=== PATIENT | female | born 1960 | race Hispanic/Latino ===

== ENCOUNTER 2023-12-21 11:14 | Emergency (ER) | payer OTHER ==
--- OUTSIDE RECORDS SUMMARY | 2023-12-21 11:17 | XMS REPORT | Continuity of Care Document ---
Author Name Unknown Address [address] [facility] [address] [place] [id number] [facility] Address [address] [facility] [address] [place] [address] Care Team Providers Care Airways Control Specialist Name Role Phone Randy Boyer Primary Care Physician [phone] Randy Boyer Attending Clinician Unavailable Mily Fuentes Attending Clinician Unavailab toan RADIOLOGY Attending Clinician Unavailable Ninoska Chris MD Attending Clinician [phone] NINOSKA CHRIS Attending Clinician Unavailable Doctor Unassigned, [place] Attending Clinician U navailable [email or web address]_S Attending Clinician UnavailFORREST Dowell Attending Clinician Unavailable Forrest Silveira MD Attending Clinician [phone] Radiology Attending Clinician Unavailable NINOSKA CHRIS Admitting Clinician Unavailable GC_[email or web address]_Kadiyala_S Admitting Clinician UnavailSIERRA Guardado Admitting Clinician Unavailable Payers Payer Name Policy Type Policy Number Effective Date Expirati on Date Source [facility] [id number] 2023 00:00:00 [facility] [id number] 2021 00:00:00 Problems Condition Name Condition Details Condition Category Status Onset Date Resolution Date Last Treatment Date Treating Clinician Comments Source Positive colorectal cancer screening using Cologuard test Positive colorectal cancer screening using Cologuard test Disease Active 11-26 00:00: 00 [facility] Colon cancer screening Colon cancer screening Disease Active 11-26 00:00: 00 [facility] Vasomotor symptoms due to menopause Vasomotor symptoms due to menopause Disease Active 01-14 00:00: 00 [facility] [id number] 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 Problem Active [facility] [id number] Nontraumat ic tear of left rotator cuff, unspecifie d tear extent Problem Active [facility] Allergies, Adverse Reactions, Alerts Allergy Name Allergy Type Status Severity Reaction(s) Onset Date Inactive Date Treating Clinician Comments Source Penicill in Propensi ty to adverse reaction s Active Itching 01-14 00:00: 00 [facility] PENICILL IN DRUG INGREDI Active ITCHING 01-14 00:00: 00 [facility] AMOXICIL JONNA DRUG INGREDI Active ITCHING 2014-09 00:00: 00 [facility] CODEINE DRUG INGREDI Active ITCHING 2014-09 00:00: 00 [facility] Amoxicil jonna Amoxicil jonna Active Unknown [facility] Codeine Codeine Active nausea and vomiting [facility] Social History Social Habit Start Date Stop Date Quantity Comments Source Sex Assigned At [facility] History SDOH Alcohol Frequency [facility] History SDOH Alcohol Std Drinks [facility] History SDOH Alcohol Binge [facility] History of tobacco use Passive smoker [facility] intake 2023-12-13 00:00:00 2023-12-13 00:00:00 0 /d [facility] Tobacco use and exposure 2023-12-13 00:00:00 2023-12-13 00:00:00 Former smokeless tobacco user [facility] Tobacco Comment 2023-11-27 00:00:00 2023-11-27 00:00:00 1-2 cigs occasional [facility] History of Social function 2023-11-27 00:00:00 2023-11-27 00:00:00 [facility] Alcohol Comment 2022-01-14 00:00:00 2022-01-14 00:00:00 ocassional [facility] Smoking Status Start Date Stop Date Source Smokes tobacco daily 2023-12-13 00:00:00 [facility] Ex-smoker 2023-11-27 00:00:00 2023[facility]27 [facility] Ordered Medication Name Filled Medication Name Start Date Stop Date Current Medication? Ordering Clinician Indication Dosage Frequency Signature (SIG) Comments Components Source dextroamphe tamine-amph etamine (ADDERALL) 30 mg tablet 12-12 12:17: 31 Yes 30mg Take 1 tablet by mouth in the morning and 1 tablet in the evening. [facility] ALBUTEROL SULFATE (VENTOLIN INHALE) 12-12 12:17: 31 Yes Inhale as needed. [facility] LORazepam (ATIVAN) 1 mg tablet 12-12 12:17: 31 Yes 1mg Take 1 tablet by mouth as needed for Anxiety or Agitation. [facility] ferrous sulfate (IRON ORAL) 12-12 12:17: 31 Yes Take by mouth. [facility] atorvastati n 10 mg tablet 12-12 12:17: 31 Yes 10mg Take 1 tablet by mouth at bedtime. [facility] Kenalog (Triamcinol one) Kenalog (Triamcinol one) 12-03 00:00: 00 No 1mL [facility] BUPivacaine HCl BUPivacaine HCl 12-03 00:00: 00 No 5mL [facility] LORazepam (ATIVAN) 1 mg tablet 11-26 09:30: 37 Yes 1mg Take 1 tablet by mouth as needed for Anxiety or Agitation. [facility] sodium,pota ssium,mag sulfates 17.5-3.13-1 .6 gram 18 00:00: 00 11-27 04:59 :00 No 177mL Take 177 mL by mouth once now for 1 dose. [facility] peg-electro lyte soln (GOLYTELY) 236-22.74-6 .74 -5.86 gram solution 18 00:00: 00 11-27 04:59 :00 No 4000mL Take 4,000 mL by mouth once now for 1 dose. [facility] oxybutynin XL 5 mg 24 hr tablet 11-21 00:00: 00 Yes 5mg Take 1 tablet by mouth every morning. [facility] Kenalog (Triamcinol one) Kenalog (Triamcinol one) - 00:00: 00 No 1mL [facility] BUPivacaine HCl BUPivacaine HCl 11-19 00:00: 00 No 4mL [facility] Kenalog (Triamcinol one) Kenalog (Triamcinol one) 11-19 00:00: 00 No 1mL [facility] BUPivacaine HCl BUPivacaine HCl 11-19 00:00: 00 No 4mL [facility] famotidine 20 mg tablet 2022-09 00:00: 00 Yes 20mg Take 1 tablet by mouth at bedtime. [facility] meloxicam 7.5 mg tablet 2022-09 00:00: 00 Yes 7.5mg Take 1 tablet by mouth at bedtime. [facility] fluticasone propion-maksim meteroL 250-50 mcg/dose inhalation disk 2022-09 00:00: 00 Yes Inhale every 12 (twelve) hours. [facility] omeprazole 40 mg capsule 2022-09 00:00: 00 Yes 40mg Take 1 capsule by mouth at bedtime. [facility] Kenalog (Triamcinol one) Kenalog (Triamcinol one) 9- 00:00: 00 No 40mg [facility] Naropin (Ropivacain e HCl) Naropin (Ropivacain e HCl) 05-12 00:00: 00 No 5mg [facility] Naropin (Ropivacain e HCl) Naropin (Ropivacain e HCl) 9 00:00: 00 No 5mg [facility] Kenalog (Triamcinol one) Kenalog (Triamcinol one) 9- 00:00: 00 No 40mg [facility] Kenalog (Triamcinol one) Kenalog (Triamcinol one) 9 00:00: 00 No 40mg [facility] Naropin (Ropivacain e HCl) Naropin (Ropivacain e HCl) 05-12 00:00: 00 No 5mg [facility] Bupivicaine Cookson Bupivicaine Cookson 8- 00:00: 00 No 2.5mg [facility] Kenalog (Triamcinol one) Kenalog (Triamcinol one) 8- 00:00: 00 No 40mg [facility] Kenalog (Triamcinol one) Kenalog (Triamcinol one) 8- 00:00: 00 No 40mg [facility] Bupivicaine Cookson Bupivicaine Cookson 8- 00:00: 00 No 2.5mg [facility] Kenalog (Triamcinol one) Kenalog (Triamcinol one) 8- 00:00: 00 No 40mg [facility] Bupivicaine Cookson Bupivicaine Cookson 8- 00:00: 00 No 2.5mg [facility] dextroamphe tamine-amph etamine (ADDERALL) 30 mg tablet 5-06 14:14: 16 Yes 30mg Take 30 mg by mouth 2 (two) times daily. [facility] ALBUTEROL SULFATE (VENTOLIN INHALE) 01-14 14:14: 16 Yes Inhale as needed. [facility] LORazepam (ATIVAN) 1 mg tablet 01-14 14:14: 16 Yes 1mg Take 1 mg by mouth as needed for Anxiety or Agitation. [facility] ESTROGENS, CONJUGATED (PREMARIN ORAL) 01-14 14:14: 16 Yes Take by mouth. [facility] atorvastati n 10 mg tablet 01-14 14:14: 16 Yes 10mg Take 10 mg by mouth at bedtime. [facility] conjugated estrogens (PREMARIN) 0.625 mg tablet 01-14 00:00: 00 Yes [id number] .625mg Take 1 tablet by mouth daily. [facility] Bupivicaine Cookson Bupivicaine Cookson 11-24 00:00: 00 No 2.5mg [facility] Kenalog (Triamcinol one) Kenalog (Triamcinol one) 16 00:00: 00 No 40mg [facility] Bupivicaine Cookson Bupivicaine Cookson 16 00:00: 00 No 2.5mg [facility] Kenalog (Triamcinol one) Kenalog (Triamcinol one) -16 00:00: 00 No 40mg [facility] Bupivicaine Cookson Bupivicaine Cookson 16 00:00: 00 No 2.5mg [facility] Kenalog (Triamcinol one) Kenalog (Triamcinol one) -16 00:00: 00 No 40mg [facility] Bupivicaine Cookson Bupivicaine Cookson 1-25 00:00: 00 No 2.5mg [facility] Kenalog (Triamcinol one) Kenalog (Triamcinol one) 1-25 00:00: 00 No 40mg [facility] Kenalog (Triamcinol one) Kenalog (Triamcinol one) 0 - 00:00: 00 No 40mg [facility] Bupivicaine Cookson Bupivicaine Cookson 2020-0 10-05 00:00: 00 No 2.5mg [facility] Kenalog (Triamcinol one) Kenalog (Triamcinol one) 2020-0 - 00:00: 00 No 40mg [facility] Bupivicaine Cookson Bupivicaine Cookson 2020-0 10-05 00:00: 00 No 2.5mg [facility] Bupivicaine Cookson Bupivicaine Cookson 2019-0 9- 00:00: 00 No 5mL [facility] Kenalog (Triamcinol one) Kenalog (Triamcinol one) 2019-0 9- 00:00: 00 No 40mg [facility] Kenalog (Triamcinol one) Kenalog (Triamcinol one) 2019-0 9- 00:00: 00 No 40mg [facility] Bupivicaine Cookson Bupivicaine Cookson 2019-0 9- 00:00: 00 No 5mL [facility] Kenalog (Triamcinol one) Kenalog (Triamcinol one) 2019-0 9- 00:00: 00 No 40mg [facility] Bupivicaine Cookson Bupivicaine Cookson 2019-0 9-29 00:00: 00 No 5mL [facility] Bupivicaine Cookson Bupivicaine Cookson 2019-0 6-09 00:00: 00 No 5mL [facility] Kenalog (Triamcinol one) Kenalog (Triamcinol one) 2019-0 6- 00:00: 00 No 40mg [facility] Bupivicaine Cookson Bupivicaine Cookson 2019-0 6-09 00:00: 00 No 5mL [facility] Kenalog (Triamcinol one) Kenalog (Triamcinol one) 02-17 00:00: 00 No 40mg [facility] Bupivicaine Cookson Bupivicaine Cookson 02-17 00:00: 00 No 5mL [facility] Kenalog (Triamcinol one) Kenalog (Triamcinol one) 02-17 00:00: 00 No 40mg [facility] Albuterol Sulfate HFA Albuterol Sulfate HFA No Albuterol Sulfate HFA Amoxicillin -Pot Clavulanate Amoxicillin -Pot Clavulanate No Amoxicilli n-Pot Clavulanat e LORazepam LORazepam No LORazepam Immunizations Ordered Immunization Name Filled Immunization Name Date Status Comments Source SARS-COV-2 COVID-19 PFIZER VACCINE 2021-05-19 00:00:00 Completed [facility] SARS-COV-2 COVID-19 PFIZER VACCINE 2021-05-19 00:00:00 Completed [facility] SARS-COV-2 COVID-19 PFIZER VACCINE 2021-04-26 00:00:00 Completed [facility] SARS-COV-2 COVID-19 PFIZER VACCINE 2021-04-26 00:00:00 Completed [facility] SARS-COV-2 COVID-19 PFIZER VACCINE Unknown Completed [facility] SARS-COV-2 COVID-19 PFIZER VACCINE Unknown Completed [facility] SARS-COV-2 COVID-19 PFIZER VACCINE Unknown Completed [facility] SARS-COV-2 COVID-19 PFIZER VACCINE Unknown Completed [facility] SARS-COV-2 COVID-19 PFIZER VACCINE Unknown Completed [facility] SARS-COV-2 COVID-19 PFIZER VACCINE Unknown Completed [facility] SARS-COV-2 COVID-19 PFIZER VACCINE Unknown Completed [facility] SARS-COV-2 COVID-19 PFIZER VACCINE Unknown Completed [facility] SARS-COV-2 COVID-19 PFIZER VACCINE Unknown Completed [facility] SARS-COV-2 COVID-19 PFIZER VACCINE Unknown Completed [facility] SARS-COV-2 COVID-19 PFIZER VACCINE Unknown Completed [facility] SARS-COV-2 COVID-19 PFIZER VACCINE Unknown Completed [facility] SARS-COV-2 COVID-19 PFIZER VACCINE Unknown Completed [facility] SARS-COV-2 COVID-19 PFIZER VACCINE Unknown Completed [facility] SARS-COV-2 COVID-19 PFIZER VACCINE Unknown Completed [facility] SARS-COV-2 COVID-19 PFIZER VACCINE Unknown Completed [facility] SARS-COV-2 COVID-19 PFIZER VACCINE Unknown Completed [facility] SARS-COV-2 COVID-19 PFIZER VACCINE Unknown Completed [facility] SARS-COV-2 COVID-19 PFIZER VACCINE Unknown Completed [facility] SARS-COV-2 COVID-19 PFIZER VACCINE Unknown Completed [facility] Vital Signs Vital Name Observation Time Observation Value Comments S ource temperature 2023-12-04 14:30:00 98.0 [degF] Com mon [facility] bmi 2023-12-04 14:30:00 20.52 kg/m2 Comm on [facility] blood pressure systolic 2023-12-04 14:30:00 112 mm[Hg] [facility] blood pressure diastolic 2023-12-04 14:30:00 74 mm[Hg] [facility] height 2023-12-04 14:30:00 62.5 [in_i] Comm on [facility] weight 2023-12-04 14:30:00 114 [lb_av] Comm on [facility] Systolic blood pressure 2023-11-27 14:33:00 137 mm[Hg] [facility] Diastolic blood pressure 2023-11-27 14:33:00 72 mm[Hg] [facility] Heart rate 2023-11-27 14:33:00 53 /min [facility] Body temperature 2023-11-27 14:33:00 36.72 Lotus [facility] Respiratory rate 2023-11-27 14:33:00 12 /min [facility] Body height 2023-11-27 14:33:00 160 cm [facility] Body weight 2023-11-27 14:33:00 53.706 kg [facility] BMI 2023-11-27 14:33:00 20.97 kg/m2 [facility] Oxygen saturation in Arterial blood by Pulse oximetry 2023-11-27 14:33:00 96 /min [facility] height 2023-11-20 15:00:00 62.5 [in_i] Comm on [facility] weight 2023-11-20 15:00:00 114 [lb_av] Comm on [facility] temperature 2023-11-20 15:00:00 98.4 [degF] Com [facility] bmi 2023-11-20 15:00:00 20.52 kg/m2 Comm on [facility] blood pressure systolic 2023-11-20 15:00:00 118 mm[Hg] Common [facility] blood pressure diastolic 2023-11-20 15:00:00 72 mm[Hg] [facility] height 2022-05-12 14:00:00 62.5 [in_i] Comm on [facility] weight 2022-05-12 14:00:00 114 [lb_av] Comm on [facility] temperature 2022-05-12 14:00:00 97.2 [degF] Com [facility] bmi 2022-05-12 14:00:00 20.52 kg/m2 Comm on [facility] blood pressure systolic 2022-05-12 14:00:00 126 mm[Hg] Common [facility] blood pressure diastolic 2022-05-12 14:00:00 84 mm[Hg] Common [facility] height 2022-04-19 15:30:00 62.5 [in_i] Comm on [facility] weight 2022-04-19 15:30:00 114 [lb_av] Comm on [facility] temperature 2022-04-19 15:30:00 98.0 [degF] Com [facility] bmi 2022-04-19 15:30:00 20.52 kg/m2 Comm on [facility] blood pressure systolic 2022-04-19 15:30:00 114 mm[Hg] [facility] blood pressure diastolic 2022-04-19 15:30:00 72 mm[Hg] Common [facility] t [facility] Systolic blood pressure 2022-01-14 19:11:00 150 mm[Hg] [facility] Diastolic blood pressure 2022-01-14 19:11:00 86 mm[Hg] [facility] Heart rate 2022-01-14 19:11:00 86 /min [facility] Body temperature 2022-01-14 19:11:00 36.72 Lotus [facility] Body height 2022-01-14 19:11:00 160 cm [facility] Body weight 2022-01-14 19:11:00 50.077 kg [facility] BMI 2022-01-14 19:11:00 19.56 kg/m2 [facility] Procedures Procedure Date / Time Performed Performing Clinicia n Source CONSENT/REFUSAL FOR DIAGNOSIS AND TREATMENT 2023-11-27 14:20:16 Doctor Unassigned, [place] [facility] REFERRAL- REQUEST/RESPONSE 2023-10-23 06:01:00 Doctor Unassigned, [place] [facility] Encounters Start Date/Time End Date/Time Encounter Type Admission Type Attending [facility] Facility Care Department Encounter ID Source 2022-04-19 15:30[facility]01 [id number] 2021-10-06 12:46:36 [facility] [id number] [facility] 2021-10-06 12:31:48 [facility] [id number] [facility] 2021-10-06 12:22:24 [facility] [id number] [facility] 2021-10-06 11:48:33 Outpatient Randy BoyerLC STLMLC [id number] [facility] 2023-12-22 00:00:00 2023-12-22 00:00:00 Outpatient R RADIOLOGY [facility] DEVIN [id number] [facility] 2023-12-21 00:00:00 2023-12-21 00:00:00 Telephone Ninoska Chris [facility] 1..840.114 350.1.13.10 4.2.7.2.686 [id number] [facility] 2023-12-04 00:00:00 2023-12-04 00:00:00 OFFICE VISIT ESTAB PT LEVEL 4 [facility] [id number] [facility] 2023-11-27 10:00:00 2023-11-27 11:10:09 Outpatient R NINOSKA CHRIS [facility] [id number] [facility] 2023-11-27 10:00:00 2023-11-27 11:10:09 Office Visit Ninoska Chris [facility] 1..840.114 350.1.13.10 4.2.7.2.686 [id number] [facility] 2023-11-27 00:00:00 2023-11-27 00:00:00 Orders Only Doctor Unassigned, [place] [facility] 1..840.114 350.1.13.10 4.2.7.2.686 [id number] [facility] 2023-11-27 00:00:00 2023-11-27 00:00:00 Telephone Ninoska Chris [facility] [id number] 350.1.13.10 4.2.7.2.686 [id number] [facility] 2023-11-20 00:00:00 2023-11-20 00:00:00 OFFICE VISIT ESTAB PT LEVEL 4 [facility] [id number] [facility] 2023-10-24 00:00:00 2023-10-24 00:00:00 Outpatient GC_GCBZW_Ka diyala_S PRIV PRIV [id number] [facility] 2023-10-23 00:00:00 2023-10-23 00:00:00 Orders Only Doctor Unassigned, [place] [facility] 1.840.114 350.1.13.10 4.2.7.2.686 [id number] [facility] 2023-07-11 00:00:00 2023-07-11 00:00:00 Outpatient GC_GCBZW_Ka diyala_S PRIV PRIV [id number] [facility] 2023-07-10 00:00:00 2023-07-10 00:00:00 Outpatient GC_GCBZW_Ka diyala_S PRIV PRIV [id number] [facility] 2022-07-22 13:00:00 2022-07-22 13:00:00 Outpatient R FORREST SILVEIRA [facility] [id number] [facility] 2022-05-12 00:00:00 2022-05-12 00:00:00 OFFICE VISIT ESTAB PT LEVEL 4 [facility] [id number] [facility] 2022-04-19 00:00:00 2022-04-19 00:00:00 OFFICE VISIT ESTAB PT LEVEL 4 [facility] [id number] [facility] 2022-01-17 00:00:00 2022-01-17 00:00:00 [facility] [id number] 2022-01-14 14:00:00 2022-01-14 14:35:16 Office Visit Forrest Silveira [facility] 1.840.114 350.1.13.10 4.2.7.2.686 [id number] [facility] 2022-01-14 14:00:00 2022-01-14 14:35:16 Outpatient FORREST SETH [facility] [id number] [facility] 2022-01-14 14:00:00 2022-01-14 14:00:00 Outpatient FORREST SETH [facility] [id number] [facility] 2022-01-14 00:00:00 2022-01-14 00:00:00 Orders Only Doctor Unassigned, [place] [facility] [id number] 350.1.13.10 4.2.7.2.686 [id number] [facility] 2021-12-23 00:00:00 2021-12-23 00:00:00 Orders Only Doctor Unassigned, [place] [facility] 1.2.840.114 350.1.13.10 4.2.7.2.686 [id number] [facility] 2021-04-14 00:00:00 2021-04-14 00:00:00 Outpatient [facility] [id number] [facility] 2020-11-24 00:00:00 2020-11-24 00:00:00 Outpatient [facility] [id number] [facility] 2020-10-05 00:00:00 2020-10-05 00:00:00 Outpatient [facility] [id number] [facility] 2020-09-17 13:51:29 2020-09-17 23:59:00 Hospital Encounter Radiology [facility] 1.2.840.114 350.1.13.10 4.2.7.2.686 [id number] [facility] 2020-09-17 13:51:29 2020-09-17 23:59:00 Outpatient R RADIOLOGY [facility] [id number] [facility] 2020-09-17 00:00:00 2020-09-17 00:00:00 [facility] [id number] [facility] 2020-09-14 00:00:00 2020-09-14 00:00:00 Outpatient [facility] [id number] [facility] 2020-09-02 00:00:00 2020-09-02 00:00:00 [facility] [id number] [facility] 2020-08-27 00:00:00 2020-08-27 00:00:00 [facility] [id number] [facility] 2020-08-04 00:00:00 2020-08-04 00:00:00 [facility] [id number] [facility] 2020-06-09 00:00:00 2020-06-09 00:00:00 [facility] [id number] [facility] Notes Date/Time Note Provider Source 2023-12-21 09:33:28 [id number]/ [id number]:33:28 Images from the original note were not included.Patient calling with questions about bowel prep. Reviewed instructions with patient and sent via [employer]. Patient denies any other questions at this time.Bowel Prep instructions:You must have a responsible adult bring you, stay and drive you home the day of the procedure. You will NOT be allowed to travel home alone or in a Taxi, Bus or Uber.You will need to buy:GoLytely - Prescription will be sent to your pharmacyDulcolax 5mg tablets (You will need 4)-Can be purchased over the counterMedications:You may need to change your medication routine if you take medications such as fish oil, diabetes medication, anti-inflammatory medications, or blood thinners. You may take Tylenol.If you take any of the following blood thinners you need to inform your provider and may require clearance from your cranberry grower or PCP: Plavix, Coumadin, Effient, Eliquis, Xarelto, Brilinta or PradaxaOne week before the exam: Do not take Iron supplements. Do not eat nuts, corn or popcorn.The day before the exam: TBDNO SOLID FOOD, MILK OR CREAM PRODUCTSDrink only clear liquids all day (breakfast, lunch, and dinner).Clear liquids include chicken/beef broth, jello, pulp-less fruit Juice, black coffee (no creamer), tea, soft drinks, kiko amina, Gatorade, PowerAde, and popsicles. * NOTHING RED OR PURPLE*At Noon: take two (2) Dulcolax tabletsAt Noon: start drinking GoLytely. You may mix with Jones, Crystal Light, or any other flavoring (as long as it is not red, blue or purple)Drink an 8-oz glass of GoLytely every 10 to 15 minutes until the bottle is half empty (2 L)At 8:00 PM: take two (2) Dulcolax tabletsContinue to drink clear liquids until midnight, then nothing to eat/drink after midnight except for medicationsDay of exam: TBDAt 4:00 AM: Drink one 8-oz glass of GoLytely every 10 to 15 minutes until the second half of the bottle is empty (2 L)Do not eat or drink anything the rest of the morning (if you are scheduled later afternoon you can remain on clear liquids until 2 hours prior to arrival time for procedure). You may take your medications with a small sip of water.NO CHEWING GUM OR HARD CANDY 72972-2Ubtwusroj encounter RiypSS4849-50-27A61:34:24Telepho ne encounter NoteTXT1.2.840.481882.1.13.104.2 .7.2.909563|[id number] kelsy for patient keao76701-4BvvqQAEJLBHPBAXPjmptz mercy C-CDA narrative [id number] A Hall RNUTMBUTMB - [address] CqdpBroxphmpaWccgrxmmtDYPM534103 6163RGAXKVTTCEXGXKMFFIRNNL9800-6 09:34:241.2.840.968171.1.72 .3.15|1.2.840.328137.1.13.104.2. 7.2.727879_[id number] Leslie Aguero RN [facility] 2023-11-30 13:40:09 scd9IQN350QNgnnRcgdF ieeATFWxhqDO KXZNxgceQs32VMUxiefYm6EFGFZcX3KU 1686-37-08F71:40:09 Spoke with patient, states she will be picking up golytley from the pharmacy today. 18630-7Dqsznzyde encounter ApdkOU6328-84-64Z47:41:01Telepho ne encounter NoteTXT1.2.840.485216.1.13.104.2 .7.2.285132|[id number] e for patient kldz92066-1UwbxAKIVVOALZYQLaldpl mercy C-CDA narrative [id number] A Hall RN[address] IszeVegjcqgciAmunymnxwFSOL577712 1740DCDQMGCWRXCOKEUZVNIHUF0035-8 3:41:011.2.840.505660.1.72 .3.15|1.2.840.870729.1.13.104.2. 7.2.727879_[id number] Leslie Aguero RN [facility] 2023-11-27 12:16:10 aqXfsnNlLPTq0YRUgReI 9V4Njo4VJ/Xz CnBSuogJAF4TlzUwueAxnpLI9Z6Eo2Z0 7867-93-65U81:16:10 Pt states she went to pharmacy to pick up driver golytley and pharmacy is trying to give her suprep. Pt is wanting order changed, please assist. 59593-6Xrfyltial encounter AlkaUV1756-75-64O26:17:06Telepho ne encounter NoteTXT1.2.840.669518.1.13.104.2 .7.2.489392|[id number] e for patient mcnh87145-0EtavMCCBAVTERYAHuivkt mercy C-CDA narrative [id number] E [address]TXTX[address] 7606PLPAAMBSAORQGNTCHDGOJV1274-0 2:17:061.2.840.189679.1.72 .3.15|1.2.840.470016.1.13.104.2. 7.2.727879_[id number] Mariam Napier [facility] 2023-11-27 10:00:00 39LyKy1DD2Evo3CnlNb5 QpTk9FsAA1zA xbfhLUwlsFQo09/mKwhAabkFFJXjlpAw 3575-84-99S89:00:00Addended by: GRETCHEN TIM LVN on: 11/27/2023 10:51 AMModules accepted: Orders [id number] YucwpgmwSH2360-71-61E68:51:48Add endum DocumentTXT1.2.840.708347.1.13.1 04.2.7.2.190594|[id number] lable for patient ncuh16882-0YporGNWWGCQUYZXDmmpzd mercy C-CDA narrative [id number] [facility] [address]TXTX[address] 7273RUJRPNYLXMPGKVVCWUDSXI4731-0 0:51:481.2.840.252775.1.72 .3.15|1.2.840.523201.1.13.104.2. 7.2.727879_[id number] Gretchen Tim LVN [facility] 2023-11-27 10:00:00 l6ZGrM1oAsdP5N2qRjLZ VyVZ63RILJIc O6G007jVyc/DOevWvVQsu8754cW4DP/i 8116-92-07S02:00:00Addended by: GRETCHEN TIM LVN on: 11/27/2023 11:38 AMModules accepted: Orders [id number] ZejcnavpUC1583-41-72O12:38:47Add endum DocumentTXT1.2.840.447715.1.13.1 04.2.7.2.101811|[id number] lab for patient yjhh90703-0PkeoQFVXYKUJYBPLnxojd mercy C-CDA narrative textUT[address] FlpbEoywpunbeSmlyontkcUMPH352598 2961NXIUSELJMWVUOSWQEKJVQL6248-2 :38:471.2.840.832267.1.72 .3.15|1.2.840.003863.1.13.104.2. 7.2.727879_[id number] [facility]"
[2023-12-21] MEDS ORDERED: ONDANSETRON 4 MG/2 ML VIAL ONE (11:31)
[2023-12-21] MEDS ORDERED: MORPHINE 4 MG/ML SYR ONE (11:31)
[2023-12-21 11:37] LABS: Absolute Basophils 0.1 K/uL (0-0.5); Absolute Lymphocytes (CBC) 3.1 K/uL (0.7-4.9); Absolute Monocytes 0.9 K/uL (0.1-1.3); Absolute Neutrophil 11.1 K/uL (1.8-8.0); Basophils % 0.6 % (0-1.3); Eosinophils % 0.1 % (0-4.4); Hematocrit 40.7 % (36.0-45.0); Hemoglobin 13.1 g/dL (12.0-15.0); Lymphocytes % 20.3 % (15.3-44.8); MCH 30.7 pg (27.0-35.0); MCHC 32.1 g/dL (32.0-36.0); MCV 95.5 fL (80-100); MPV 6.9 fL (7.6-11.3); Monocytes % 6.1 % (3.3-12.3); Neutrophils % 72.9 % (41.7-73.7); Nucleated Red Blood Cells % 0.1 % (0-0); Platelets 491 thou/uL (152-406); RBC Red Blood Cell Count 4.26 M/uL (3.86-4.86); Red Cell Distribution Width 15.3 % (12.1-15.2)
[2023-12-21 11:59] LABS: Albumin 3.9 g/dL (3.4-5.0); Albumin/Globulin Ratio 1.1 (1.1-1.8); Anion Gap 10.6 mEq/L (5.0-15.0); Bilirubin Direct 0.1 mg/dL (0-0.2); Bilirubin Indirect, Calculated 0.3 mg/dL (0.2-0.8); Bilirubin Total 0.4 mg/dL (0.2-1.0); Globulin 3.6 g/dL (2.3-3.5); Potassium 3.6 mEq/L (3.5-5.1); Protein, Total 7.5 g/dL (6.4-8.2); Troponin High Sensitivity 5.4 pg/mL (<58.9)
--- NOTE | 2023-12-21 12:16 | RAD REPORT ---
EXAM DESCRIPTION: RAD - Chest Single View - 12/21/2023 12:08 pm CLINICAL HISTORY: HTN COMPARISON: Chest Pa And Lat (2 Views) dated 12/23/2022 FINDINGS: Lines: None. Lungs: No evidence of edema or pneumonia. Pleural: No significant pleural effusions or pneumothorax. Cardiac: The heart size is within normal limits. Mediastinum: Within normal limits. Bones: No acute fractures. Other: None IMPRESSION: No acute cardiopulmonary disease.
--- NOTE | 2023-12-21 12:27 | RAD REPORT ---
EXAM DESCRIPTION: CT - Head Brain Wo Cont - 12/21/2023 12:20 pm CLINICAL HISTORY: sudden onset headache COMPARISON: Head angio dated 12/21/2023 TECHNIQUE: All CT scans are performed using dose optimization technique as appropriate and may inclu de automated exposure control or mA/KV adjustment according to patient size. FINDINGS: No intracranial hemorrhage, hydrocephalus or extra-axial fluid collection.No areas of brai n edema or evidence of midline shift. The paranasal sinuses and mastoids are clear. The calvarium is intact. IMPRESSION: No acute intracranial abnormality.
--- NOTE | 2023-12-21 12:29 | RAD REPORT ---
EXAM DESCRIPTION: CT - Neck Angio - 12/21/2023 12:20 pm CLINICAL HISTORY: headache/neck pain COMPARISON: No comparisons TECHNIQUE: CT angiography of the neck vessels was performed with maximum intensity reformatted image s. CAROTID STENOSIS REFERENCE USING NASCET CRITERIA: Mild - <50% stenosis. Moderate - 50-69% stenosis. Severe - 70-94% stenosis. Near occlusion - 95-99% stenosis. Occluded - 100% stenosis. All CT scans are performed using dose optimization technique as appropriate and may include automated exposure control or mA/KV adjustment according to patient size. FINDINGS: A left aortic arch is identified with normal three vessel configuration of the great vesse ls. No significant flow abnormality is seen of the common carotid bilaterally. No significant stenosis is identified involving the cervical segments of both internal carotid arteri es. Normal flow is seen within both vertebral arteries. Slightly left dominant vertebral artery. Multilevel degenerative changes are present in the spine. IMPRESSION: No significant flow abnormality of the neck vessels is identified.
--- NOTE | 2023-12-21 12:40 | RAD REPORT ---
EXAM DESCRIPTION: CT - Head angio - 12/21/2023 12:20 pm CLINICAL HISTORY: headache, sudden onset COMPARISON: No comparisons TECHNIQUE: CT angiography of the head was performed with maximum intensity reformatted images. 3D ma ximum intensity pixel (MIP) reconstructions were created All CT scans are performed using dose optimization technique as appropriate and may include automated exposure control or mA/KV adjustment according to patient size. FINDINGS: Anterior circulation: 6 mm x 4 mm saccular aneurysm which is bilobed arising from the left carotid terminus at the MCA/SHERMAN bifurcation. No large vessel occlusion. No hemodynamically significant stenosis. No arteriovenous mal formation identified. Posterior circulation: No aneurysm or large vessel occlusion. No hemodynamically significant stenosis. No arteriovenous malf ormation identified. 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 No large vessel occlusion or stenosis.
--- NOTE | 2023-12-21 12:42 | RAD REPORT ---
EXAM DESCRIPTION: CTAbdomen Pelvis W Contrast - 12/21/2023 12:20 pm CLINICAL HISTORY: abd pain, hypertension, sudden onset COMPARISON: Abdomen Pelvis W Contrast dated 12/23/2022; CT ABD PELVIS W CONTRAST dated 04/29/2012; C T ABD PELVIS W CONTRAST dated 04/25/2012 TECHNIQUE: CT of the abdomen and pelvis was performed. All CT scans are performed using dose optimization technique as appropriate and may include automated exposure control or mA/KV adjustment according to patient size. FINDINGS: Lower chest: No acute abnormality. Liver: Too small to characterize low-density liver lesions noted which have benign imaging features. Biliary: No biliary ductal dilatation. Stomach: No significant focal abnormality. Duodenum: No significant focal abnormality. Pancreas: No significant abnormality. Spleen: No significant abnormality. Adrenal: No suspicious lesions. Kidney/ureter: No hydronephrosis. No renal calculi. Retroperitoneum: No retroperitoneal adenopathy. Vascular: No aneurysm. Bowel: No significant focal abnormality. Normal appendix. Peritoneum: No ascites or free air. Small fat containing umbilical hernia. Bladder: Grossly unremarkable. Reproductive: Hysterectomy. Bones: No acute fracture. Moderate disc height loss at L4-5. Other: n/a IMPRESSION: No acute intra-abdominal or pelvic finding.
[2023-12-21] MEDS ORDERED: NA CHLORIDE 0.9% 1,000 ML ONE (13:20)
[2023-12-21] MEDS ORDERED: HYDROMORPHONE HCL 1 MG/ML INJ ONE (13:20)
[2023-12-21 15:14] LABS: CSF Glucose 60 mg/dL (40-70)
[2023-12-21 15:35] LABS: Appearance CLEAR (CLEAR); Body Fluid Source CSF; Body Fluid WBC 1 /mm^3; Color of Supernate Not Xanthochromic (Not Xantho); Color of fluid Colorless (COLORLESS); Tube # #2
[2023-12-21 15:42] LABS: Appearance CLEAR (CLEAR); Body Fluid Source CSF; Body Fluid WBC 0 /mm^3; Color of Supernate Not Xanthochromic (Not Xantho); Color of fluid Colorless (COLORLESS); Fluid Total Volume 11.5 ml; Tube # #4
--- NOTE | 2023-12-21 17:10 | ER ---
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 ll1 GARCIA and R numbness since this started. Coronavirus screen: Client denies travel out of the [place] in the last 14 days. At this time, the client does not indicate any symptoms associated with coronavirus-19. Ebola Screen: Patient denies travel to an Ebola-affected area in the 21 days before illness onset. Initial Sepsis Screen: Does the patient meet any 2 criteria? No. Patient's initial sepsis screen is negative. Does the patient have a suspected source of infection? No. Patient's initial sepsis screen is negative. Risk Assessment: Do you want to hurt yourself or someone else? Patient reports no desire to harm self or others. Onset of symptoms was December 21, 2023. 11:18 Method Of Arrival: Wheelchair ll1 11:18 Acuity: ARIELLA 2 ll1 Triage Assessment: 11:19 General: Appears uncomfortable, ill, Behavior is cooperative, appropriate for age, ll1 drowsy, restless. Pain: Complains of pain in abdomen Pain currently is 9 out of 10 on a pain scale. Quality of pain is described as aching. GI: Reports upper abdominal pain, nausea. Musculoskeletal: Reports numbness in right arm pain in right arm. Historical: - Allergies: 11:19 Codeine; ll1 11:19 Amoxicillin; ll1 - PMHx: 11:19 Diabetes mellitus; ll1 - Immunization history:: Adult Immunizations up to date. - Infectious Disease History:: Denies. - Social history:: Smoking status: Patient denies any tobacco usage or history of. Screenin:37 Abuse screen: Denies threats or abuse. Denies injuries from another. Nutritional iw screening: No deficits noted. Tuberculosis screening: No symptoms or risk factors identified. 13:[address] [facility] ED Fall Risk Assessment (Adult) History of falling in the last 3 months, db including since admission No falls in past 3 months (0 pts) Confusion or Disorientation No (0 pts) Intoxicated or Sedated No (0 pts) Impaired Gait No (0 pts) Mobility Assist Device Used No (0 pt) Altered Elimination No (0 pt) Score/Fall Risk Level 0 - 2 = Low Risk Oriented to surroundings, Maintained a safe environment. Assessment: 11:30 General: Appears uncomfortable, Behavior is anxious, crying. Pain: Complains of pain in iw head, abdomen and right arm Pain currently is 10 out of 10 on a pain scale. Neuro: Level of Consciousness is awake, alert, obeys commands, Oriented to person, place, time, situation, Moves all extremities. Full function. Cardiovascular: Patient's skin is warm and dry. Respiratory: Respiratory effort is even, unlabored, Respiratory pattern is regular, symmetrical, Ventilator assessment:. Derm: Skin is intact, is healthy with good turgor. Musculoskeletal: Range of motion: intact in all extremities. 12:55 GI: Bowel sounds present X 4 quads. Abd is soft. db 13:56 Reassessment: Patient appears in no apparent distress at this time. Patient and/or db family updated on plan of care and expected duration. Pain level reassessed. Patient is alert, oriented x 3, equal unlabored respirations, skin warm/dry/pink. Reassessment: Patient states feeling better. Patient states symptoms have improved. General: Appears in no apparent distress. comfortable, Behavior is calm, cooperative. Pain:. 14:12 Reassessment: DR. FOX AT PATIENT BEDSIDE FOR LP. db 15:32 Reassessment: PATIENT AMBULATORY TO RESTROOM. db 15:33 Reassessment: Patient appears in no apparent distress at this time. Patient and/or db family updated on plan of care and expected duration. Pain level reassessed. Patient is alert, oriented x 3, equal unlabored respirations, skin warm/dry/pink. Pain: Pain currently is 6 out of 10 on a pain scale. 16:40 Reassessment: Patient appears in no apparent distress at this time. Patient and/or db family updated on plan of care and expected duration. Pain level reassessed. Patient is alert, oriented x 3, equal unlabored respirations, skin warm/dry/pink. PATIENT AMBULATORY TO RESTROOM Patient states symptoms have improved. General: Appears in no apparent distress. comfortable, Behavior is calm, cooperative. Vital Signs: 11:18 BP 176 / 117; Pulse 71; Resp 20; Temp 97.1; Pulse Ox 100% ; Pain 9/10; ll1 12:30 BP 139 / 73; Pulse 62; Resp 18; Pulse Ox 98% on R/A; db 13:15 BP 146 / 84; Pulse 60; Resp 18; Pulse Ox 99% on R/A; db 13:30 BP 140 / 83; Pulse 60; Resp 18; Pulse Ox 100% on R/A; db 15:30 BP 150 / 76; Pulse 57; Resp 18; Pulse Ox 98% on R/A; db 16:50 BP 156 / 96; Pulse 64; Resp 18; Pulse Ox 100% on R/A; db 11:18 Pain Scale: Adult ll1 Kervin Coma Score: 16:57 Eye Response: spontaneous(4). Motor Response: obeys commands(6). Verbal Response: rn oriented(5). Total: 15. ED Course: 11:15 Patient arrived in ED. rg4 11:16 Xavier Fox MD is Attending Physician. rn 11:19 Triage completed. ll1 11:19 Arm band placed on. ll1 11:24 Patient placed in an exam room, on a stretcher. iw 11:29 Brooklyn Clark, RN is Primary Nurse. iw 11:30 Initial lab(s) drawn, by me, sent to lab. Inserted saline lock: 22 gauge in left iw antecubital area, using aseptic technique. Blood collected. 11:36 Lights dimmed. iw 12:09 XRAY Chest (1 view) In Process Unspecified. EDMS 12:19 CT Head Brain wo Cont In Process Unspecified. EDMS 12:19 CT Head Angio In Process Unspecified. EDMS 12:[address] In Process Unspecified. EDMS 12:20 CT Abd/Pelvis - IV Contrast Only In Process Unspecified. EDMS 13:50 Consent for a lumbar puncture explained by staff, explained by physician, signed by db patient. 14:30 Assist provider with lumbar puncture: Set up LP tray. Performed by Xavier Fox MD CSF db is clear. Puncture site dressed with band aid, Procedure was successful. Patient tolerated well. 15:32 cold compress to forehead for headache comfort. db 16:30 Patient has correct armband on for positive identification. Placed in gown. Bed in low db position. Call light in reach. Side rails up X 1. Client placed on continuous cardiac and pulse oximetry monitoring. NIBP monitoring applied. front desk monitor on. Pulse ox on. NIBP on. 16:32 ice pack given per pt request. jg11 17:00 Provided Education on: followup. db 17:08 Tremaine Singh MD is Referral Physician. rn 17:15 IV discontinued, intact, bleeding controlled, No redness/swelling at site. db Administered Medications: 11:36 Drug: morphine IVP or IV 4 mg IVP once over 4 mins Route: IVP; Infused Over: 4 mins; iw Site: left antecubital; 17:00 Follow up: Response: No adverse reaction db 11:36 Drug: Ondansetron IVP 4 mg IVP once; over 2 minutes Route: IVP; Site: left antecubital; iw 17:00 Follow up: Response: No adverse reaction db 13:22 Drug: HYDROmorphone IVP 1 mg IVP once Route: IVP; Site: left antecubital; db 17:00 Follow up: Response: No adverse reaction db 13:22 Drug: NS 0.9% IV 1000 ml IV at 1000 ml once Route: IV; Rate: 1000 ml; Site: left db antecubital; 17:00 Follow up: IV Status: Completed infusion; IV Intake: 1000ml db Medication: 16:30 VIS not applicable for this client. db Intake: 17:00 IV: 1000ml; Total: 1000ml. db Outcome: 17:09 Discharge ordered by . rn 17:15 Discharged to home ambulatory, with family, db 17:15 Condition: stable 17:15 Discharge instructions given to patient, Instructed on discharge instructions, follow up and referral plans. Prescriptions given X 1, 17:23 Patient left the ED. nj1 Signatures: Dispatcher [employer] EDBrooklyn Metcalf RN RN iw Xavier Fox MD MD rn Garcia, Rubi rg4 Jaci Villalpando RN RN ll1 Yaneth Barrientos RN RN db Jaco, Norma, RN RN nj1 Terrell Fuentes jg11
--- NOTE | 2023-12-21 17:10 | EDPHYS ---
Physician Documentation [facility] Name: Siria Meyers Age: 63 yrs Sex: Female : 1960 Arrival Date: 12/21/2023 Time: 11:14 Bed 15 Private MD: ED Physician Xavier Fox HPI: 12/20 16:47 This 63 yrs old Female presents to ER via Wheelchair with complaints of rn Abdominal Pain, Headache. 16:47 The patient complains of pain to the top of head and forehead. The patient describes rn the headache as aching, throbbing. Onset: The symptoms/episode began/occurred just prior to arrival. Associated signs and symptoms: Pertinent positives: Abdominal pain, Pertinent negatives: fever, neck stiffness, vision changes, vision loss, vertigo. Severity of symptoms: At its worst the pain was moderate, in the emergency department the pain is unchanged. Historical: - Allergies: 11:19 Codeine; ll1 11:19 Amoxicillin; ll1 - PMHx: 11:19 Diabetes mellitus; ll1 - Immunization history:: Adult Immunizations up to date. - Infectious Disease History:: Denies. - Social history:: Smoking status: Patient denies any tobacco usage or history of. Exam: 16:51 ECG was reviewed by the Attending Physician. rn Vital Signs: 11:18 BP 176 / 117; Pulse 71; Resp 20; Temp 97.1; Pulse Ox 100% ; Pain 9/10; ll1 12:30 BP 139 / 73; Pulse 62; Resp 18; Pulse Ox 98% on R/A; db 13:15 BP 146 / 84; Pulse 60; Resp 18; Pulse Ox 99% on R/A; db 13:30 BP 140 / 83; Pulse 60; Resp 18; Pulse Ox 100% on R/A; db 15:30 BP 150 / 76; Pulse 57; Resp 18; Pulse Ox 98% on R/A; db 16:50 BP 156 / 96; Pulse 64; Resp 18; Pulse Ox 100% on R/A; db 11:18 Pain Scale: Adult ll1 Kervin Coma Score: 16:57 Eye Response: spontaneous(4). Motor Response: obeys commands(6). Verbal Response: rn oriented(5). Total: 15. Procedures: 14:27 Lumbar Puncture: Patient placed in left lateral decubitus position. Prepped with rn Betadine. Draped using sterile technique. Collected 15 ml's of Puncture site dressed with band aid, Patient tolerated well. Opening pressure 36, closing pressure 20, tolerated well. MDM: 11:16 Patient medically screened. rn 16:57 Differential diagnosis: hypertensive headache, intracerebral hemorrhage, subarachnoid rn bleed, subdural hematoma, tension headache, uremia. Data reviewed: vital signs, nurses notes, lab test result(s), radiologic studies, CT scan. 17:03 Counseling: I had a detailed discussion with the patient and/or guardian regarding the rn historical points, exam findings, and any diagnostic results supporting the discharge/admit diagnosis, lab results, radiology results, the need for outpatient follow up, to return to the emergency department if symptoms worsen or persist or if there are any questions or concerns that arise at home. Response to treatment: the patient's symptoms have markedly improved after treatment, and as a result, I will discharge patient. ED course: Patient with elevated intracranial pressure, drain down to closing pressure of 20 with improvement of symptoms. CT angio of head and neck negative for bleeding or obstruction but did show incidental left sided aneurysm. No evidence of rupture. Patient's pain is more on the right side anyway. Likely has been there for some time with uncontrolled hypertension. Will discharge home with neurology and neurosurgery follow-up. Patient is going to watch her blood pressure as she states has not been aware of hypertension. Patient will also follow-up with neurology for increased intracranial pressure. 12/20 11:23 Order name: Basic Metabolic Panel; Complete Time: 12:30 12/20 11:23 Order name: CBC with Diff; Complete Time: 12:30 12/20 11:23 Order name: LFT's; Complete Time: 12:30 rn 12/20 11:23 Order name: NT PRO-BNP; Complete Time: 12:30 12/20 11:23 Order name: Troponin HS; Complete Time: 12:30 rn 12/20 11:23 Order name: Lipase; Complete Time: 12:30 rn 12/20 14:27 Order name: Csf Culture rn 12/20 14:27 Order name: Fluid Cell Count,Body; Complete Time: 15:54 12/20 14:27 Order name: Spinal Fluid Profile; Complete Time: 15:54 12/20 11:23 Order name: CT Head Brain wo Cont; Complete Time: 12:30 rn 12/20 11:23 Order name: CT Head Angio; Complete Time: 12:45 rn 12/20 11:23 Order name: Neck Angio CT; Complete Time: 12:30 rn 12/20 11:23 Order name: CT Abd/Pelvis - IV Contrast Only; Complete Time: 12:45 rn 12/20 11:23 Order name: XRAY Chest (1 view); Complete Time: 12:30 rn 12/20 11:23 Order name: Cardiac monitoring; Complete Time: 12:44 rn 12/20 11:23 Order name: EKG - Nurse/Tech; Complete Time: 12:00 rn 12/20 11:23 Order name: IV Saline Lock; Complete Time: 11:29 rn 12/20 11:23 Order name: Labs collected and sent; Complete Time: 11:29 rn 12/20 11:23 Order name: O2 Per Protocol; Complete Time: 12:44 rn 12/20 11:23 Order name: O2 Sat Monitoring; Complete Time: 12:44 rn 12/20 12:56 Order name: LP Consents; Complete Time: 14:53 rn 12/20 14:27 Order name: LP Setup; Complete Time: 14:53 rn EC:51 Rate is 63 beats/min. Rhythm is regular. QRS [place] is Normal. PA interval is normal. QRS rn interval is normal. QT interval is normal. No Q waves. T waves are Normal. No ST changes noted. Clinical impression: Normal ECG. Interpreted by me. Reviewed by me. Administered Medications: 11:36 Drug: morphine IVP or IV 4 mg IVP once over 4 mins Route: IVP; Infused Over: 4 mins; iw Site: left antecubital; 17:00 Follow up: Response: No adverse reaction db 11:36 Drug: Ondansetron IVP 4 mg IVP once; over 2 minutes Route: IVP; Site: left antecubital; iw 17:00 Follow up: Response: No adverse reaction db 13:22 Drug: HYDROmorphone IVP 1 mg IVP once Route: IVP; Site: left antecubital; db 17:00 Follow up: Response: No adverse reaction db 13:22 Drug: NS 0.9% IV 1000 ml IV at 1000 ml once Route: IV; Rate: 1000 ml; Site: left db antecubital; 17:00 Follow up: IV Status: Completed infusion; IV Intake: 1000ml db Disposition Summary: 12/21/23 17:09 Discharge Ordered Notes: Location: Home rn Problem: new rn Symptoms: have improved rn Condition: Stable rn Diagnosis - Headache rn - Benign intracranial hypertension rn - Cerebral aneurysm, nonruptured rn Followup: rn - With: Tremaine Singh MD - When: As needed - Reason: Recheck today's complaints, Re-evaluation by your physician Discharge Instructions: - Discharge Summary Sheet rn - Cerebral Aneurysm rn - Idiopathic Intracranial Hypertension rn Forms: - Medication Reconciliation Form rn - Thank You Letter rn - Antibiotic broadcast journalist - Prescription Opioid Use rn - Patient Portal Instructions rn - Leadership Thank You Letter rn Prescriptions: - Tramadol 50 mg Oral Tablet - take 1 tablet ORAL route every 8 hours as needed; 12 tablet; Refills: 0, rn Product Selection Permitted Signatures: Dispatcher [employer] Brooklyn Clark RN RN iw Nieto, Roman, MD MD rn Lewis, Lynsay, RN RN ll1 Yaneth Barrientos RN RN db Corrections: (The following items were deleted from the chart) 11:23 11:23 Abdomen Pelvis W Con+CT.RAD.BRZ ordered. EDMS EDMS 11: 11:23 BASIC METABOLIC PANEL+C.LAB.BRZ ordered. EDMS EDMS 11: 11:23 CBC+H.LAB.BRZ ordered. EDMS EDMS 11:23 11:23 HEPATIC FUNCTION+C.LAB.BRZ ordered. EDMS EDMS 11:24 11:23 PROBNP+C.LAB.BRZ ordered. EDMS EDMS 11:24 11:23 Troponin High Sensitivity+C.LAB.BRZ ordered. EDMS EDMS 11:24 11:23 LIPASE+C.LAB.BRZ ordered. EDMS EDMS 11:24 11:24 Chest Single View+RAD.RAD.BRZ ordered. EDMS EDMS
[2023-12-21 19:13] VITALS: BP 150/76; TEMP 97.1; O2SAT 98
--- NOTE | 2023-12-22 13:39 | EKG ---
Test Date: 2023-12-21 Test Time: 11:58:06 Trucker: EUGENIA MEASUREMENT RESULTS: Intervals: Rate: 63 NM: 148 QRSD: 78 QT: 472 QTc: 483 [place]: P: 79 NM: 148 QRS: 59 T: 56 INTERPRETIVE STATEMENTS: Normal sinus rhythm Normal ECG No previous ECG available for comparison Electronically Signed On 12-22-23 13:37:48 CDT by Aaron Faye
== END 2023-12-21 17:23 | disposition home or self-care (01) ==
LOC: ER 11:14
DX: R51.9 Headache, unspecified (principal); G93.2 Benign intracranial hypertension; I67.1 Cerebral aneurysm, nonruptured; E11.9 Type 2 diabetes mellitus without complications; Z88.1 Allergy status to other antibiotic agents; Z88.5 Allergy status to narcotic agent
CPT/HCPCS: 96361; 93005; 87070; 85025; 80048; 36415; 89050 ×2; 84157; 82945; 80076; 84484; 83690; 83880; 70450; 70496; 70498; 74177; 71045; 62270; 96375; 96374; 99285; Q9967; J1170; J2405; J7030

== ENCOUNTER 2024-09-27 06:48 | Emergency (ER) | payer OTHER ==
--- OUTSIDE RECORDS SUMMARY | 2024-09-27 06:54 | XMS REPORT | Continuity of Care Document ---
Author Name Unknown Address [address] [facility] Dariel. [address] [facility] Address [address] [facility]. [address] [place] [address] Care Team Providers Care Steel Tester Name Role Phone RANDY BOYER Primary Care Physician UnavailRIC Olmedo Attending Clinician Unavailab JEWELL Kevin Attending Clinician Unavailable Randy Boyer Attending Clinician Unavailable Mily Fuentes Attending Clinician Unavailab PARADISE Au Attending Clinician Unavailab Montoya Attending Clinician Unavailable PAULO HENDRICKS Attending Clinician Gloria Hendricks MD, Paulo Ortiz Attending Clinician + [phone] Doctor Unassigned, [place] Attending Clinician U ger Schneider MD, Ric Aguirre Attending Clinician [phone] Rob CARVAJAL, Dimitri Attending Clinician [phone] Jesús CARVAJAL, Theo Moon Attending Clinic americo Paradise Shin Attending Clinician Reji, [facility] Attending Clinician Unavailtiffany Rivas RN, Mary Benítez Attending Clinician [phone] DEBO TAYLOR Attending Clinician Unavailable ZIRPOLI, DEBO Attending Clinician Unavailable PAULO ARCOS Attending Clinician Unavailab toan Broussard MD, Amir Attending Clinician [phone] Nik CARVAJAL, Aries Attending Clinician [phone] Bill CARVAJAL, Paulo Attending Clinician [phone] CRISTINA DICK Attending Clinician Unavailable David FILM PAINTER, Cristina Attending Clinician [phone] BHAVESH BOYER Attending Clinician Unavailab toan Peña MD, Micaela Attending Clinician [phone] Twin CARVAJAL, Narayan Attending Clinician [phone] Vu CARVAJAL, Dorina Attending Clinician [phone] Mik CARVAJAL, Gopi Attending Clinician [phone] Shadia CARVAJAL, Jaycob Sheffield Attending Clinician [phone] Franklyn HYMAN, Yajaira R Attending Clinician Unavail able Doctor Unassigned, [place] Attending Clinician U ger Chris MD, Jewell Attending Clinician [phone] Edward Tobias CRNA Attending Clinician [phone] [email or web address] Attending Clinician UnavailFORREST Dowell Attending Clinician Unavailable Prakash CARVAJAL, Forrest Vazquez Attending Clinician [phone] Radiology Attending Clinician Unavailable RIC SCHNEIDER Admitting Clinician Unavailab JEWELL Kevin Admitting Clinician Unavailable PAULO HENDRICKS Admitting Clinician Unayolanda Hendricks MD, Paulo Ortiz Admitting Clinician + [phone] ARIES GRANT Admitting Clinician Unavailable Aries Grant MD Admitting Clinician + [phone] MICAELA PEÑA Admitting Clinician Unavailable Micaela Peña MD Admitting Clinician [phone] [email or web address] Admitting Clinician Unavaila SIERRA Kirkland Admitting Clinician Unavailable Payers Payer Name Policy Type Policy Number Effective Date Expirati on Date Source [facility] [id number] 2023 00:00:00 [facility] [id number] 2019 00:00:00 [facility] [id number] 2021 00:00:00 Problems Condition Name Condition Details Condition Category Status Onset Date Resolution Date Last Treatment Date Treating Clinician Comments Source Pain Pain Disease Active 8-07 00:00: 00 [facility] Unruptured cerebral aneurysm Unruptured cerebral aneurysm Disease Active 7-15 00:00: 00 [facility] Positive colorectal cancer screening using Cologuard test Positive colorectal cancer screening using Cologuard test Disease Active 3-18 00:00: 00 [facility] Colon cancer screening Colon cancer screening Disease Active 3-18 00:00: 00 [facility] Vasomotor symptoms due to menopause Vasomotor symptoms due to menopause Disease Active 01-14 00:00: 00 [facility] [id number] 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 Problem Active [facility] [id number] Nontraumat ic tear of left rotator cuff, unspecifie d tear extent Problem Active [facility] Allergies, Adverse Reactions, Alerts Allergy Name Allergy Type Status Severity Reaction(s) Onset Date Inactive Date Treating Clinician Comments Source Penicill in Propensi ty to adverse reaction s Active Itching 01-14 00:00: 00 [facility] PENICILL IN DRUG INGREDI Active ITCHING 01-14 00:00: 00 [facility] AMOXICIL JONNA DRUG INGREDI Active ITCHING 2014-09 00:00: 00 [facility] CODEINE DRUG INGREDI Active ITCHING 2014-09 00:00: 00 [facility] Amoxicil jonna Amoxicil jonna Active Unknown [facility] Codeine Codeine Active nausea and vomiting [facility] Family History Family Member Diagnosis Comments Start Date Stop Date Sourc e Natural father Unive [facility] Social History Social Habit Start Date Stop Date Quantity Comments Source Sex Assigned At [facility] History SDOH Alcohol Frequency [facility] History SDOH Alcohol Std Drinks [facility] History SDOH Alcohol Binge [facility] History of tobacco use Passive smoker [facility] Sexual orientation [facility] Alcoholic beverage intake 2024-08-28 00:00:00 2024-08-28 00:00:00 0 /d [facility] Tobacco use and exposure 2024-08-28 00:00:00 2024-08-28 00:00:00 Former smokeless tobacco user [facility] Alcohol intake 2023-11-27 00:00:00 2023-11-27 00:00:00 0 /d [facility] Tobacco Comment 2023-11-27 00:00:00 2023-11-27 00:00:00 1-2 cigs occasional [facility] History of Social function 2023-11-27 00:00:00 2023-11-27 00:00:00 [facility] Alcohol Comment 2022-01-14 00:00:00 2022-01-14 00:00:00 ocassional [facility] Smoking Status Start Date Stop Date Source Ex-smoker 2024-08-28 00:00:00 2024-08-28 00:00:[address] [facility] Smokes tobacco daily 2023-12-13 00:00:00 [facility] Medications Ordered Medication Name Filled Medication Name Start Date Stop Date Current Medication? Ordering Clinician Indication Dosage Frequency Signature (SIG) Comments Components Source neomycin-po lymyxin-dex amethasone (MAXITROL) 3.5 mg/g-10,000 unit/g-0.1 % ophthalmic ointment 09-19 16:00: 00 09-19 16:03 :46 No PRN, Starting on Sheri 09/19/24 at 1000, Until Sheri 09/19/24 at 1003, Routine, Intra-op [facility] gentamicin injection 09-19 15:59: 00 09-19 16:03 :46 No PRN, Starting on Sheri 09/19/24 at 0959, Until Sheri 09/19/24 at 1003, PHONG, Intra-op [facility] dexamethaso ne (DECADRON PHOSPHATE) 4 mg/mL injection 09-19 15:59: 00 09-19 16:03 :46 No PRN, Starting on Sheri 09/19/24 at 0959, Until Sheri 09/19/24 at 1003, Routine, Intra-op [facility] chondroitin sulf-sod hyaluronate (DUOVISC VISCO ELASTIC) intraocular injection 09-19 15:45: 00 09-19 16:03 :46 No PRN, Starting on Sheri 09/19/24 at 0945, Until Sheri 09/19/24 at 1003, Routine, Intra-op [facility] tetracaine (PONTOCAINE ) 0.5 % ophthalmic drops 09-19 15:39: 00 09-19 16:03 :46 No PRN, Starting on Sheri 09/19/24 at 0939, Until Sheri 09/19/24 at 1003, Routine, Intra-op [facility] eye block syringe 11 mL 09-19 15:38: 00 09-19 16:03 :46 No PRN, Starting on Sheri 09/19/24 at 0938, Until Sheri 09/19/24 at 1003, Intra-op [facility] EPINEPHrine (PF) 1:1,000 (1 mg/mL) (ADRENALIN (PF)) injection 09-19 15:20: 00 09-19 16:03 :46 No PRN, Starting on Sheri 09/19/24 at 0920, Until Sheri 09/19/24 at 1003, Routine, Intra-op [facility] balanced salt irrig soln comb1 (BSS PLUS) ophthalmic solution 09-19 15:19: 00 09-19 16:03 :46 No PRN, Starting on Sheri 09/19/24 at 0919, Until Sheri 09/19/24 at 1003, Routine, Intra-op [facility] water for irrigation irrigation solution 09-19 15:19: 00 09-19 16:03 :46 No PRN, Starting on Sheri 09/19/24 at 0919, Until Sheri 09/19/24 at 1003, Routine, [facility] cyclopent 1%-tropic 1%-phenyl 2.5%-ketor 0.5% (MYDRIATIC #5) ophthalmic solution syringe 0.5 mL 09-19 14:30: 00 09-19 14:33 :00 No .5mL 0.5 mL, Right Eye, ONCE, 1 dose, On Sheri 09/19/24 at 0830, Routine, DSU Pre-op [facility] ondansetron (ZOFRAN) 4 mg tablet 04-29 00:00: 00 05-30 04:59 :00 No [id number] 4mg Take 1 tablet by mouth every 8 (eight) hours as needed for Nausea and Vomiting (N/V) for up to 30 days. [facility] polyethylen e glycol 3350 (MIRALAX) 17 gram/dose powder 04-29 00:00: 00 05-30 04:59 :00 No [id number] 17g Take 17 g by mouth in the morning for 30 days. [facility] HYDROcodone -acetaminop hen 5-325 mg tablet 04-29 00:00: 00 05-07 04:59 :00 No [id number] 1{tbl} Take 1 tablet by mouth every 6 (six) hours as needed for Pain (scale 1-3) for up to 7 days. Indication s: acute pain [facility] ibuprofen 800 mg tablet 04-19 00:00: 00 Yes [id number] 800mg Take 1 tablet by mouth every 6 (six) hours as needed for Pain (scale 4-6) or Alternate with Clune for pain scale 1-3. [facility] gabapentin 300 mg capsule 04-19 00:00: 00 Yes [id number] 600mg Take 2 capsules by mouth at bedtime. [facility] docusate (COLACE) 100 mg capsule 04-19 00:00: 00 Yes [id number] 100mg Take 1 capsule by mouth in the morning. [facility] bisacodyL (DULCOLAX, BISACODYL,) 10 mg suppository 04-19 00:00: 00 Yes [id number] 10mg Insert 1 Suppositor y into rectum at bedtime as needed for Constipati on. [facility] ciprofloxac in HCl 500 mg tablet 04-19 00:00: 00 Yes [id number] 500mg Take 1 tablet by mouth every 12 (twelve) hours. [facility] magnesium citrate solution 04-19 00:00: 00 04-20 04:59 :00 No [id number] 300mL Take 300 mL by mouth once now for 1 dose. [facility] amLODIPine (NORVASC) tablet 10 mg 04-17 14:00: 00 Yes 10mg 10 mg, Oral, DAILY, First dose on Mon04/17/24 at 0900, Until Discontinu ed, Routine [facility] heparin (porcine) injection 5,000 Units 04-17 13:00: 00 Yes 5000U 5,000 Units, Subcutaneo us, Q12H, First dose on Mon04/17/24 at 0800, Until Discontinu ed, Routine [facility] levETIRAcet am (KEPPRA) tablet 500 mg 04-17 13:00: 00 Yes 500mg 500 mg, Oral, BID, First dose on Mon04/17/24 at 0800, Until Discontinu ed, Routine [facility] midazolam (VERSED) injection 2 mg 04-17 08:45: 00 04-17 08:45 :00 No 2mg 2 mg, IV Push, ONCE, 1 dose, On Mon04/17/24 at 0345, STAT [facility] HYDROcodone -acetaminop hen (NORCO) 10-325 mg tablet 1 tablet 04-17 08:41: 00 04-17 14:49 :00 No 1{tbl} 1 tablet, Oral, ONCE, 1 dose, On Mon04/17/24 at 0345, Routine [facility] diphenhydrA MINE (BENADRYL) tablet 25 mg 04-17 08:32: 38 Yes 25mg 25 mg, Oral, Q4HPRN, Starting on Mon04/17/24 at 0332, Until Discontinu ed, Routine, Itching [facility] morphine (2 mg/mL) injection 2 mg 04-17 08:32: 25 04-18 08:31 :25 No 2mg 2 mg, Slow IV Push, Q4HPRN, Starting on Mon04/17/24 at 0332, Until Sheri 04/18/24 at 033, Routine, Pain (scale 7-10) [facility] ondansetron (ZOFRAN (PF)) injection 4 mg 04-17 08:31: 45 Yes 4mg 4 mg, Slow IV Push, Q6HPRN, Starting on Mon04/17/24 at 330, Until Discontinu ed, Routine, Nausea and Vomiting (N/V) [facility] acetaminoph en (TYLENOL) tablet 650 mg 04-17 08:31: 45 Yes 650mg 650 mg, Oral, Q6HPRN, Starting on Mon04/17/24 at 330, Until Discontinu ed, Routine, Pain (scale 1-3) [facility] HYDROcodone -acetaminop hen (NORCO 5) tablet 1 tablet 04-17 08:31: 45 04-19 08:30 :45 No 1{tbl} 1 tablet, Oral, Q6HPRN, Starting on Mon04/17/24 at 033, Until Mon04/19/24 at 0330, Routine, Pain (scale 4-6) [facility] melatonin (MELATIN) tablet 3 mg 04-17 08:31: 42 Yes 3mg 3 mg, Oral, QHSPRN, Starting on Mon04/17/24 at 033, Until Discontinu ed, Routine, Insomnia [facility] hydralAZINE (APRESOLINE ) injection 10 mg 04-17 08:31: 42 Yes 10mg 10 mg, Slow IV Push, Q4HPRN, Starting on Mon04/17/24 at 033, Until Discontinu ed, Routine, DBP=>100; SBP=>160 [facility] iopamidol (ISOVUE 370-500 mL) injection 70 mL 04-17 08:30: 00 04-17 08:30 :00 No [id number] 70mL 70 mL, Intravenou s, ONCE, 1 dose, On Mon04/17/24 at 0330, Routine [facility] HYDROcodone -acetaminop hen (NORCO) 10-325 mg tablet 1 tablet 04-17 06:37: 00 04-17 06:49 :00 No 1{tbl} 1 tablet, Oral, ONCE, 1 dose, On Mon04/17/24 at 0145, Routine [facility] HYDROcodone -acetaminop hen 5-325 mg tablet 04-17 00:00: 00 04-25 04:59 :00 No [id number] 1{tbl} Take 1 tablet by mouth every 6 (six) hours as needed for Pain (scale 4-6) for up to 7 days. Indication s: acute pain [facility] HYDROcodone -acetaminop hen 5-325 mg tablet 04-05 00:00: 00 04-13 04:59 :00 No [id number] 1{tbl} Take 1 tablet by mouth every 4 (four) hours as needed for Pain (scale 1-3) for up to 7 days. Indication s: acute pain [facility] amLODIPine 5 mg tablet 03-31 00:00: 00 05-01 04:59 :00 No [id number] 5mg Take 1 tablet by mouth in the morning and 1 tablet in the evening. Do all this for 30 days. [facility] levETIRAcet am 500 mg tablet 03-31 00:00: 00 05-01 04:59 :00 No [id number] 500mg Take 1 tablet by mouth in the morning and 1 tablet in the evening. Do all this for 30 days. [facility] oxyCODONE 5 mg immediate release tablet 03-31 00:00: 00 04-08 04:59 :00 No [id number] 5mg Take 1 tablet by mouth every 6 (six) hours as needed for Pain (scale 4-6) for up to 7 days. Indication s: acute pain [facility] dextroamphe tamine-amph etamine (ADDERALL) 10 mg tablet 30 mg 03-30 18:00: 00 Yes 30mg 30 mg, Oral, Q24H ABX, First dose on Mon03/30/24 at 1300, Until Discontinu ed, Routine [facility] dextroamphe tamine-amph etamine (ADDERALL) 10 mg tablet 30 mg 03-30 13:00: 00 Yes 30mg 30 mg, Oral, Q24H ABX, First dose (after last modificati on) on Mon03/30/24 at 0800, Until Discontinu ed, Routine [facility] amLODIPine (NORVASC) tablet 5 mg 03-29 01:00: 00 Yes 5mg 5 mg, Oral, BID, First dose on Mon03/28/24 at 2000, Until Discontinu ed, Routine [facility] hydralAZINE (APRESOLINE ) injection 10 mg 03-28 05:43: 35 Yes 10mg 10 mg, Slow IV Push, Q4HPRN, Starting on Mon03/28/24 at 0043, Until Discontinu ed, STAT, Other, for SBP>160 [facility] levETIRAcet am (KEPPRA) tablet 500 mg 03-28 01:00: 00 Yes 500mg 500 mg, Oral, BID, First dose on Mon03/27/24 at 2000, Until Discontinu ed, Routine [facility] enoxaparin (LOVENOX) injection 40 mg 03-27 14:45: 00 Yes 40mg 40 mg, Subcutaneo us, Q24H, First dose on Mon03/27/24 at 0945, Until Discontinu ed, [facility]ine [facility] potassium chloride in water (KCL) 20 mEq/100 mL RTU IVPB 20 mEq 03-27 14:30: 00 03-27 19:58 :00 No 20meq 20 mEq, IV Piggyback, Q2H ES, 2 doses, First dose on Mon03/27/24 at 0930, Last dose on Mon03/27/24 at 1130, 100 mL [facility] sennosides- docusate sodium (SENOKOT-S) 8.6-50 mg per tablet 1 tablet 03-27 14:00: 00 Yes 1{tbl} 1 tablet, Oral, DAILY, First dose on Mon03/27/24 at 0900, Until Discontinu ed, Routine [facility] magnesium sulfate in water 2 gram/50 mL (4 %) infusion 2 g 03-26 15:00: 00 03-26 15:30 :00 No 2g 2 g, IV Piggyback, Administer over 60 Minutes, ONCE, 1 dose, On Mon03/26/24 at 1000, Routine [facility] oxyBUTYnin chloride (DITROPAN) tablet 5 mg 03-26 14:00: 00 Yes 5mg 5 mg, Oral, QAM, First dose on Mon03/26/24 at 0900, Until Discontinu ed [facility] potassium chloride in water (KCL) 20 mEq/100 mL RTU IVPB 20 mEq 03-26 13:30: 00 03-26 18:45 :00 No 20meq 20 mEq, IV Piggyback, Q2H ES, 2 doses, First dose on Mon03/26/24 at 0830, Last dose on Mon03/26/24 at 1030, 100 mL [facility] NaCl 0.9% (NS) IV infusion 1,000 mL 03-26 13:15: 00 03-27 13:33 :10 No 1000mL at 150 mL/hr, IV Infusion, CONTINUOUS , Starting on Mon03/26/24 at 0815, Until Mon03/27/24 at 0833, Routine [facility] niCARdipine (CARDENE I.V.) 40 mg in NaCL 200 mL (RTU) infusion 03-26 13:05: 02 Yes 2.5mg/h 2.5-15 mg/hr (12.5-75 mL/hr), IV Infusion, TITRATE, sbp<160mmh g, Starting on Mon03/26/24 at 0805, Initiate infusion at 2.5 mg/hr. Titrate by 2.5 mg/hr every 5 minutes to 15 minutes as needed to achieve and maintain goal blood pressure. Maximum dose = 15 mg/hr. If goal not maintained at maximum allowed dose, contact prescriber . [facility] levETIRAcet am (KEPPRA) in NACL (ISO-OS) 500 mg/100 mL RTU 03-26 01:00: 00 03-27 19:49 :04 No 500mg 500 mg, IV Piggyback, BID, First dose on Mon03/25/24 at 2000, Until Discontinu ed, Administer over 15 Minutes, 100 mL [facility] pantoprazol e (PROTONIX) injection 40 mg 03-26 01:00: 00 03-26 14:04 :23 No 40mg 40 mg, Slow IV Push, Q24H, First dose on Mon03/25/24 at 2000, Until Discontinu ed [facility] morpHINE (4 mg/mL) injection 4 mg 03-26 00:11: 11 Yes 4mg 4 mg, Slow IV Push, Q3HPRN, Starting on Mon03/25/24 at 1911, Until Discontinu ed, Routine, Pain (scale 7-10) [facility] acetaminoph en (TYLENOL) tablet 650 mg 03-25 23:00: 00 Yes 650mg 650 mg, Oral, Q6H, First dose on Mon03/25/24 at 1800, Until Discontinu ed, Routine [facility] iopamidol (ISOVUE 300-500 mL) injection 120 mL 03-25 22:15: 00 03-25 22:15 :00 No [id number] 120mL 120 mL, Intravenou s, ONCE, 1 dose, On Mon03/25/24 at 1715, Routine [facility] lidocaine 1% (PF) (XYLOCAINE) injection 03-25 20:53: 00 03-25 20:53 :03 No PRN, Starting on Mon03/25/24 at 1553, Until Mon03/25/24 at 1553, Routine, Intra-op [facility] niCARdipine (CARDENE I.V.) 40 mg in NaCL 200 mL (RTU) infusion 03-25 19:49: 25 03-26 13:05 :55 No 2.5mg/h 2.5-15 mg/hr (12.5-75 mL/hr), IV Infusion, TITRATE, sbp<140mmh g, Starting on Mon03/25/24 at 1449, Initiate infusion at 2.5 mg/hr. Titrate by 2.5 mg/hr every 5 minutes to 15 minutes as needed to achieve and maintain goal blood pressure. Maximum dose = 15 mg/hr. If goal not maintained at maximum allowed dose, contact prescriber . [facility] labetaloL (NORMODYNE) 5 mg/mL injection 10 mg 03-25 18:36: 43 03-26 04:39 :00 No 10mg 10 mg, Slow IV Push, Q15MIN PRN, 3 doses, Starting on Mon03/25/24 at 1336, Until Mon03/25/24 at 2339, Routine, Surgery/Pr ocedure, HR >100, SBP >140 [facility] labetaloL (NORMODYNE) 5 mg/mL injection 10 mg 03-25 18:11: 50 03-25 18:37 :09 No 10mg 10 mg, Slow IV Push, Q15MIN PRN, Starting on Mon03/25/24 at 1311, Until Mon03/25/24 at 1337, Routine, Surgery/Pr ocedure, HR >100, SBP >140 [facility] hydralAZINE (APRESOLINE ) injection 5 mg 03-25 18:11: 28 03-27 05:34 :00 No 5mg 5 mg, Slow IV Push, Q15MIN PRN, 3 doses, Starting on Mon03/25/24 at 1311, Until Mon03/27/24 at 0034, PHONG, DBP=>100; SBP=>160 [facility] FENTanyl PF (SUBLIMAZE (PF)) injection 25 mcg 03-25 18:03: 37 03-25 19:54 :00 No 25ug 25 mcg, Slow IV Push, Q5MIN PRN, 4 doses, Starting on Mon03/25/24 at 1303, Until Mon03/25/24 at 1454, Routine, Pain (scale 4-6), PACU [facility] NaCl 0.9% (NS) IV infusion 1,000 mL 03-25 17:15: 00 03-26 13:04 :38 No 1000mL at 100 mL/hr, IV Infusion, CONTINUOUS , Starting on Mon03/25/24 at 1215, Until Mon03/26/24 at 0804, Routine [facility] polyethylen e glycol 3350 powder 17 g 03-25 17:03: 27 Yes 17g 17 g, Oral, PRN - SEE INSTRUCTIO NS, Starting on Mon03/25/24 at 1203, Until Discontinu ed, Routine, Constipati on [facility] ondansetron (ZOFRAN (PF)) injection 4 mg 03-25 17:03: 27 Yes 4mg 4 mg, Slow IV Push, Q6HPRN, Starting on Mon03/25/24 at 1203, Until Discontinu ed, Routine, Nausea and Vomiting (N/V) [facility] oxyCODONE immediate release tablet 5 mg 03-25 17:03: 27 Yes 5mg 5 mg, Oral, Q4HPRN, Starting on Mon03/25/24 at 1203, Until Discontinu ed, Routine, Pain (scale 4-6), produce service team member approving Restricted medication : SNSNSURG [facility] vancomycin (VANCOCIN) 1 g in sodium chloride 0.9 % irrigation 03-25 16:49: 00 03-25 18:02 :36 No PRN, Starting on Mon03/25/24 at 1149, Until Mon03/25/24 at 1302, 1,000 mL, Intra-op [facility] papaverine injection 03-25 15:17: 00 03-25 18:02 :36 No PRN, Starting on Mon03/25/24 at 1017, Until Mon03/25/24 at 1302, Routine, Intra-op [facility] thrombin topical solution 03-25 14:24: 00 03-25 18:02 :36 No PRN, Starting on Mon03/25/24 at 0924, Until Mon03/25/24 at 1302, Routine, Intra-op [facility] lidocaine-e pinephrine (XYLOCAINE WITH EPINEPHRINE ) 1 %-1:100,000 injection 03-25 12:59: 00 03-25 18:02 :36 No PRN, Starting on Mon03/25/24 at 0759, Until Mon03/25/24 at 1302, Routine, Intra-op [facility] alendronate 70 mg tablet 03-05 00:00: 00 Yes 70mg Take 1 tablet by mouth weekly. Mondays [facility] famotidine 20 mg tablet 02-21 00:00: 00 Yes 20mg Take 1 tablet by mouth in the morning. [facility] meloxicam 7.5 mg tablet 02-21 00:00: 00 Yes 7.5mg Take 1 tablet by mouth every evening. [facility] iopamidol (ISOVUE 300-500 mL) injection 120 mL 01-25 14:30: 00 01-25 13:32 :00 No [id number] 120mL 120 mL, Intravenou s, ONCE, 1 dose, On Mon01/26/24 at 0930, Routine [facility] heparin 1,000 unit/mL injection 01-25 13:04: 00 01-25 13:04 :00 No Slow IV Push, PRN, Starting on Mon01/26/24 at 0804, Until Mon01/26/24 at 0804, Routine, Intra-op [facility] verapamiL (ISOPTIN) injection 01-25 13:04: 00 01-25 13:04 :00 No PRN, Starting on Mon01/26/24 at 0804, Until Mon01/26/24 at 0804, Routine, [facility] nitroglycer in 50 mg in D5W 250 mL infusion RTU 01-25 13:04: 00 01-25 13:04 :00 No CONTINUOUS PRN, Starting on Mon01/26/24 at 0804, Intra-op [facility] lidocaine 1% (PF) (XYLOCAINE) injection 01-25 13:01: 43 01-25 13:01 :43 No PRN, Starting on Mon01/26/24 at 0801, Until Mon01/26/24 at 0801, Routine, Intra-op [facility] FENTanyl PF (SUBLIMAZE (PF)) injection 01-25 13:00: 00 01-25 13:00 :00 No Slow IV Push, PRN, Starting on Mon01/26/24 at 0800, Until Mon01/26/24 at 0800, Routine, Intra-op [facility] ALBUTEROL SULFATE (VENTOLIN INHALE) 01-25 08:35: 05 Yes Inhale as needed. [facility] dextroamphe tamine-amph etamine (ADDERALL) 30 mg tablet 01-25 08:35: 05 Yes 30mg Take 1 tablet by mouth in the morning and 1 tablet in the evening. [facility] LORazepam (ATIVAN) 1 mg tablet 01-25 08:35: 05 Yes 1mg Take 1 tablet by mouth as needed for Anxiety or Agitation. [facility] atorvastati n 10 mg tablet 01-25 08:35: 05 Yes 10mg Take 1 tablet by mouth at bedtime. [facility] ferrous sulfate (IRON ORAL) 01-25 08:35: 05 09-19 00:00 :00 No 50mg Take by mouth. [facility] dextroamphe tamine-amph etamine (ADDERALL) 30 mg tablet -03 12:17: 31 Yes 30mg Take 1 tablet by mouth in the morning and 1 tablet in the evening. [facility] ALBUTEROL SULFATE (VENTOLIN INHALE) 12-12 12:17: 31 Yes Inhale as needed. [facility] LORazepam (ATIVAN) 1 mg tablet 12-12 12:17: 31 Yes 1mg Take 1 tablet by mouth as needed for Anxiety or Agitation. [facility] cholecalcif joya, vitamin D3, (VITAMIN D3 ORAL) 12-12 12:17: 31 Yes 3000ug Take 3,000 mcg by mouth in the morning. [facility] atorvastati n 10 mg tablet 12-12 12:17: 31 Yes 10mg Take 1 tablet by mouth at bedtime. [facility] Kenalog (Triamcinol one) Kenalog (Triamcinol one) 12-03 00:00: 00 No 1mL [facility] BUPivacaine HCl BUPivacaine HCl 12-03 00:00: 00 No 5mL [facility] LORazepam (ATIVAN) 1 mg tablet 11-26 09:30: 37 Yes 1mg Take 1 tablet by mouth as needed for Anxiety or Agitation. [facility] peg-electro lyte soln (GOLYTELY) 236-22.74-6 .74 -5.86 gram solution 11-26 00:00: 00 11-27 04:59 :00 No 4000mL Take 4,000 mL by mouth once now for 1 dose. [facility] sodium,pota ssium,mag sulfates 17.5-3.13-1 .6 gram 11-26 00:00: 00 11-27 04:59 :00 No 177mL Take 177 mL by mouth once now for 1 dose. [facility] oxybutynin XL 5 mg 24 hr tablet 11-21 00:00: 00 Yes 5mg Take 1 tablet by mouth every morning. prn [facility] Kenalog (Triamcinol one) Kenalog (Triamcinol one) 11-19 00:00: 00 No 1mL [facility] BUPivacaine HCl BUPivacaine HCl 2024-0 3-11 00:00: 00 No 4mL [facility] Kenalog (Triamcinol one) Kenalog (Triamcinol one) 3-11 00:00: 00 No 1mL [facility] BUPivacaine HCl BUPivacaine HCl 3-11 00:00: 00 No 4mL [facility] famotidine 20 mg tablet 2022-09 00:00: 00 Yes 20mg Take 1 tablet by mouth at bedtime. [facility] meloxicam 7.5 mg tablet 2022-09 00:00: 00 Yes 7.5mg Take 1 tablet by mouth every evening. [facility] fluticasone propion-maksim meteroL 250-50 mcg/dose inhalation disk 2022-09 00:00: 00 Yes Inhale every 12 (twelve) hours. [facility] omeprazole 40 mg capsule 2022-09 00:00: 00 Yes 40mg Take 1 capsule by mouth in the morning. [facility] Kenalog (Triamcinol one) Kenalog (Triamcinol one) 05-12 00:00: 00 No 40mg [facility] Naropin (Ropivacain e HCl) Naropin (Ropivacain e HCl) 05-12 00:00: 00 No 5mg [facility] Naropin (Ropivacain e HCl) Naropin (Ropivacain e HCl) - 00:00: 00 No 5mg [facility] Kenalog (Triamcinol one) Kenalog (Triamcinol one) 9- 00:00: 00 No 40mg [facility] Kenalog (Triamcinol one) Kenalog (Triamcinol one) - 00:00: 00 No 40mg [facility] Naropin (Ropivacain e HCl) Naropin (Ropivacain e HCl) - 00:00: 00 No 5mg [facility] Bupivicaine Needham Bupivicaine Needham 04-19 00:00: 00 No 2.5mg [facility] Kenalog (Triamcinol one) Kenalog (Triamcinol one) 04-19 00:00: 00 No 40mg [facility] Kenalog (Triamcinol one) Kenalog (Triamcinol one) 04-19 00:00: 00 No 40mg [facility] Bupivicaine [place]ham Bupivicaine [place] 04-19 00:00: 00 No 2.5mg [facility] Kenalog (Triamcinol one) Kenalog (Triamcinol one) 04-19 00:00: 00 No 40mg [facility] Bupivicaine [place] Bupivicaine [place] 04-19 00:00: 00 No 2.5mg [facility] dextroamphe tamine-amph etamine (ADDERALL) 30 mg tablet 01-14 14:14: 16 Yes 30mg Take 1 tablet by mouth in the morning and 1 tablet in the evening. [facility] ALBUTEROL SULFATE (VENTOLIN INHALE) 01-14 14:14: 16 Yes Inhale as needed. [facility] LORazepam (ATIVAN) 1 mg tablet 01-14 14:14: 16 Yes 1mg Take 1 tablet by mouth as needed for Anxiety or Agitation. [facility] ferrous sulfate (IRON ORAL) 01-14 14:14: 16 Yes 50mg Take by mouth. [facility] atorvastati n 10 mg tablet 01-14 14:14: 16 Yes 10mg Take 1 tablet by mouth at bedtime. [facility] conjugated estrogens (PREMARIN) 0.625 mg tablet 01-14 00:00: 00 Yes [id number] .625mg Take 1 tablet by mouth daily. [facility] Bupivicaine [place] Bupivicaine [place] 0 316 00:00: 00 No 2.5mg [facility] Kenalog (Triamcinol one) Kenalog (Triamcinol one) 0 3-16 00:00: 00 No 40mg [facility] Bupivicaine [place]ham Bupivicaine [place] 0 316 00:00: 00 No 2.5mg [facility] Kenalog (Triamcinol one) Kenalog (Triamcinol one) 0 3-16 00:00: 00 No 40mg [facility] Bupivicaine [place] Bupivicaine [place] 0 16 00:00: 00 No 2.5mg [facility] Kenalog (Triamcinol one) Kenalog (Triamcinol one) 0 16 00:00: 00 No 40mg [facility] Bupivicaine [place]ham Bupivicaine [place] 0 - 00:00: 00 No 2.5mg [facility] Kenalog (Triamcinol one) Kenalog (Triamcinol one) 0 - 00:00: 00 No 40mg [facility] Kenalog (Triamcinol one) Kenalog (Triamcinol one) 0 - 00:00: 00 No 40mg [facility] Bupivicaine [place]ham Bupivicaine [place] 0 - 00:00: 00 No 2.5mg [facility] Kenalog (Triamcinol one) Kenalog (Triamcinol one) 0 - 00:00: 00 No 40mg [facility] Bupivicaine [place]ham Bupivicaine [place] 0 10-05 00:00: 00 No 2.5mg [facility] Bupivicaine [place] Bupivicaine [place] 0 9- 00:00: 00 No 5mL [facility] Kenalog (Triamcinol one) Kenalog (Triamcinol one) 2019-0 9- 00:00: 00 No 40mg [facility] Kenalog (Triamcinol one) Kenalog (Triamcinol one) 2019-0 9- 00:00: 00 No 40mg [facility] Bupivicaine Needham Bupivicaine Needham 2019-0 9- 00:00: 00 No 5mL [facility] Kenalog (Triamcinol one) Kenalog (Triamcinol one) 2019-0 9- 00:00: 00 No 40mg [facility] Bupivicaine Needham Bupivicaine Needham 2019-0 9 00:00: 00 No 5mL [facility] Bupivicaine [place]ham Bupivicaine Needham 2019-0 6- 00:00: 00 No 5mL [facility] Kenalog (Triamcinol one) Kenalog (Triamcinol one) 2019-0 6- 00:00: 00 No 40mg [facility] Bupivicaine Needham Bupivicaine Needham 2019-0 6- 00:00: 00 No 5mL [facility] Kenalog (Triamcinol one) Kenalog (Triamcinol one) 2019-0 6- 00:00: 00 No 40mg [facility] Bupivicaine Needham Bupivicaine Needham 2019-0 6- 00:00: 00 No 5mL [facility] Kenalog (Triamcinol one) Kenalog (Triamcinol one) 2019-0 6-09 00:00: 00 No 40mg [facility] Albuterol Sulfate HFA Albuterol Sulfate HFA No Albuterol Sulfate HFA Amoxicillin -Pot Clavulanate Amoxicillin -Pot Clavulanate No Amoxicilli n-Pot Clavulanat e LORazepam LORazepam No LORazepam Immunizations Ordered Immunization Name Filled Immunization Name Date Status Comments Source SARS-COV-2 COVID-19 PFIZER VACCINE 2021-05-19 00:00:00 Completed [facility] SARS-COV-2 COVID-19 PFIZER VACCINE 2021-05-19 00:00:00 Completed SARS-COV-2 COVID-19 PFIZER VACCINE 2021-04-26 00:00:00 Completed [facility] SARS-COV-2 COVID-19 PFIZER VACCINE 2021-04-26 00:00:00 Completed [facility] SARS-COV-2 COVID-19 PFIZER VACCINE Unknown Completed [facility] SARS-COV-2 COVID-19 PFIZER VACCINE Unknown Completed [facility] SARS-COV-2 COVID-19 PFIZER VACCINE Unknown Completed [facility] SARS-COV-2 COVID-19 PFIZER VACCINE Unknown Completed [facility] SARS-COV-2 COVID-19 PFIZER VACCINE Unknown Completed [facility] SARS-COV-2 COVID-19 PFIZER VACCINE Unknown Completed [facility] SARS-COV-2 COVID-19 PFIZER VACCINE Unknown Completed [facility] SARS-COV-2 COVID-19 PFIZER VACCINE Unknown Completed [facility] SARS-COV-2 COVID-19 PFIZER VACCINE Unknown Completed [facility] SARS-COV-2 COVID-19 PFIZER VACCINE Unknown Completed [facility] SARS-COV-2 COVID-19 PFIZER VACCINE Unknown Completed [facility] SARS-COV-2 COVID-19 PFIZER VACCINE Unknown Completed [facility] SARS-COV-2 COVID-19 PFIZER VACCINE Unknown Completed [facility] SARS-COV-2 COVID-19 PFIZER VACCINE Unknown Completed [facility] SARS-COV-2 COVID-19 PFIZER VACCINE Unknown Completed [facility] SARS-COV-2 COVID-19 PFIZER VACCINE Unknown Completed [facility] SARS-COV-2 COVID-19 PFIZER VACCINE Unknown Completed [facility] SARS-COV-2 COVID-19 PFIZER VACCINE Unknown Completed [facility] SARS-COV-2 COVID-19 PFIZER VACCINE Unknown Completed [facility] SARS-COV-2 COVID-19 PFIZER VACCINE Unknown Completed [facility] SARS-COV-2 COVID-19 PFIZER VACCINE Unknown Completed [facility] SARS-COV-2 COVID-19 PFIZER VACCINE Unknown Completed [facility] SARS-COV-2 COVID-19 PFIZER VACCINE Unknown Completed [facility] SARS-COV-2 COVID-19 PFIZER VACCINE Unknown Completed [facility] SARS-COV-2 COVID-19 PFIZER VACCINE Unknown Completed [facility] SARS-COV-2 COVID-19 PFIZER VACCINE Unknown Completed [facility] SARS-COV-2 COVID-19 PFIZER VACCINE Unknown Completed [facility] SARS-COV-2 COVID-19 PFIZER VACCINE Unknown Completed [facility] SARS-COV-2 COVID-19 PFIZER VACCINE Unknown Completed [facility] SARS-COV-2 COVID-19 PFIZER VACCINE Unknown Completed [facility] SARS-COV-2 COVID-19 PFIZER VACCINE Unknown Completed [facility] SARS-COV-2 COVID-19 PFIZER VACCINE Unknown Completed [facility] SARS-COV-2 COVID-19 PFIZER VACCINE Unknown Completed [facility] SARS-COV-2 COVID-19 PFIZER VACCINE Unknown Completed [facility] SARS-COV-2 COVID-19 PFIZER VACCINE Unknown Completed [facility] SARS-COV-2 COVID-19 PFIZER VACCINE Unknown Completed [facility] SARS-COV-2 COVID-19 PFIZER VACCINE Unknown Completed [facility] SARS-COV-2 COVID-19 PFIZER VACCINE Unknown Completed [facility] SARS-COV-2 COVID-19 PFIZER VACCINE Unknown Completed [facility] SARS-COV-2 COVID-19 PFIZER VACCINE Unknown Completed [facility] SARS-COV-2 COVID-19 PFIZER VACCINE Unknown Completed [facility] SARS-COV-2 COVID-19 PFIZER VACCINE Unknown Completed [facility] Vital Signs Vital Name Observation Time Observation Value Comments S ource Systolic blood pressure 2024-09-19 16:19:00 137 mm[Hg] [facility] Diastolic blood pressure 2024-09-19 16:19:00 75 mm[Hg] [facility] Heart rate 2024-09-19 16:19:00 50 /min [facility] Respiratory rate 2024-09-19 16:19:00 12 /min [facility] Oxygen saturation in Arterial blood by Pulse oximetry 2024-09-19 16:19:00 98 /min [facility] Body temperature 2024-09-19 16:04:00 36.17 Lotus [facility] Body weight 2024-08-28 16:00:00 53.524 kg [facility] BMI 2024-08-28 16:00:00 20.90 kg/m2 [facility] Systolic blood pressure 2024-09-19 16:19:00 137 mm[Hg] [facility] Diastolic blood pressure 2024-09-19 16:19:00 75 mm[Hg] [facility] Heart rate 2024-09-19 16:19:00 50 /min [facility] Respiratory rate 2024-09-19 16:19:00 12 /min [facility] Oxygen saturation in Arterial blood by Pulse oximetry 2024-09-19 16:19:00 98 /min [facility] Body temperature 2024-09-19 16:04:00 36.17 Lotus [facility] Body weight 2024-08-28 16:00:00 53.524 kg [facility] BMI 2024-08-28 16:00:00 20.90 kg/m2 [facility] Systolic blood pressure 2024-05-20 18:10:00 137 mm[Hg] [facility] Diastolic blood pressure 2024-05-20 18:10:00 73 mm[Hg] [facility] Heart rate 2024-05-20 18:10:00 82 /min [facility] Body height 2024-05-20 18:10:00 160 cm [facility] Body weight 2024-05-20 18:10:00 54.069 kg [facility] BMI 2024-05-20 18:10:00 21.12 kg/m2 [facility] Systolic blood pressure 2024-04-19 17:16:00 139 mm[Hg] [facility] Diastolic blood pressure 2024-04-19 17:16:00 86 mm[Hg] [facility] Heart rate 2024-04-19 17:16:00 76 /min [facility] Body height 2024-04-19 17:16:00 160 cm [facility] Body weight 2024-04-19 17:16:00 52.073 kg [facility] BMI 2024-04-19 17:16:00 20.34 kg/m2 [facility] Systolic blood pressure 2024-04-17 16:50:00 146 mm[Hg] [facility] Diastolic blood pressure 2024-04-17 16:50:00 80 mm[Hg] [facility] Heart rate 2024-04-17 16:50:00 65 /min [facility] Body temperature 2024-04-17 16:50:00 36.89 Lotus [facility] Respiratory rate 2024-04-17 16:50:00 16 /min [facility] Oxygen saturation in Arterial blood by Pulse oximetry 2024-04-17 16:50:00 100 /min [facility] Body height 2024-04-17 06:31:00 160 cm [facility] Body weight 2024-04-17 06:31:00 54.432 kg [facility] BMI 2024-04-17 06:31:00 21.26 kg/m2 [facility] Systolic blood pressure 2024-04-08 19:50:00 152 mm[Hg] [facility] Diastolic blood pressure 2024-04-08 19:50:00 85 mm[Hg] [facility] Heart rate 2024-04-08 19:50:00 73 /min [facility] Body height 2024-04-08 19:49:00 160 cm [facility] Body weight 2024-04-08 19:49:00 54.432 kg [facility] BMI 2024-04-08 19:49:00 21.26 kg/m2 [facility] Systolic blood pressure 2024-03-31 12:54:00 117 mm[Hg] [facility] Diastolic blood pressure 2024-03-31 12:54:00 73 mm[Hg] [facility] Heart rate 2024-03-31 12:54:00 64 /min [facility] Body temperature 2024-03-31 12:54:00 37 Lotus [facility] Respiratory rate 2024-03-31 12:54:00 18 /min [facility] Oxygen saturation in Arterial blood by Pulse oximetry 2024-03-31 12:54:00 99 /min [facility] Body height 2024-03-25 11:30:00 160 cm [facility] Body weight 2024-03-25 11:30:00 55.7 kg [facility] BMI 2024-03-25 11:30:00 21.75 kg/m2 [facility] Systolic blood pressure 2024-03-25 20:05:00 122 mm[Hg] [facility] Diastolic blood pressure 2024-03-25 20:05:00 55 mm[Hg] [facility] Heart rate 2024-03-25 20:05:00 90 /min [facility] Respiratory rate 2024-03-25 20:05:00 15 /min [facility] Oxygen saturation in Arterial blood by Pulse oximetry 2024-03-25 20:05:00 100 /min [facility] Body temperature 2024-03-25 18:00:00 37.11 Lotus [facility] Body height 2024-03-25 11:30:00 160 cm [facility] Body weight 2024-03-25 11:30:00 55.7 kg [facility] BMI 2024-03-25 11:30:00 21.75 kg/m2 [facility] Systolic blood pressure 2024-01-26 15:45:00 149 mm[Hg] [facility] Diastolic blood pressure 2024-01-26 15:45:00 75 mm[Hg] [facility] Heart rate 2024-01-26 15:45:00 57 /min [facility] Respiratory rate 2024-01-26 15:45:00 16 /min [facility] Oxygen saturation in Arterial blood by Pulse oximetry 2024-01-26 15:45:00 99 /min [facility] Body height 2024-01-26 12:40:00 160 cm [facility] Body weight 2024-01-26 12:40:00 52.164 kg [facility] BMI 2024-01-26 12:40:00 20.37 kg/m2 [facility] Systolic blood pressure 2024-01-22 18:16:00 176 mm[Hg] [facility] Diastolic blood pressure 2024-01-22 18:16:00 82 mm[Hg] [facility] Heart rate 2024-01-22 18:16:00 66 /min [facility] Body height 2024-01-22 18:15:00 160 cm [facility] Body weight 2024-01-22 18:15:00 52.164 kg [facility] BMI 2024-01-22 18:15:00 20.37 kg/m2 [facility] height 2023-12-04 14:30:00 62.5 [in_i] [facility] weight 2023-12-04 14:30:00 114 [lb_av] [facility] temperature 2023-12-04 14:30:00 98.0 [degF] Com mon [facility] bmi 2023-12-04 14:30:00 20.52 kg/m2 [facility] blood pressure systolic 2023-12-04 14:30:00 112 mm[Hg] [facility] blood pressure diastolic 2023-12-04 14:30:00 74 mm[Hg] [facility] Systolic blood pressure 2023-11-27 14:33:00 137 mm[Hg] [facility] Diastolic blood pressure 2023-11-27 14:33:00 72 mm[Hg] [facility] Heart rate 2023-11-27 14:33:00 53 /min [facility] Body temperature 2023-11-27 14:33:00 36.72 Lotus [facility] Respiratory rate 2023-11-27 14:33:00 12 /min [facility] Body height 2023-11-27 14:33:00 160 cm [facility] Body weight 2023-11-27 14:33:00 53.706 kg [facility] BMI 2023-11-27 14:33:00 20.97 kg/m2 [facility] Oxygen saturation in Arterial blood by Pulse oximetry 2023-11-27 14:33:00 96 /min [facility] height 2023-11-20 15:00:00 62.5 [in_i] Comm on [facility] weight 2023-11-20 15:00:00 114 [lb_av] [facility] temperature 2023-11-20 15:00:00 98.4 [degF] Com [facility] bmi 2023-11-20 15:00:00 20.52 kg/m2 [facility] blood pressure systolic 2023-11-20 15:00:00 118 mm[Hg] [facility] blood pressure diastolic 2023-11-20 15:00:00 72 mm[Hg] [facility] height 2022-05-12 14:00:00 62.5 [in_i] [facility] weight 2022-05-12 14:00:00 114 [lb_av] [facility] temperature 2022-05-12 14:00:00 97.2 [degF] Com [facility] bmi 2022-05-12 14:00:00 20.52 kg/m2 [facility] blood pressure systolic 2022-05-12 14:00:00 126 mm[Hg] [facility] blood pressure diastolic 2022-05-12 14:00:00 84 mm[Hg] [facility] height 2022-04-19 15:30:00 62.5 [in_i] [facility] weight 2022-04-19 15:30:00 114 [lb_av] [facility] on [facility] temperature 2022-04-19 15:30:00 98.0 [degF] Com [facility] bmi 2022-04-19 15:30:00 20.52 kg/m2 [facility] blood pressure systolic 2022-04-19 15:30:00 114 mm[Hg] [facility] blood pressure diastolic 2022-04-19 15:30:00 72 mm[Hg] [facility] Systolic blood pressure 2022-01-14 19:11:00 150 mm[Hg] [facility] Diastolic blood pressure 2022-01-14 19:11:00 86 mm[Hg] [facility] Heart rate 2022-01-14 19:11:00 86 /min [facility] Body temperature 2022-01-14 19:11:00 36.72 Lotus [facility] Body height 2022-01-14 19:11:00 160 cm [facility] Body weight 2022-01-14 19:11:00 50.077 kg [facility] BMI 2022-01-14 19:11:00 19.56 kg/m2 [facility] Systolic blood pressure 2024-03-27 15:30:00 141 mm[Hg] [facility] Diastolic blood pressure 2024-03-27 15:30:00 71 mm[Hg] [facility] Heart rate 2024-03-27 15:30:00 58 /min [facility] Body temperature 2024-03-27 15:30:00 37.78 Lotus [facility] Respiratory rate 2024-03-27 15:30:00 10 /min [facility] Oxygen saturation in Arterial blood by Pulse oximetry 2024-03-27 15:30:00 96 /min [facility] Body height 2024-03-25 11:30:00 160 cm [facility] Body weight 2024-03-25 11:30:00 55.7 kg [facility] BMI 2024-03-25 11:30:00 21.75 kg/m2 [facility] Procedures Procedure Date / Time Performed Performing Clinician Source [id number] - [place] XCAPSL CTRC RMVL INSJ IO LENS PROSTH W/O ECP 2024-09-19 15:29:00 Paulo Hendricks [facility] XR CHEST 1 VW 2024-04-17 15:24:00 Debo Taylor [facility] CT HEAD W CONTRAST 2024-04-17 07:40:17 [facility] 2024-04-17 07:40:17 [facility] COMP. METABOLIC PANEL (47706) 2024-04-17 06:48:00 Tanner Broussard [facility] CBC WITH DIFF 2024-04-17 06:48:00 Tanner Broussard [facility] CBC WITH DIFF 2024-03-30 08:59:00 Dajuan madrigal [facility] CBC WITH DIFF 2024-03-29 16:30:00 Dajuan madrigal [facility] MAGNESIUM 2024-03-28 09:32:00 Rizwan Branch [facility] BASIC METABOLIC PANEL (NA, K, CL, CO2, GLUCOSE, BUN, CREATININE, CA) 2024-03-28 09:32:00 Debo Taylor [facility] CBC WITH DIFF 2024-03-28 09:32:00 Debo Taylor [facility] XR CHEST 1 2024-03-27 13:49:[address] [facility] EKG-12 LEAD 2024-03-27 12:42:28 Rizwan Branch [facility] BLOOD CULTURE SCREEN 2024-03-27 12:27:00 Edward Hdez [facility] BLOOD CULTURE SCREEN 2024-03-27 12:27:00 Edward Hdez [facility] URINALYSIS 2024-03-27 12:16:00 Edward Hdez [facility] URINALYSIS 2024-03-27 12:16:00 Edward Hdez [facility] URINE CULTURE 2024-03-27 12:16:[address] [facility] BASIC METABOLIC PANEL (NA, K, CL, CO2, GLUCOSE, BUN, CREATININE, CA) 2024-03-27 08:12[facility]00 [facility] 2024-03-27 08:12:00 Jethro Taylora [facility] MAGNESIUM 2024-03-27 08:12:00 Gibran [facility] PHOSPHORUS 2024-03-27 08:12:00 Gibran [facility] PHOSPHORUS 2024-03-27 08:12:00 Gibran [facility] MAGNESIUM 2024-03-27 08:12:00 [place] [facility] [facility] BASIC METABOLIC PANEL (NA, K, CL, CO2, GLUCOSE, BUN, CREATININE, CA) 2024-03-27 08:12:00 [facility] WITH DIFF 2024-03-27 08:12:00 Debo Taylor [facility] MAGNESIUM 2024-03-26 09:47:00 [facility] PANEL (NA, K, CL, CO2, GLUCOSE, BUN, CREATININE, CA) 2024-03-26 09:47:00 [facility]FF 2024-03-26 09:47:00 [facility] DIFF 2024-03-26 09:47:[address] [facility] BASIC METABOLIC PANEL (NA, K, CL, CO2, GLUCOSE, BUN, CREATININE, CA) 2024-03-26 09:47:00 [facility] 2024-03-26 09:47:00 Margarito Matthew [facility] MAGNESIUM 2024-03-26 09:47:00 [facility] BASIC MET[facility]OLIC PANEL (NA, K, CL, CO2, GLUCOSE, BUN, CREATININE, CA) 2024-03-26 09:47:00 Edward Hdez [facility] CBC WITH DIFF 2024-03-26 09:47:[address] [facility] CT HEAD WO CONTRAST 2024-03-26 09:15:00 Edward Hdez [facility] CT HEAD WO CONTRAST 2024-03-26 09:15:00 Edward Hdez [facility] CT HEAD WO CONTRAST 2024-03-26 09:15:00 Edward Hdez [facility] IR ANGIOGRAM CEREBRAL 2024-03-25 21:20:09 Milvia Hdez [facility] IR ANGIOGRAM CEREBRAL 2024-03-25 21:20:09 Milvia Hdez [facility] IR ANGIOGRAM CEREBRAL 2024-03-25 21:20:09 Milvia Hdez [facility] 2024-03-25 13:45:00 Ric Schneider [facility] ACUTE CARE ARTERIAL 2024-03-25 13:45:00 Ric Schneider [facility] ACUTE CARE ARTERIAL 2024-03-25 13:45:00 Ric Schneider [facility] ARTERIAL LINE 2024-03-25 12:40:[address] [facility] INTUBATION 2024-03-25 12:20:00 Gopi Houser [facility] ABORH CONFIRMATION (LAB ONLY) 2024-03-25 12:02:00 Ric Schneider [facility] ABORH CONFIRMATION (LAB ONLY) 2024-03-25 12:02:00 Ric Schneider [facility] ABORH CONFIRMATION (LAB ONLY) 2024-03-25 12:02:00 Ric Schneider [facility] [id number] - [place] COMPLX INTRACRANIAL ARYSM CAROTID CIRCULATION 2024-03-25 11:50:00 Ric Schneider [facility] [address] - [place] MICROSURG TQS REQ USE OPERATING MICROSCOPE 2024-03-25 11:50:00 Ric Schneider [facility] [id number] - [place] INDOCYANINE-GREEN ANGRPH W/MULTIFRAME I&R UNI/BI 2024-03-25 11:50:00 Ric Schneider [facility] [id number] - [place] COMPLX INTRACRANIAL ARYSM CAROTID CIRCULATION 2024-03-25 11:50:00 Ric Schneider [facility] [address] - [place] MICROSURG TQS REQ USE OPERATING MICROSCOPE 2024-03-25 11:50:00 Ric Schneider [facility] [address] - [place] INDOCYANINE-GREEN ANGRPH W/MULTIFRAME I&R UNI/BI 2024-03-25 11:50:00 Ric Schneider [facility] [address] - [place] COMPLX INTRACRANIAL ARYSM CAROTID CIRCULATION 2024-03-25 11:50:00 Ric Schneider [facility] [address] - [place] MICROSURG TQS REQ USE OPERATING MICROSCOPE 2024-03-25 11:50:00 Ric Schneider [facility] [address] - [place] INDOCYANINE-GREEN ANGRPH W/MULTIFRAME I&R UNI/BI 2024-03-25 11:50:00 Ric Schneider [facility] BASIC METABOLIC PANEL (NA, K, CL, CO2, GLUCOSE, BUN, CREATININE, CA) 2024-03-25 11:27:00 [facility] 2024-03-25 11:27:00 Dimitri Rivas [facility] PROTHROMBIN TIME / INR 2024-03-25 11:27:00 Cirilo Rivas [facility] ACTIVATED PARTIAL THRMPLAS MARTIN 2024-03-25 11:27:00 [facility] 2024-03-25 11:27:[address] [facility] ACTIVATED PARTIAL THRMPLAS MARTIN 2024-03-25 11:27:00 Rob [facility] CBC WITH DIFF 2024-03-25 11:27:00 Dimitri Rivas [facility] BASIC METABOLIC PANEL (NA, K, CL, CO2, GLUCOSE, BUN, CREATININE, CA) 2024-03-25 11:27:00 Dimitri Rivas [facility] PROTHROMBIN TIME / INR 2024-03-25 11:27:00 Cirilo Rivas [facility] HB ABO GROUPING 2024-03-25 11:27:[address] [facility] BASIC METABOLIC PANEL (NA, K, CL, CO2, GLUCOSE, BUN, CREATININE, CA) 2024-03-25 11:27:00 Dimitri Rivas [facility] CBC WITH DIFF 2024-03-25 11:27:00 Dimitri Rivas [facility] PROTHROMBIN TIME / INR 2024-03-25 11:27:00 Cirilo Rivas [facility] ACTIVATED PARTIAL THRMPLAS MARTIN 2024-03-25 11:27:00 Dimitri Rivas [facility] HB ABO GROUPING 2024-03-25 11:27:[address] [facility] IR ANGIOGRAM CEREBRAL 2024-01-26 13:24:52 Ric Schneider [facility] IR ANGIOGRAM CEREBRAL 2024-01-26 13:24:52 Ric Schneider [facility] BASIC METABOLIC PANEL (NA, K, CL, CO2, GLUCOSE, BUN, CREATININE, CA) 2024-01-26 12:38:00 Ric Schneider [facility] CBC WITH DIFF 2024-01-26 12:38:[address] [facility] PROTHROMBIN TIME / INR 2024-01-26 12:38:00 Ric Schneider [facility] CBC WITH DIFF 2024-01-26 12:38:[address] [facility] PROTHROMBIN TIME / INR 2024-01-26 12:38:00 Ric Schneider [facility] BASIC METABOLIC PANEL (NA, K, CL, CO2, GLUCOSE, BUN, CREATININE, CA) 2024-01-26 12:38:00 Ric Schneider [facility] REFERRAL- REQUEST/RESPONSE 2024-01-09 19:09:26 Doctor Unassigned, [place] [facility] REFERRAL- REQUEST/RESPONSE 2024-01-09 19:09:26 Doctor Unassigned, [place] [facility] CONSENT/REFUSAL FOR DIAGNOSIS AND TREATMENT 2023-11-27 14:20:16 Doctor Unassigned, [place] [facility] REFERRAL- REQUEST/RESPONSE 2023-10-23 06:01:00 Doctor Unassigned, [place] [facility] Encounters Start Date/Time End Date/Time Encounter Type Admission Type Attending [facility] Care Facility Care Department Encounter ID Source 2024-01-30 10:09:20 Inpatient R RIC [facility] SNS [id number] [facility] 2024-01-16 14:55:01 Outpatient R [facility]WELL [facility] DEVIN [id number] [facility] 2022-04-19 15:30:01 Outpatient BoyerRandy [facility] [id number] [facility] 2021-10-06 12:46:36 Outpatient Mily Fuentes [facility] [id number] [facility] 2021-10-06 12:31:48 Outpatient Mily Fuentes [facility] [id number] [facility] 2021-10-06 12:22:24 Outpatient Mily Fuentes [facility] [id number] [facility] 2021-10-06 11:48:33 Outpatient BoyerRandy [facility] [id number] [facility] 2024-10-07 00:00:00 2024-10-07 00:00:00 Outpatient R RADIOLOGY [facility] [id number] [facility] 2024-10-03 00:00:00 2024-10-03 00:00:00 Outpatient R RADIOLOGY [facility] [id number] [facility] 2024-09-19 08:23:00 2024-09-19 10:28:00 Outpatient R [facility] OPH [id number] [facility] 2024-09-19 08:23:00 2024-09-19 10:28:00 Hospital Encounter Paulo Hendricks [facility] 1.2.840.114 350.1.13.10 4.2.7.2.686 [id number] [facility] 2024-09-19 09:45:00 2024-09-19 10:21:00 Surgery Paulo Hendricks [facility] 1.2.840.114 350.1.13.10 4.2.7.2.686 [id number] [facility] 2024-05-01 00:00:00 2024-06-01 18:17:36 Patient Secure Msg Doctor Unassigned, [place] Doctor Unassigned, [place] [facility] MEDICAL OFFICE BUILDING 1.2840.114 350.1.13.10 4.2.7.2.686 [id number] [facility] 2024-05-01 00:00:00 2024-06-01 18:17:28 Patient Secure Msg Doctor Unassigned, [place] Doctor Unassigned, [place] [facility] MEDICAL OFFICE BUILDING 1.2840.114 350.1.13.10 4.2.7.2.686 [id number] [facility] 2024-05-20 13:15:00 2024-05-20 13:19:39 Outpatient R RIC [facility]ER [facility] [id number] [facility] 2024-05-20 13:15:00 2024-05-20 13:19:39 Office Visit Ric Schneider [facility] MEDICAL OFFICE BUILDING 1.2840.114 350.1.13.10 4.2.7.2.686 [id number] [facility] 2024-04-16 00:00:00 2024-05-18 18:20:30 Patient Secure Msg Doctor Unassigned, [place] Doctor Unassigned, [place] [facility] MEDICAL OFFICE BUILDING 1.2.840.114 350.1.13.10 4.2.7.2.686 [id number] [facility] 2024-04-14 00:00:00 2024-05-16 10:04:55 Telephone Dimitri Rivas [facility] 1.2.840.114 350.1.13.10 4.2.7.2.686 [id number] [facility] 2024-05-08 00:00:00 2024-05-08 10:21:56 [facility] 1.2.840.114 350.1.13.10 4.2.7.2.686 [id number] [facility] 2024-05-01 00:00:00 2024-05-02 11:06:26 Telephone Ric Schneider [facility] MEDICAL OFFICE BUILDING 1.2.840.114 350.1.13.10 4.2.7.2.686 [id number] 196 [id number] [facility] 2024-04-29 00:00:00 2024-04-29 06:34:34 Telephone Theo Espinosa [facility] MEDICAL OFFICE BUILDING 1.2.840.114 350.1.13.10 4.2.7.2.686 [id number] [facility] 2024-04-29 00:00:00 2024-04-29 06:31:32 Telephone Ric Schneider [facility] MEDICAL OFFICE BUILDING 1.2.840.114 350.1.13.10 4.2.7.2.686 [id number] 196 [id number] [facility] 2024-04-24 00:00:00 2024-04-25 12:08:59 [facility] 1.2.840.114 350.1.13.10 4.2.7.2.686 [id number] 196 [id number] [facility] 2024-04-22 00:00:00 2024-04-25 08:28:10 Telephone Paradise Willis [facility] OFFICE BUILDING 1.2840.114 350.1.13.10 4.2.7.2.686 [id number] 196 [id number] [facility] 2024-04-19 00:00:00 2024-04-19 19:34:40 Patient Secure Msg Paradise Willis [facility] MEDICAL OFFICE BUILDING 1.2840.114 350.1.13.10 4.2.7.2.686 [id number] 196 [id number] [facility] 2024-04-19 13:45:00 2024-04-19 14:00:00 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 Visit Draw, Clc-Bls Lab Paradise Willis Draw, Clc-Bls Lab [facility] OFFICE BUILDING 1.840.114 350.1.13.10 4.2.7.2.686 [id number] [facility] 2024-04-19 12:00:00 2024-04-19 12:50:20 Outpatient R PARADISE WILLIS [facility] [id number] [facility] 2024-04-19 12:00:00 2024-04-19 12:50:20 Office Visit Paradise Willis [facility] MEDICAL OFFICE BUILDING 1.2840.114 350.1.13.10 4.2.7.2.686 [id number] [facility] 2024-04-18 00:00:00 2024-04-18 10:20:39 Transition of Care Mary Rivas Marisa M [facility] 1.2840.114 350.1.13.10 4.2.7.2.686 [id number] [facility] 2024-04-17 01:35:00 2024-04-17 11:55:00 Outpatient X PAULO ARCOS [facility] [id number] [facility] 2024-04-17 01:35:00 2024-04-17 11:55:00 Emergency Aarti, Tanner Grant, Aries Arcos, Paulo [facility] 1.2.840.114 350.1.13.10 4.2.7.2.686 [id number] [facility] 2024-04-17 11:30:00 2024-04-17 11:30:00 Outpatient R CRISTINA DICK [facility] [id number] [facility] 2024-04-12 00:00:00 2024-04-17 08:29:56 Telephone Ric Schneider [facility] OFFICE BUILDING 1.2.840.114 350.1.13.10 4.2.7.2.686 [id number] 196 [id number] [facility] 2024-04-17 00:00:00 2024-04-17 08:17:26 Telephone Ric Schneider [facility] MEDICAL OFFICE BUILDING 1.2.840.114 350.1.13.10 4.2.7.2.686 [id number] [facility] 2024-04-16 00:00:00 2024-04-16 13:18:37 Telephone Ric Schneider [facility] MEDICAL OFFICE BUILDING 1.2.840.114 350.1.13.10 4.2.7.2.686 [id number] [facility] 2024-04-12 00:00:00 2024-04-12 13:20:38 Telephone David Cristina [facility] MEDICAL OFFICE BUILDING 1.2.840.114 350.1.13.10 4.2.7.2.686 [id number] 196 [id number] [facility] 2024-04-12 00:00:00 2024-04-12 12:43:56 Telephone Ric Schneider [facility] MEDICAL OFFICE BUILDING 1.2.840.114 350.1.13.10 4.2.7.2.686 [id number] [facility] 2024-04-08 15:30:00 2024-04-08 15:45:00 Office Visit Ric Schneider [facility] MEDICAL OFFICE BUILDING 1.2.840.114 350.1.13.10 4.2.7.2.686 [id number] [facility] 2024-04-08 15:30:00 2024-04-08 15:30:00 Outpatient R RIC SCHNEIDER [facility] [id number] [facility] 2024-04-05 00:00:00 2024-04-05 16:41:54 Telephone Ric Schneider [facility] MEDICAL OFFICE BUILDING 1.2.840.114 350.1.13.10 4.2.7.2.686 [id number] [facility] 2024-04-01 00:00:00 2024-04-01 16:50:20 Telephone Ric Schneider [facility] MEDICAL OFFICE BUILDING 1.2.840.114 350.1.13.10 4.2.7.2.686 [id number] [facility] 2024-03-25 05:23:00 2024-03-31 12:15:00 Inpatient R RASHEL Cobian [facility] [id number] [facility] 2024-03-25 05:23:00 2024-03-31 12:15:00 Hospital Encounter Ric Schneider Micaela Peña Talha Yalamanchil i [facility] 1.2.840.114 350.1.13.10 4.2.7.2.686 [id number] [facility] 2024-03-25 15:30:00 2024-03-25 16:54:00 Anesthesia Event Dorina Womack Patrick 1.2.840.1 92664.1.1 3.104.2.7 .3.252659 .8 [id number] [facility] 2024-03-25 06:55:00 2024-03-25 15:32:00 Surgery Ric Schneider 1.2.840.1 33012.1.1 3.104.2.7 .3.131344 .8 [id number] [facility] 2024-03-25 07:10:00 2024-03-25 13:05:00 Anesthesia Event Jaycob Reno Denise R 1.2.840.1 02615.1.1 3.104.2.7 .3.264410 .8 [id number] [facility] 2024-03-16 00:00:00 2024-03-16 00:00:00 Prep For Surgery Ric Schneider 1.2.840.1 66805.1.1 3.104.2.7 .3.903506 .8 [id number] [facility] 2024-03-08 23:59:59 2024-03-08 23:59:59 Anesthesia Event Yajaira Estes R 1.2.840.1 27411.1.1 3.104.2.7 .3.246797 .8 [id number] [facility] 2024-03-07 00:00:00 2024-03-07 09:41:39 Telephone Ric Schneider 1.2.840.1 78361.1.1 3.104.2.7 .3.909834 .8 [id number] [facility] 2024-01-23 00:00:00 2024-02-24 18:19:02 Patient Secure Msg Doctor Unassigned, [place] 1.2.840.1 66837.1.1 3.104.2.7 .3.734179 .8 [id number] [facility] 2024-02-01 00:00:00 2024-02-01 13:33:45 Telephone Ric Schneider 1.2.840.1 39224.1.1 3.104.2.7 .3.275592 .8 [id number] [facility] 2023-12-21 00:00:00 2024-01-27 18:11:28 Patient Secure Msg Doctor Unassigned, [place] [facility] 1.2.840.114 350.1.13.10 4.2.7.2.686 [id number] [facility] 2024-01-26 08:00:00 2024-01-26 23:59:00 Outpatient R RIC SCHNEIDER [facility] [id number] [facility] 2024-01-26 07:32:08 2024-01-26 23:59:00 Hospital Encounter Ric Schneider 1.2.840.1 39318.1.1 3.104.2.7 .3.497315 .8 [id number] [facility] 2024-01-23 00:00:00 2024-01-25 09:31:31 Telephone Ric Schneider 1.2.840.1 16392.1.1 3.104.2.7 .3.679289 .8 [id number] [facility] 2024-01-23 00:00:00 2024-01-23 15:07:29 Telephone Jewell Chris 1.2.840.1 82463.1.1 3.104.2.7 .3.282150 .8 [id number] [facility] 2024-01-22 00:00:00 2024-01-23 09:08:04 Telephone Ric Schneider 1.2.840.1 64894.1.1 3.104.2.7 .3.706108 .8 [id number] [facility] 2024-01-22 13:30:00 2024-01-22 15:49:18 Outpatient R RIC [facility] [id number] [facility] 2024-01-22 13:30:00 2024-01-22 15:49:18 Office Visit Ric Schneider 1.2.840.1 05496.1.1 3.104.2.7 .3.317122 .8 [id number] [facility] 2024-01-22 00:00:00 2024-01-22 00:00:00 Travel 1.2.840.1 68493.1.1 3.104.2.7 .3.549273 .8 1.2.840.114 350.1.13.10 4.2.7.3.698 [id number] [facility] 2024-01-17 00:00:00 2024-01-17 00:00:00 Travel 1.2.840.1 91237.1.1 3.104.2.7 .3.312808 .8 1.2.840.114 350.1.13.10 4.2.7.3.698 084.8 [id number] [facility] 2024-01-12 23:59:59 2024-01-12 23:59:59 Anesthesia Event Edward Tobias 1.2.840.1 20204.1.1 3.104.2.7 .3.850476 .8 [id number] [facility] 2023-12-22 00:00:00 2023-12-22 00:00:00 Outpatient R RADIOLOGY [facility] [id number] [facility] 2023-12-22 00:00:00 2023-12-22 00:00:00 Telephone Jewell Chris [facility] 1.2.840.114 350.1.13.10 4.2.7.2.686 [id number] [facility] 2023-12-21 00:00:00 2023-12-21 00:00:00 Telephone Jewell Chris [facility] 1.2.840.114 350.1.13.10 4.2.7.2.686 [id number] [facility] 2023-12-04 00:00:00 2023-12-04 00:00:00 OFFICE VISIT ESTAB PT LEVEL 4 STLMLC STLMLC [id number] [facility] 2023-11-27 10:00:00 2023-11-27 11:10:09 Outpatient R NIK JEWELL [facility] [id number] [facility] 2023-11-27 10:00:00 2023-11-27 11:10:09 Office Visit ChrisJewell zuluaga [facility] 1.2.840.114 350.1.13.10 4.2.7.2.686 [id number] [facility] 2023-11-27 00:00:00 2023-11-27 00:00:00 Orders Only Doctor Unassigned, [place] [facility] 1.2.840.114 350.1.13.10 4.2.7.2.686 [id number] [facility] 2023-11-27 00:00:00 2023-11-27 00:00:00 Telephone Chris Jewell [facility] 1.2.840.114 350.1.13.10 4.2.7.2.686 [id number] [facility] 2023-11-27 00:00:00 2023-11-27 00:00:00 Patient Secure Msg Doctor Unassigned, [place] [facility] 1.2.840.114 350.1.13.10 4.2.7.2.686 [id number] [facility] 2023-11-20 00:00:00 2023-11-20 00:00:00 OFFICE VISIT ESTAB PT LEVEL 4 [id number] 2023-10-24 00:00:00 2023-10-24 00:00:00 Outpatient GC_GCBZW_Ka diyala_S PRIV PRIV [id number] [facility] 2023-10-23 00:00:00 2023-10-23 00:00:00 Orders Only Doctor Unassigned, [place] [facility] 1.840.114 350.1.13.10 4.2.7.2.686 [id number] [facility] 2023-07-11 00:00:00 2023-07-11 00:00:00 Outpatient GC_GCBZW_Ka diyala_S PRIV PRIV [id number] [facility] 2023-07-10 00:00:00 2023-07-10 00:00:00 Outpatient GC_GCBZW_Ka diyala_S PRIV PRIV [id number] [facility] 2022-07-22 13:00:00 2022-07-22 13:00:00 Outpatient R FORREST SILVEIRA [facility] [id number] [facility] 2022-05-12 00:00:00 2022-05-12 00:00:00 OFFICE VISIT ESTAB PT LEVEL 4 STLMLC STLC [id number] [facility] 2022-04-19 00:00:00 2022-04-19 00:00:00 OFFICE VISIT ESTAB PT LEVEL 4 STLMLC STLMLC [id number] [facility] 2022-01-17 00:00:00 2022-01-17 00:00:00 (TEL) STLC STLC [id number] [facility] 2022-01-14 14:00:00 2022-01-14 14:35:16 Office Visit Forrest Silveira [facility] 1..840.114 350.1.13.10 4.2.7.2.686 [id number] [facility] 2022-01-14 14:00:00 2022-01-14 14:35:16 Outpatient FORREST SETH [facility] [id number] [facility] 2022-01-14 14:00:00 2022-01-14 14:00:00 Outpatient FORREST SETH [facility] [id number] [facility] 2022-01-14 00:00:00 2022-01-14 00:00:00 Orders Only Doctor Unassigned, [place] [facility] 1.2.840.114 350.1.13.10 4.2.7.2.686 [id number] [facility] 2021-12-23 00:00:00 2021-12-23 00:00:00 Orders Only Doctor Unassigned, [place] [facility] 1.2.840.114 350.1.13.10 4.2.7.2.686 [id number] [facility] 2021-04-14 00:00:00 2021-04-14 00:00:00 Outpatient STLMLC STLMLC [id number] [facility] 2020-11-24 00:00:00 2020-11-24 00:00:00 Outpatient STLMLC STLMLC [id number] [facility] 2020-10-05 00:00:00 2020-10-05 00:00:00 Outpatient STLMLC STLMLC [id number] [facility] 2020-09-17 13:51:29 2020-09-17 23:59:00 Hospital Encounter Radiology [facility] [id number] [facility] 2020-09-17 13:51:29 2020-09-17 23:59:00 Outpatient R RADIOLOGY [facility] [id number] [facility] 2020-09-17 00:00:00 2020-09-17 00:00:00 Outpatient STLMLC STLC [id number] [facility] 2020-09-14 00:00:00 2020-09-14 00:00:00 Outpatient STLC STLC [id number] [facility] 2020-09-02 00:00:00 2020-09-02 00:00:00 Outpatient STLC STLC [id number] [facility] 2020-08-27 00:00:00 2020-08-27 00:00:00 Outpatient STLC STLC [id number] [facility] 2020-08-04 00:00:00 2020-08-04 00:00:00 Outpatient STLC STLC [id number] [facility] 2020-06-09 00:00:00 2020-06-09 00:00:00 Outpatient STLC STLC [id number] [facility] Results Test Description Test Time Test Comments Results Result Comments Source XR CHEST 1 VW 16:39:51 Chest X-Ray Indication: infectious w/u ? Technique: Frontal view(s) of the chest submitted for interpretation. Comparison: March 27, 2024 RL: [id number] Ordering Clinician: DEBO TAYLOR Technical Quality: Adequate Findings: No consolidation or effusion. ?No acute mediastinal abnormality. ?No acutefractures. [facility] CT HEAD W CONTRAST 08:21:22 Ordering physician: TANNER BROUSSARD Indication: Altered level of awareness, cerebral hemorrhage suspected Comparison: Head CT dated 03/26/2024, noncontrast head CT dated 04/17/2024 Technique: Axial images of the head were performed following theadministration of intravenous contrast material. CT scan was performedaccording to ALARA (as low as reasonably achievable) principles. 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 There is an extra-axial collectionunderlying the craniotomy, measuring 6 mm transverse (series 6, image 12).Minimal extra-axial collection overlying the anterior left temporal lobe isstable. There is minimal enhancement along the periphery of thecollections, within normal limits given the recent craniotomy. No otherabnormal enhancement is appreciated. No acute hemorrhage is appreciated.There is no significant parafalcine or transtentorial herniation. Thevisualized paranasal sinuses are clear. No middle ear or mastoid effusionis appreciated. There is no calvarial fracture. [facility] CT HEAD WO CONTRAST 08:07:59 Ordering physician: TANNER BROUSSARD Indication: Altered level of awareness, cerebral hemorrhage suspected Comparison: Head CT dated 03/26/2024 Technique: Axial images of the head were performed without administrationof intravenous contrast material. CT scan was performed according to ALARA(as low as reasonably achievable) principles. 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 Compared to the previous exam, thereis a decreased extra-axial collection underlying the craniotomy, measuring6 mm transverse, versus 8 mm transverse on the prior study. Minimalextra-axial collection overlying the anterior left temporal lobe is stable.No acute hemorrhage is appreciated. There is no parafalcine ortranstentorial herniation. The visualized paranasal sinuses are clear. Nomiddle ear or mastoid effusion is appreciated. There is no calvarialfracture. [facility] [id number] 06:58:16* Test Item Value Reference Range Interpretation Comme nts WBC (test code = 6690-2) 12.83 4.30-11.10 H RBC (test code = 789-8) 4.21 3.93-5.25 HGB (test code = 718-7) 12.6 g/dL 11.6-15.0 HCT (test code = 4544-3) 36.9 % 35.7-45.2 MCV (test code = 787-2) 87.6 fL 80.6-95.5 MCH (test code = 785-6) 29.9 pg 25.9-32.8 MCHC (test code = 786-4) 34.1 g/dL 31.6-35.1 RDW-SD (test code = 56708-3) 39.8 fL 39.0-49.9 RDW-CV (test code = 788-0) 12.4 % 12.0-15.5 PLT (test code = 777-3) 596 166-358 H MPV (test code = 11947-3) 8.5 fL 9.5-12.9 L NRBC/100 WBC (test code = 4675256308) 0.0 0.0-10.0 NRBC x10^3 (test code = 6013135824) See_Comment [Automated messa ge] The system which generated this result transmitted reference range: 10*3/?L. The reference range was not used to interpret this result as normal/abnormal. GRAN MAT (NEUT) % (test code = 770-8) 64.5 % IMM GRAN % (test code = 7735932133) 0.60 % LYMPH % (test code = 736-9) 26.1 % MONO % (test code = 5905-5) 6.9 % EOS % (test code = 713-8) 1.4 % BASO % (test code = 706-2) 0.5 % GRAN MAT x10^3(ANC) (test code = 1299161574) 8.27 10*3/uL 1.88-7.09 H IMM GRAN x10^3 (test code = 6884240887) 0.08 10*3/uL 0.00-0.06 H LYMPH x10^3 (test code = 731-0) 3.35 10*3/uL 1.32-3.29 H MONO x10^3 (test code = 742-7) 0.88 10*3/uL 0.33-0.92 EOS x10^3 (test code = 711-2) 0.18 10*3/uL 0.03-0.39 BASO x10^3 (test code = 704-7) 0.07 10*3/uL 0.01-0.07 Lab Interpretation (test code = 13470-7) [facility]normal [facility]2024-07-18 14:03:15* Test Item Value Reference Range Interpretation Comme nts MAGNESIUM (test code = 2320541680) 2.3 mg/dL 1.7-2.4 Lab Interpretation (test cod e = 21261-9) Normal [facility] Metabolic Panel (NA, K, CL, CO2, GLUCOSE, BUN, CREATININE, CA)2024-03-28 10:00:53* Test Item Value Reference Range Interpretation Comme nts NA (test code = 7708928402) 136 mmol/L 135-145 K (test code = 5965022265) 3.7 mmol/L 3.5-5.0 CL (test code = 4527116771) 108 mmol/L 98-108 CO2 TOTAL (test code = 2564579680) 16 mmol/L 23-31 L AGAP (test code = 2778386970) 12 2-16 BUN (test code = 2035272034) 8 mg/dL 7-23 GLUCOSE (test code = 7125408991) 113 mg/dL 70-110 H CREATININE (test code = 2160-0) 0.31 mg/dL 0.50-1.04 L CALCIUM (test code = 5673764992) 9.5 mg/dL 8.6-10.6 eGFR (test code = 83852-3) 119.9 mL/min/1.73m2 CKD-EPI eGFR (2020). Assuming creatinine has been stable day-to-day for at least three months, the eGFR indicates Category G1 (>= 90 mL/min/1.73 m2) Lab Interpretation (test code = 93704-4) Abnormal [facility] with [id number] 09:39:29* Test Item Value Reference Range Interpretation Comme nts WBC (test code = 6690-2) 15.59 4.30-11.10 H RBC (test code = 789-8) 3.88 3.93-5.25 L HGB (test code = 718-7) 12.0 g/dL 11.6-15.0 HCT (test code = 4544-3) 36.3 % 35.7-45.2 MCV (test code = 787-2) 93.6 fL 80.6-95.5 MCH (test code = 785-6) 30.9 pg 25.9-32.8 MCHC (test code = 786-4) 33.1 g/dL 31.6-35.1 RDW-SD (test code = 41611-8) 45.8 fL 39.0-49.9 RDW-CV (test code = 788-0) 13.4 % 12.0-15.5 PLT (test code = 777-3) 359 166-358 H MPV (test code = 43479-4) 9.0 fL 9.5-12.9 L NRBC/100 WBC (test code = 5439279089) 0.0 0.0-10.0 NRBC x10^3 (test code = 3412519127) See_Comment [Automated message] The system which generated this result transmitted reference range: 10*3/?L. The reference range was not used to interpret this result as normal/abnormal. GRAN MAT (NEUT) % (test code = 770-8) 78.0 % IMM GRAN % (test code = 7506499557) 0.80 % LYMPH % (test code = 736-9) 14.1 % MONO % (test code = 5905-5) 6.3 % EOS % (test code = 713-8) 0.4 % BASO % (test code = 706-2) 0.4 % GRAN MAT x10^3(ANC) (test code = 2850610035) 12.16 10*3/uL 1.88-7.09 H IMM GRAN x10^3 (test code = 8201593202) 0.12 10*3/uL 0.00-0.06 H LYMPH x10^3 (test code = 731-0) 2.20 10*3/uL 1.32-3.29 MONO x10^3 (test code = 742-7) 0.98 10*3/uL 0.33-0.92 H EOS x10^3 (test code = 711-2) 0.07 10*3/uL 0.03-0.39 BASO x10^3 (test code = 704-7) 0.06 10*3/uL 0.01-0.07 Lab Interpretation (test code = 38754-6) Abnormal [facility] 1 [id number] 19:16:43EXAM: XR CHEST 1 03/27/2024 8:44 AM HISTORY: 63 years old Female with fever work up TECHNIQUE: Portable AP view of the chest. COMPARISON: Chest x-ray dated 12/21/2023. FINDINGS: Lines/tubes and devices: None. Lungs and pleura: The lung volumes are normal. Right basal linear opacitythat may be related to atelectasis. No pneumothorax, or pleural effusion. Cardiomediastinal: The cardiomediastinal silhouette is normal accountingfor technique. Musculoskeletal: No acute osseous abnormality.[facility] with Diff 2024-03-27 08:38:47* Test Item Value Reference Range Interpretation Comme nts WBC (test code = 6690-2) 19.66 4.30-11.10 H RBC (test code = 789-8) 3.51 3.93-5.25 L HGB (test code = 718-7) 11.0 g/dL 11.6-15.0 L HCT (test code = 4544-3) 32.3 % 35.7-45.2 L MCV (test code = 787-2) 92.0 fL 80.6-95.5 MCH (test code = 785-6) 31.3 pg 25.9-32.8 MCHC (test code = 786-4) 34.1 g/dL 31.6-35.1 RDW-SD (test code = 53875-9) 47.0 fL 39.0-49.9 RDW-CV (test code = 788-0) 14.1 % 12.0-15.5 PLT (test code = 777-3) 334 166-358 MPV (test code = 68363-5) 9.4 fL 9.5-12.9 L NRBC/100 WBC (test code = 4255586607) 0.0 0.0-10.0 NRBC x10^3 (test code = 8794067909) See_Comment [Automated message] The system which generated this result transmitted reference range: 10*3/?L. The reference range was not used to interpret this result as normal/abnormal. GRAN MAT (NEUT) % (test code = 770-8) 78.9 % IMM GRAN % (test code = 4853568082) 0.80 % LYMPH % (test code = 736-9) 13.4 % MONO % (test code = 5905-5) 6.5 % EOS % (test code = 713-8) 0.1 % BASO % (test code = 706-2) 0.3 % GRAN MAT x10^3(ANC) (test code = 3792390879) 15.52 10*3/uL 1.88-7.09 H IMM GRAN x10^3 (test code = 5253714203) 0.15 10*3/uL 0.00-0.06 H LYMPH x10^3 (test code = 731-0) 2.63 10*3/uL 1.32-3.29 MONO x10^3 (test code = 742-7) 1.28 10*3/uL 0.33-0.92 H EOS x10^3 (test code = 711-2) 0.03-0.39 L BASO x10^3 (test code = 704-7) 0.06 10*3/uL 0.01-0.07 Lab Interpretation (test code = 56880-5) Abnormal [facility] Metabolic Panel (NA, K, CL, CO2, GLUCOSE, BUN, CREATININE, CA)2024-03-27 08:34:40* Test Item Value Reference Range Interpretation Comme nts NA (test code = 8340756977) 136 mmol/L 135-145 K (test code = 9521560996) 3.7 mmol/L 3.5-5.0 Slight hemolysis CL (test code = 6779350172) 112 mmol/L 98-108 H CO2 TOTAL (test code = 9487926383) 18 mmol/L 23-31 L AGAP (test code = 9414833535) 6 2-16 BUN (test code = 4609891845) 4 mg/dL 7-23 L Slight hemolysis GLUCOSE (test code = 3066453773) 120 mg/dL 70-110 H CREATININE (test code = 2160-0) 0.36 mg/dL 0.50-1.04 L CALCIUM (test code = 7701683867) 8.7 mg/dL 8.6-10.6 eGFR (test code = 37207-4) 115.7 mL/min/1.73m2 CKD-EPI eGFR (2020). Assuming creatinine has been stable day-to-day for at least three months, the eGFR indicates Category G1 (>= 90 mL/min/1.73 m2) Lab Interpretation (test code = 16439-4) Abnormal [facility] HospitalPhosphorus2024-07-17 08:33:30* Test Item Value Reference Range Interpretation Comme nts PHOSPHORUS (test code = 5563599264) 2.6 mg/dL 2.5-5.0 Lab Interpretation (test cod e = 46287-0) Normal [facility] HospitalMagnesium2024-07-17 08:33:29* Test Item Value Reference Range Interpretation Comme nts MAGNESIUM (test code = 6153186788) 2.1 mg/dL 1.7-2.4 Lab Interpretation (test cod e = 38581-9) Normal [facility] HospitalCT HEAD WO [id number] 15:44:42CT HEAD WO CONTRAST HISTORY: Female 63 years s/p L ICA terminus aneurysm clipping COMPARISON: CT head dated 12/21/2023 TECHNIQUE: Routine CT head without contrast FINDINGS: Postsurgical changes of left pterional craniotomy and left ICA aneurysmclipping are noted. A shallow extradural collection subjacent to thecraniotomy contains mild postoperative blood products and measures up to 8mm in maximum.The ventricles and cerebral sulci are normal in caliber and configuration.Trace subarachnoid hemorrhage is noted in the left sylvian fissure andfrontoparietal operculum. No hydrocephalus is present. Mild midline shiftto the left of up to 4 mm is noted. The basal cisterns are unremarkable. The wiley-w zhao matter differentiation is preserved. There is anapproximately 1 cm focus of hypoattenuation inthe left basal gangliainferior to the caudate head which could be artifactual but may representacute or subacute ischemia. No additional parenchymal attenuationabnormality is present. The mastoid aircells and visualized paranasal air sinuses are clear.[facility] HospitalCT HEAD WO [id number] 15:44:42CT HEAD WO CONTRAST HISTORY: Female 63 years s/p L ICA terminus aneurysm clipping COMPARISON: CT head dated 12/21/2023 TECHNIQUE: Routine CT head without contrast FINDINGS: Postsurgical changes of left pterional craniotomy and left ICA aneurysmclipping are noted. A shallow extradural collection subjacent to thecraniotomy contains mild postoperative blood products and measures up to 8mm in maximum.The ventricles and cerebral sulci are normal in caliber and configuration.Trace subarachnoid hemorrhage is noted in the left sylvian fissure andfrontoparietal operculum. No hydrocephalus is present. Mild midline shiftto the left of up to 4 mm is noted. The basal cisterns are unremarkable. The wiley-white matter differentiation is preserved. There is anapproximately 1 cm focus of hypoattenuation inthe left basal gangliainferior to the caudate head which could be artifactual but may representacute or subacute ischemia. No additional parenchymal attenuationabnormality is present. The mastoid aircells and visualized paranasal air sinuses are clear.[facility] HospitalIR AN[facility]IOGRAM CEREBRAL 2024-03-25 21:29:43Examination:Diagnostic cerebral angiogram Date of procedure 03/25/2024 Operators:Dr. Ric Schneider Indication: Cerebral aneurysm Consent: The patient was given a full and complete explanation of the procedureincluding the risks, benefits, and possible complications which include butare not limited to vessel injury, vessel rupture, stroke, infection, comaand , and may include additional procedures. ?Patient understood andwished to proceed. Anesthesia: Conscious sedation and local infiltration ofthe groin using subcutaneousand subcuticular injection of 1% lidocaine. Procedure: The patient was brought into the biplane high resolution angiography suiteand placed supine on the table. ?After prepping and draping both femoralregions in the usual sterile fashion, a 21-gauge [employer] micro puncture needlewas used to puncture the femoral artery and after brisk return of ?arterialblood, a 0.018 inch wire was threaded via the needle, after the needle waswithdrawn a 4-[place] dilator was used, subsequently a 0.035 inch Matt Jwire was advanced under fluoroscopy. ?A 4-[place] vascular sheath was thenadvanced over the wire and connected to a pressurized arterial saline baginfusing 4 units heparin/ML.A 4-[place] Berenstein 2 catheter, ?was then advanced over a Matt J wire tothe aortic arch. Following this, a 3cm floppy tip 0.035 inch TerumoGlidewire was used to select the following arteries followed by biplaneimage acquisition of the same: Vessels catheterized: - Left Common Carotid Artery - Left Internal Carotid Artery - Left External Carotid Artery Vessels imaged: Left common carotid artery, cervical, oblique AP and lateralLeft internal carotid artery, intracranial, AP, lateralLeft internal carotid artery, intracranial, biplane obliqueLeft external carotid artery, intracranial, biplane,AP, lateralRight common femoral artery, single plane oblique. 3-D rotational angiography acquisitions were performed of the left internalcarotid artery ?These 3-D acquisitions were then transferred, r econstructedand analyzed on independent computer workstation. ? The catheter was removed from the patient and images were reviewed. The right common femoral artery arterial sheath was then removed and groinhemostasis was achieved by Angio-Seal closure device. Patient tolerated the procedure well without complications. Findings were discussed with the patient, his family and the referringphysicians. Findings: - Left Common Carotid Artery: Carotid bifurcation is normal. No evidence of carotid stenosis. CervicalICA is normal. - Left Internal Carotid Artery with 3-D rotational angiography: Normalappearance of the petrous, cavernous and supraclinoid internalcarotid arteries. The carotid terminus, anterior and middle cerebralarteries are normal. The ICA terminus aneurysm is completely obliteratedwith no residual. The A1 and the M1 are patent. - Left External Carotid Artery: Normal anatomy and no evidence of arteriovenous shunting or duralfistulization.[facility] IR ANGIOGRAM [id number] 21:29:43Examination:Diagnostic cerebral angiogram Date of procedure 03/25/2024 Operators:Dr. Ric Schneider Indication: Cerebral aneurysm Consent: The patient was given a full and complete explanation of the procedureincluding the risks, benefits, and possible complications which include butare not limited to vessel injury, vessel rupture, stroke, infection, comaand , and may include additional procedures. ?Patient understood andwished to proceed. Anesthesia: Conscious sedation and local infiltration of the groin using subcutaneousand subcuticular injection of 1% lidocaine. Procedure: The patient was brought into the biplane high resolution angiography suiteand placed supine on the table. ?After prepping and draping both femoralregions in the usual sterile fashion, a 21-gauge [employer] micro puncture ne edlewas used to puncture the femoral artery and after brisk return of ?arterialblood, a 0.018 inch wire was threaded via the needle, after the needle waswithdrawn a 4-[place] dilator was used, subsequently a 0.035 inch Matt Jwire was advanced under fluoroscopy. ?A 4-[place] vascular sheath was thenadvanced over the wire and connected to a pressurized arterial saline baginfusing 4 units heparin/ML.A 4-[place] Berenstein 2 catheter, ?was then advanced over a Matt J wire tothe aortic arch. Following this, a 3cm floppy tip 0.035 inch TerumoGlidewire was used to select the following arteries followed by biplaneimage acquisition of the same: Vessels catheterized: - Left Common Carotid Artery - Left Internal Carotid Artery - Left External Carotid Artery Vessels imaged: Left common carotid artery, cervical, oblique AP and lateralLeft internal carotid artery, intracranial, AP, lateralLeft internal carotid artery, intracranial, biplane obliqueLeft external carotid artery, intracranial, biplane,AP, lateralRight common femoral artery, single plane oblique. 3-D rotational angiography acquisitions were performed of the left internalcarotid artery ?These 3-D acquisitions were then transferred, reconstructedand analyzed on independent computer workstation. ? The catheter was removed from the patient and images were reviewed. The right common femoral artery arterial sheath was then removed and groinhemostasis was achieved by Angio-Seal closure device. Patient tolerated the procedure well without complications. Findings were discussed with the patient, his family and the referringphysicians. Findings: - Left Common Carotid Artery: Carotid bifurcation is normal. No evidence of carotid stenosis. CervicalICA is normal. - Left Internal Carotid Artery with 3-D rotational angiography: Normal appearance of the petrous, cavernous and supraclinoid internalcarotid arteries. The carotid terminus, anterior and middle cerebralarteries are normal. The ICA terminus aneurysm is completely oblitera tedwith no residual. The A1 and the M1 are patent. - Left External Carotid Artery: Normal anatomy and no evidence of arteriovenous shunting or duralfistulization.[facility] Acute Care Arterial 2024-03-25 17:42:11* Test Item Value Reference Range Interpretation Comme nts PH (test code = 2) 7.36 7.35-7.45 PCO2 (test code = 6238526528) 40 35-45 PO2 (test code = 5392254616) 114 80-100 H BE (test code = 5685741725) -3.0 -3.0-3.0 HCO3 (test code = 9828406859) 23 22-26 %O2HB (test code = 8657529102) 98.0 % 95.0-98.0 NA (test code = 5842780458) 135 mmol/L 135-145 K+ (test code = 0834643792) 3.1 mmol/L 3.5-5.0 L AC CA IONZ (test code = 1918217357) 4.60 mg/dL 4.50-5.30 GLUCOSE (test code = 4284127535) 104 mg/dL 70-110 AC Hematocrit (test code = 2609194152) 34 40-54 L THB (test code = 4672575715) 11.6 g/dL 12.0-16.0 L AC TC02 (test code = 0248876760) 24 mmol/L See_Comment [Automated messa ge] The system which generated this result transmitted reference range: 23-27 mmol/L. The reference range was not used to interpret this result as normal/abnormal. Lab Interpretation (test code = 33106-8) Abnormal [facility] Acute Care [id number] 17:42:11* Test Item Value Reference Range Interpretation Comme nts PH (test code = 2) 7.36 7.35-7.45 PCO2 (test code = 5898491057) 40 35-45 PO2 (test code = 9255320205) 114 80-100 H BE (test code = 3294273674) -3.0 -3.0-3.0 HCO3 (test code = 8792139367) 23 22-26 %O2HB (test code = 9931331033) 98.0 % 95.0-98.0 NA (test code = 4029014785) 135 mmol/L 135-145 K+ (test code = 5188935085) 3.1 mmol/L 3.5-5.0 L AC CA IONZ (test code = 9500824113) 4.60 mg/dL 4.50-5.30 GLUCOSE (test code = 3174164945) 104 mg/dL 70-110 AC Hematocrit (test code = 5872298322) 34 40-54 L THB (test code = 2187140882) 11.6 g/dL 12.0-16.0 L AC TC02 (test code = 8223358021) 24 mmol/L See_Comment [Automated messa ge] The system which generated this result transmitted reference range: 23-27 mmol/L. The reference range was not used to interpret this result as normal/abnormal. Lab Interpretation (test code = 99896-5) Abnormal [facility] [id number] 12:40:00Gopi Houser MD ? ? 03/25/2024 ?7:41 AM Arterial Line Date/Time: 03/25/2024 7:40 AM Performed by: Gopi Houser MDArteriacarlitos Line Placement: ?Ultrasound-Guided: surface landmarks ? ?Patient Location: ?Pre-op ?Indication: continuous blood pressure monitoring and blood sampling needed ?Staff: ?Supervising Anesthesiologist: ?Dorina Womack MD ?Resident: ?Jaskaran Menon, MDProcedure Detail: ?Cath eter Size: ?20 gauge ?Catheter Length: ?1 and 3/4 inch ?Catheter Type: ?Arrow ?Seldinger Technique?: No ? ?Laterality: ?Left ?Site: ?Radial artery ?Line Secured: ?Tape, Tegaderm and biopatch ?Preparation: ?Chloroprep, sterile gloves, guidewire removed intact and biopatch appliedEvents: ?Events: ?Patient tolerated procedure well with no complications and all wires accounted forComments: ? 1x attempt(s), smooth and atraumatic. [facility] HospitalIntubation2024-07-15 12:20:00Gopi Houser MD ? ? 03/25/2024 ?7:41 AMIntubationDate/Time: 03/25/2024 7:20 AMUrgency: elective Airway not difficult General Information and Staff Patient location during procedure: ORPerformed: resident/FIRE[employer] SALES ASSOCIATE Performed by: Gopi Houser MDAuthorized by: Dorina Womack MD ? Indications and Patient ConditionIndications for airway management: anesthesiaSpontaneous Ventilation: absentSedation level: deepPreoxygenated: yesPatient position: sniffingMILS maintained throughoutMask difficulty assessment: 0 - not attempted Final Airway DetailsFinal airway type: endotracheal airway Successful airway: ETTCuffed: yes Successful intubation technique: direct laryngoscopyFacilitating devices/methods: intubating styletEndotracheal tube insertion site: oralBlade: MacintoshBlade size: #3ETT size (mm): 7.0Cormack-Lehane Classification: grade I - full view of glottisPlacement verified by: chest auscultation and capnometry Measured from: teethETT to teeth (cm): 21Number of attempts at approach: 1Ventilation between attempts: noneNumber of other approaches attempted: 0 Additional CommentsSmooth, atraumatic, dentition and lips unchanged from pre-op.[facility] with [id number] 14:17:09* Test Item Value Reference Range Interpretation Comme nts WBC (test code = 6690-2) 12.06 4.30-11.10 H RBC (test code = 789-8) 4.39 3.93-5.25 HGB (test code = 718-7) 14.1 g/dL 11.6-15.0 HCT (test code = 4544-3) 42.5 % 35.7-45.2 MCV (test code = 787-2) 96.8 fL 80.6-95.5 H MCH (test code = 785-6) 32.1 pg 25.9-32.8 MCHC (test code = 786-4) 33.2 g/dL 31.6-35.1 RDW-SD (test code = 10457-6) 47.1 fL 39.0-49.9 RDW-CV (test code = 788-0) 13.2 % 12.0-15.5 PLT (test code = 777-3) 392 166-358 H MPV (test code = 25091-9) 9.0 fL 9.5-12.9 L NRBC/100 WBC (test code = 4686955177) 0.0 0.0-10.0 NRBC x10^3 (test code = 6532005433) See_Comment [Automated messa ge] The system which generated this result transmitted reference range: 10*3/?L. The reference range was not used to interpret this result as normal/abnormal. GRAN MAT (NEUT) % (test code = 770-8) 53.6 % IMM GRAN % (test code = 1150373733) 0.90 % LYMPH % (test code = 736-9) 35.6 % MONO % (test code = 5905-5) 7.5 % EOS % (test code = 713-8) 1.7 % BASO % (test code = 706-2) 0.7 % GRAN MAT x10^3(ANC) (test code = 2241361114) 6.46 10*3/uL 1.88-7.09 IMM GRAN x10^3 (test code = 9038036826) 0.11 10*3/uL 0.00-0.06 H LYMPH x10^3 (test code = 731-0) 4.29 10*3/uL 1.32-3.29 H MONO x10^3 (test code = 742-7) 0.91 10*3/uL 0.33-0.92 EOS x10^3 (test code = 711-2) 0.21 10*3/uL 0.03-0.39 BASO x10^3 (test code = 704-7) 0.08 10*3/uL 0.01-0.07 H Lab Interpretation (test code = 87069-4) Abnormal [facility] HospitalCb with [id number] 14:17:09* Test Item Value Reference Range Interpretation Comme nts WBC (test code = 6690-2) 12.06 4.30-11.10 H RBC (test code = 789-8) 4.39 3.93-5.25 HGB (test code = 718-7) 14.1 g/dL 11.6-15.0 HCT (test code = 4544-3) 42.5 % 35.7-45.2 MCV (test code = 787-2) 96.8 fL 80.6-95.5 H MCH (test code = 785-6) 32.1 pg 25.9-32.8 MCHC (test code = 786-4) 33.2 g/dL 31.6-35.1 RDW-SD (test code = 70545-2) 47.1 fL 39.0-49.9 RDW-CV (test code = 788-0) 13.2 % 12.0-15.5 PLT (test code = 777-3) 392 166-358 H MPV (test code = 88832-6) 9.0 fL 9.5-12.9 L NRBC/100 WBC (test code = 8886607228) 0.0 0.0-10.0 NRBC x10^3 (test code = 6376803080) See_Comment [Automated messa ge] The system which generated this result transmitted reference range: 10*3/?L. The reference range was not used to interpret this result as normal/abnormal. GRAN MAT (NEUT) % (test code = 770-8) 53.6 % IMM GRAN % (test code = 3343340915) 0.90 % LYMPH % (test code = 736-9) 35.6 % MONO % (test code = 5905-5) 7.5 % EOS % (test code = 713-8) 1.7 % BASO % (test code = 706-2) 0.7 % GRAN MAT x10^3(ANC) (test code = 0844335162) 6.46 10*3/uL 1.88-7.09 IMM GRAN x10^3 (test code = 4439671086) 0.11 10*3/uL 0.00-0.06 H LYMPH x10^3 (test code = 731-0) 4.29 10*3/uL 1.32-3.29 H MONO x10^3 (test code = 742-7) 0.91 10*3/uL 0.33-0.92 EOS x10^3 (test code = 711-2) 0.21 10*3/uL 0.03-0.39 BASO x10^3 (test code = 704-7) 0.08 10*3/uL 0.01-0.07 H Lab Interpretation (test code = 47879-8) [facility]normal [facility] [id number] 13:50:49 Examination:Diagnostic cerebral angiogram Date of procedure 01/24/2024 Operators:Dr. Ric Schneider Indication: Left ICA terminus aneurysm Consent: The patient was given a full and complete explanation of the procedureincluding the risks, benefits, and possible complications which include butare not limited to vessel injury, vessel rupture, stroke, infection, comaand , and may include additional procedures. ?Patient understood andwished to proceed. Anesthesia: Conscious sedation and local infiltration of the right wrist usingsubcutaneous and subcuticular injection of 1% lidocaine. Procedure: The patient was brought into the biplane high resolution angiography suiteand placed supine on the tab le. ?After prepping and draping both femoraland right radial regions in the usual sterile fashion, a 21-gauge Cookmicro puncture needle was used to puncture the right radial artery andafter brisk return of ?arterial blood, a 0.018 inch wire was threaded viathe needle, after the needle was withdrawna 4-[place]ore[place] vascular sheath wasthen advanced over the wire and connected to a pressurized arterial salinebag infusing 4 units heparin/ML. A 4-[place] Gratafy 2 catheter, ?was then advanced over a 0.035inch TerumoGlidewire and the catheter was used to select the following arteriesfollowed by biplane image acquisition of the same: Vessels catheterized: - Right Common Carotid Artery ?- Right InternalCarotid Artery- Right Subclavian Artery (Selection of the vessel followed by single imageacquisition of the same),- Right Vertebral Artery - Left Common Carotid Artery - Left Internal Carotid Artery - Left Subclavian Artery (Selection of the vessel followed by single imageacquisition of the same),-Left Vertebral Artery Vessels imaged: Right common carotid artery, cervical, oblique AP, lateralRight internal carotid artery, intracranial, AP, lateralRight internal carotid artery, intracranial, biplane obliqueRight external carotid artery, intracranial, biplane, AP, lateralLeft common carotid artery, cervical, oblique AP and lateralLeft internal carotid artery, intracranial, AP, lateralLeft internal carotid artery, intracranial, biplane obliqueLeft external carotid artery, intracranial, biplane, AP, lateralRight vertebral artery, intracranial, AP, lateralLeft vertebral artery, intracranial, AP, lateralRight common femoral artery, single plane oblique. 3-D rotational angiography acquisitions were performed of the rightinternal carotid artery and left internal carotid artery ?These 3-Dacquisitions were then transferred, reconstructed and analyzed onindependent computer workstation. ? The catheter was removed from the patient and images were reviewed. The right radial artery arterial sheath was then removed and wristhemostasis was achieved by compression band. Patient tolerated the procedure well without complications. Findings were discussed with the patient, his family and the referringphysicians. Findings: - Right Common Carotid Artery: Carotid bifurcation is widely patent. There is no carotid stenosis.Cervical ICA is normal. - Right Internal Carotid Artery with 3-D rotational angiography: Normal appearance of the petrous, cavernous and supraclinoid internalcarotid arteries. The carotid terminus, anterior and middle cerebralarteries are normal. Anterior communicating artery is demonstrated well andis normal in appearance. Right External Carotid Artery: Normal anatomy and no evidence of arteriovenous shunting or duralfistulization. - Left Common Carotid Artery: Carotid bifurcation is normal. No evidence of carotid stenosis. CervicalICA is normal. - Left Internal Carotid Artery with 3-D rotational angiography: There is an anterior pointing left ICA terminus aneurysm that measures 6 x4 mm with a neck of 4 mm. The aneurysm is irregular in appearance. - Left External Carotid Artery: Normal anatomy and no evidence of arteriovenous shunting or duralfistulization. -Right Subclavian Artery: Normal anatomy with no evidence of stenosis or dissection. ?The origin ofthe right vertebral artery is normal without stenosis. - Right Vertebral Artery: Normal course in thecervical segment. Intracranial images do notdemonstrate any evidence of intracranial aneurysm, arteriovenous shuntingor intracranial stenosis. ? - Left Subclavian Artery: Normal anatomy with no evidence of stenosis or dissection. ?The origin ofthe left vertebral artery is normal, without stenosis. - Left Vertebral Artery: Normal course in the cervical segment. Intracranial images do not show anyevidence of intracranial aneurysm, arteriovenous shunting or intracranialstenosis.[facility]Proth[facility]bin Time / INR 2024-01-26 13:32:35* Test Item Value Reference Range Interpretation Comme [facility] PROTIME PATIENT (test code = 5964-2) 9.9 10.1-12.6 L INR (test code = 6301-6) 0.8 Normal INR <1.1; Warfarin Therapeutic range 2.0 to 3.0 or 2.5 to 3.5, depending upon the indications. Lab Interpretation (test code = 94683-0) Abnormal [facility] Time / [id number] 13:32:35* Test Item Value Reference Range Interpretation Comme [facility] PROTIME PATIENT (test code = 5964-2) 9.9 10.1-12.6 L INR (test code = 6301-6) 0.8 Normal INR <1.1; Warfarin Therapeutic range 2.0 to 3.0 or 2.5 to 3.5, depending upon the indications. Lab Interpretation (test code = 92061-6) Abnormal [facility] Metabolic Panel (NA, K, CL, CO2, GLUCOSE, BUN, CREATININE, CA)2024-01-26 13:06:38* Test Item Value Reference Range Interpretation Comme nts NA (test code = 9848804198) 138 mmol/L 135-145 K (test code = 1313765205) 3.8 mmol/L 3.5-5.0 CL (test code = 6825697050) 108 mmol/L 98-108 CO2 TOTAL (test code = 1982971259) 25 mmol/L 23-31 AGAP (test code = 3133653786) 5 2-16 BUN (test code = 7848774327) 14 mg/dL 7-23 GLUCOSE (test code = 7986307133) 96 mg/dL 70-110 CREATININE (test code = 2160-0) 0.44 mg/dL 0.50-1.04 L CALCIUM (test code = 9621269581) 9.4 mg/dL 8.6-10.6 eGFR (test code = 76794-0) 110.2 mL/min/1.73m2 CKD-EPI eGFR (2020). Assuming creatinine has been stable day-to-day for at least three months, the eGFR indicates Category G1 (>= 90 mL/min/1.73 m2) Lab Interpretation (test code = 96746-6) Abnormal [facility] Metabolic Panel (NA, K, CL, CO2, GLUCOSE, BUN, CREATININE, CA)2024-01-26 13:06:38* Test Item Value Reference Range Interpretation Comme nts NA (test code = 4290583028) 138 mmol/L 135-145 K (test code = 0837764004) 3.8 mmol/L 3.5-5.0 CL (test code = 9472127633) 108 mmol/L 98-108 CO2 TOTAL (test code = 3595506599) 25 mmol/L 23-31 AGAP (test code = 7166781057) 5 2-16 BUN (test code = 8679188409) 14 mg/dL 7-23 GLUCOSE (test code = 3408649804) 96 mg/dL 70-110 CREATININE (test code = 2160-0) 0.44 mg/dL 0.50-1.04 L CALCIUM (test code = 9765193444) 9.4 mg/dL 8.6-10.6 eGFR (test code = 58617-5) 110.2 mL/min/1.73m2 CKD-EPI eGFR (2020). Assuming creatinine has been stable day-to-day for at least three months, the eGFR indicates Category G1 (>= 90 mL/min/1.73 m2) Lab Interpretation (test code = 74331-0) Abnormal [facility] HospitalREFERRAL- REQUEST/[id number] 19:09:26 Ordered by an unspecified provider.[facility]REFERRAL- REQUEST/[id number] 19:09:26Ordered by an unspecified provider.[facility]REFERRAL- REQUEST/[id number] 19:09:26Ordered by an unspecified provider.[facility]REFERRAL- REQUEST/[id number] 19:09:26Ordered by an unspecified provider.[facility] Consult Notes Date/Time Note Provider Source 2024-03-28 11:39:01 Associated Order(s): 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 Pt sister is requesting home health services. Pt sister report pt may stay with her a few days after hospital discharge and then travel back to [place], [place]. SW informed Casie we would need to find a home health service that will be willing to start services in the [facility] and continue in [place]. As well as accept . SW previously discuss with pt Tessy care after hospitalization. Pt decline home health services as well bedside commode. SW will follow up with pt Tessy regarding home health services as well as rolling walker. SW attempted to call Tessy, their was no answer. EWDARD will continue to make contact. Nina Crockett LMSW CLC Care Management [email or web address] [phone] [facility] 2024-03-26 15:05:53 Associated Order(s): CONSULT ADULT PHYSICAL THERAPY Images from the original note were not included. Patient agreeable to working with physical therapy. Patient met semi reclined in bed. Recommend nursing staff utilize angelica stedy to safely assist patient with mobility out of the bed or chair. PHYSICAL THERAPY EVALUATION Consult received, chart reviewed and evaluation complete this date. Patient is referred to PT for evaluation and treatment. 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 . Assessment done with Terrell OT in anticipation of level of care Discharge Recommendations: Therapy Needs and Potential: Patient would benefit from continued physical therapy services to address: decline in bed mobility decline in transfers decline in gait and/or balance decreased strength decreased endurance decreased coordination Patient demonstrates good potential to improve and meet therapy goals with further physical therapy services. Challenges to Home Transition: increased risk of falls decreased safety awareness environmental barriers Equipment recommendations: TBD Current Functional Status and/or Treatment: AM-PAC 6 Clicks (Raw Score 0=Dependent, 24=Independent; Low function Raw Score 0= Dependent, 32=Independent): Raw Score - Basic Mobility : 12 T-Scale Score - Basic Mobility : 32.23 Bed Mobility: Rolling: Moderate Assistance with cues for ue placement on bed rail to facilitated sidelying Supine to sit max assist Max cues for sequencing and ue /le placement Sitting balance fair with ue support Sit to supine max assist using glider sheet Dizziness Yes Transfers: Sit to stand: Moderate Assistance using no device. Stand to sit: Moderate Assistance using no device. Static/dynamic standing balance: Fair Verbal cueing provided for correct hand placement and correct use of AD Provided verbal and tactile cues for pace breathing during positional transition with rest breaks in between to minimize shortness of breath Dizziness Yes Ambulation: PRE-GAIT ACTIVITIES: Pre-Gait activities: Static standing exercises with Double Stance support. Progressed to lateral weight shifting. Moving stability with x 2 person side step to head of bed. Patient was able to complete 6 small side steps. Unable to progress ambulation in the room secondary to decreased endurance and BLE weakness Dizziness Yes Therapeutic exercise: patient educated in Compensatory techniques/adaptive strategies, Deep breathing, Energy conservation, Fall prevention, General strengthening, Gross motor coordination of LEs, Relaxation/breathing techniques, and Safety awareness. and patient/caregiver verbalizes understanding of instructions. Educated on importance of BLE exercises while sitting and in supine position for cardiovascular health , prevent orthostatic pressure during positional transition, improve strength, activity tolerance and ROM PATIENT TEACHING: Functional Mobility and the importance/benefits of active and safe performance to help prevent BLE DVT's, PNA, overall decrease in mobility, strength, and endurance, skin breakdown BLE Strengthening Exercises Safety and Transfer training with use of appropriate AD -- All topics reviewed in great detail stressing the importance of continuing safe performance of all functional activities as Independently as possible and providing assistance when/if needed -- Stressed the importance of continuing with safe performance of BLE exercises to help with maintaining and increasing overall strength, endurance, flexibility -- Stressed the importance of correct and safe use of AD with all functional activities and household/community gait to help reduce risk of LOB, fall, or injury After session, patient semi reclined in bed and bed alarm on . Call button provided. All needs met, RN aware PLAN OF CARE: While in the hospital, PT will follow patient at least 3 times per week,once or twice a day, per patient's tolerance and needs. See below for complete details. 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 elbow surgery OTHER Left 07/2015 tennis elbow release Prior Living Situation: lives with their spouse and in a house, Able to negotiate: Yes Needs assistance: No DME: No device Prior level of Mobility: community ambulation, house hold ambulation Suspected ischemic or hemorraghic stroke:No Subjective: reports 10/10 head pain Patient/Family Goals: feel better Patient/Family verbalizes understanding of condition: Yes PAIN: -Pain Description: variable -Pain Location: head -Pain rating before treatment: 10, After treatment: 10 -Pain Management: Nursing Notified, Pain Meds given, Decreased movement aides in some pain reduction, Use of assistive device aides in pain reduction during mobility, and Repositioning Provided COMMUNICATION Primary Language: Bengali Able to Verbalize needs: Yes Vision:glasses Hearing:good; no issues reported ORIENTATION/COGNITION: Oriented to: person Awake: Yes Alert: Yes Dizzy: Yes Follows Commands: Yes 1-Step Yes Multi-Step No Inconsistent: Yes BALANCE: Sitting: Static: Fair Dynamic: Fair Standing: Static: Poor Dynamic: Poor RANGE OF MOTION: within functional limits bilateral LE, STRENGTH: 3+/5 (F+), bilateral LE ENDURANCE: Fair, Room air SKIN INTEGRITY: see medical chart , PROBLEM LIST: Decline in bed mobility, Decline in gait, Decline in transfers, Decreased strength, Decreased endurance, Decreased balance, and Pain ASSESSMENT: Patient is a 63 year old female seen secondary to the above listed diagnosis. Patient would benefit from continued PT to address the above listed deficits to maximize independence and safety with functional mobility. Rehabilitation Potential: good Goals: The following goals are to maximize independence and safety with functional mobility to eventually return to prior living situation and prior functional status. Upon discharge, patient and/or family will demonstrate the followin. Rolling: Independent Scooting in supine: Independent Supine-sit: Independent Sit to supine: Independent Sitting balance Excellent Scooting to edge of bed: Independent Repositioned patient to head of bed: Independent 2. Sit to stand: Supervision using rolling Walker. Stand to sit: Supervision using rolling Walker. Stand pivot transfer: Supervision 3. Supervision with ambulation, Feet: 150 using least assistive device. Treatment Plan: Gait training, Therapeutic exercise, Transfer training, Balance training, Bed mobility training, Equipment needs assessment, Safety education, patient/caregiver education, Neuromuscular Re-Education, and Functional Motor Training PATIENT EDUCATION: Patient and Family member provided with preferred teaching of verbal information and demonstration on role of PT, plan of care, . Shows readiness to learn. Verbal instruction and Demonstration teaching provided. Individual is able to read and needs reinforcement of teaching. Total Time Tx Codes in Minutes: 28 min Total Treatment Time in Minutes: 37 min Gavin Acosta PT DPT License # [id number] Rehabilitation [facility] 2024-03-26 13:09:52 Associated Order(s): CONSULT ADULT OCCUPATIONAL THERAPY OT GENERAL EVALUATION Consult received via Unbound, EMR reviewed and evaluation completed 03/26/24. 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 Eval and treatment performed in conjunction with Gavin Acosta PT secondary to anticipated limited activity tolerance and complexity. Billing for OT portion only. Patient agreeable to participate in occupational therapy. Discharge Recommendations: Therapy Needs and Potential:- Patient would benefit from continued skilled occupational therapy services to address: Decline in basic activities of daily living, Decline in instrumental activities of daily living, Decline in cognition, Decreased strength, Decreased endurance, and Decreased coordination - Patient demonstrates good potential to improve and meet therapy goals with further skilled occupational therapy services. - Patient appears motivated to improve their B/IADLs and return to their previous level of function. - Patient demonstrates ability to tolerate at least 30-60 minutes of active participation in occupational therapy. - Patient able to follow commands: 1-step Yes, Multi-step No, Inconsistencies Yes Challenges to Home Transition:- Requires physical assistance for BADLS - Requires physical assistance for IADLS - Decreased safety awareness/judgement - Increased risk of falls Equipment Recommendations:Bedside commode, Tub transfer bench, Grab bars, Hand held shower, and I certify that Siria Shafer is under my care and that I had a [id number] encounter with this patient on: 03/26/24 . The primary reason for the durable medical equipment: limited functional ambulation, fall risk. I am recomending that, based on my findings, the following is medically necessary durable medical equipment: 3 in 1 bedside commode. Height: Ht Readings from Last 1 Encounters: 03/25/24 5' 3" (1.6 m) Weight: Wt Readings from Last 1 Encounters: 03/25/24 122 lb 12.7 oz (55.7 kg) Duration of need: 99 months. Patient does not have access to regular toilet facilities because he/she is confined to: A single room. PLAN OF CARE: At least 3x/week Precautions: Weight bearing status: NA General: PPE Utilized: Gloves and Surgical mask and Fall, SBP <160, HOB >30, ICU lines/monitoring Bracing: N/A Current Occupational Performance and/or Treatment: AM-PAC 6 Clicks (Raw Score 0=Dependent, 24=Independent; Low function Raw Score 0= Dependent, 32=Independent): Raw Score - Daily Activity: 10 T-Scale Score - Daily Activity: 27.31 Feeding: Maximum Assistance to drink from cup and take a bite of eggs. Pt with decreased alertness requiring max multisensory stimulation to attend and for safe swallow. Activity ceased d/t safety concerns and risk of aspiration at this time d/t decreased alertness. Grooming: Maximum Assistance to perform facial hygiene with HUGHES assist to initiate and multisensory cues to initiate and complete UB Bathing: Maximum Assistance for sponge bathing Ues, chest, and abdomen with HUGHES assist to initiate and multisensory cues to initiate and complete UB Dressing: Maximum Assistance to don/doff gown with HUGHES assist to initiate and multisensory cues to initiate, sequence, and complete LB Dressing: Total Assistance to don socks Toileting Hygiene: Total Assistance, bustamante Functional Mobility: Supine <> sit total assist x2 persons. Cues for hand placement and technique. Pt tolerates sitting EOB approx 15 min with fluctuating levels of min-CGA. Sit <> stand mod assist using PHERESIS SPECIALIST. Cues for hand/foot placement, safety, and technique. Pt performs 4 lateral steps towards HOB using PHERESIS SPECIALIST and max multisensory cues to initiate and sequence Patient/caregiver educated on:Adaptive equipment , ADL training, AROM, Compensatory techniques/adaptive strategies, Fall prevention, General strengthening, Positioning, Role of OT, and Safety awareness Patient left semireclining in bed with call keller in reach. Spouse present, Vital signs stable , and SCDs donned and engaged. Please, see full evaluation below for more detail. OT EVALUATION: 63 year old female Admit date: 03/25/2024 Date of onset: 03/25/24 Admit Diagnosis: Unruptured cerebral aneurysm [I67.1] OT Diagnosis: Impaired BADL independence, Impaired IADL independence, Weakness, Activity intolerance, Decreased endurance, Impaired self-care mobility, Decreased UE Function DAMIR, and Impaired cognition PMH: Past Medical History: Diagnosis Date ADHD Asthma Hyperlipemia PSH: Past Surgical History: Procedure Laterality Date ANEURYSM CLIPPING Left 03/25/2024 Surgeon: Ric Schneider MD; Location: [facility] OR LOCATION HYSTERECTOMY OTHER Right 2012 Rt. elbow surgery OTHER Left 07/2015 tennis elbow release PAIN: Pain Location: head Pain rating before treatment: does not rate, After treatment: does not rate Pain Management: Nursing Notified OCCUPATIONAL ROLES/HOME ENVIRONMENT: Home environment: Lives with spouse and Single story home. Bathroom access: Yes Bathroom setup: Combo Occupation(s): Retired Function prior to admission: Household ambulation, Community ambulation, Independent with BADLs, and Independent with IADLs Suspected ischemic or hemorraghic stroke patient: No Equipment prior to admission: Hand held shower, Shower chair PERFORMANCE SKILLS/FACTORS: UE Muscle Tone: bilateral WNL UE ROM: bilateral AROM WFL UE Strength: DAMIR UE 3/5 Hand dominance: right Dexterity/Coordination: bilateral Impaired Endurance - Sitting: Fair Standing: Poor+ Sitting Balance - Static: Fair Dynamic: Fair Standing: Balance - Static Fair- Dynamic: Fair - Dizziness: No Skin Integrity: defer full skin assessment to nursing and surgical incision Sensation: bilateral Intact to light touch Oral Motor: WFL Communication: Able to verbalize needs Yes Other: N/A Vision: WFL Yes Other: N/A Hearing: good; no issues reported COGNITION: Pt unable to appropriate respond to questions, states "Hi" when seeing , and "maybe", and "My head hurts". Orientation: responds to name - unable to report name Follows Commands: 1-step Yes Multi-step No Inconsistencies Yes Safety Awareness/Judgment: Poor, Lacks insight to deficits, Requires frequent cueing, and Impulsive PROBLEM LIST: Decreased independence with ADL, Impaired postural control, Decreased strength/endurance for functional activity, Impaired safety awareness, and Impaired Cognition REHAB POTENTIAL/PROGNOSIS: good PATIENT/FAMILY GOALS: to return to OF TREATMENT/INTERVENTION PLAN: Functional motor treatment, Patient/Caregiver Education, Equipment recommendations, Daily living activities, Therapeutic exercises, Neuromuscular Re-Education, and Cognitive retraining GOAL(S): By discharge, patient will increase independence in daily living skills as follows: 1 Patient will perform toilet transfer with supervision. 2 Patient will perform UB dressing with supervision. 3 Patient will perform LB dressing with supervision. 4 Patient will complete grooming tasks with supervision while standing at the sink. 5 Patient will complete toileting hygiene, including clothing management, with supervision. 6 Patient will follow single step commands during functional task with 75% accuracy/ 7 Patient will increase endurance for functional activity as evidenced by ability to sustain 30 minutes of active participation. 8 Patient/caregiver will verbalize/demonstrate understanding/proficiency in the following home programs: Adaptive equipment , Compensatory techniques/adaptive strategies, Fall prevention, and General strengthening PATIENT-FAMILY TEACHING Patient and Family member provided with preferred teaching of verbal information on Adaptive equipment , ADL training, AROM, Compensatory techniques/adaptive strategies, Fall prevention, General strengthening, Positioning, Role of OT, and Safety awareness. Shows readiness to learn. Verbal instruction and Demonstration teaching provided. Individual needs reinforcement of teaching. Jemma Ayala OTR/L, CART ATTENDANT Total Timed Treatment Codes: 28 Min Total Treatment Time: 37 Min Patient Complexity Level High - An occupational therapy evaluation of high complexity was completed using the above tests and measures. The following information was obtained: An occupational profile and medical and therapy history, including review of medical and/or therapy records and extensive additional review of physical, cognitive, or psychosocial history related to current functional performance, Various standardized and non-standardized assessments were used to identify at least 5 or more performance deficits related to physical, cognitive, or psychosocial skills that result in activity limitations and/or participation restrictions, and Clinical decision-making is of high analytic complexity, which includes an analysis of the patient profile, analysis of data from comprehensive assessment(s), and consideration of multiple treatment options. Patient present with comorbidities that affect occupational performance. Significant modification of tasks or assistance (e.g., physical or verbal) with assessment(s) is necessary to enable patient to complete evaluation component. Terrell Ayala OT [facility] 2024-03-26 11:11:24 Associated Order(s): CONSULT LOGGING CREW FOREMAN-ADULT SW met with pt spouse at bedside Tessy [phone]. Pt Is independent. Pt does not use DME nor home health services. Pt will transport home at discharge. Pt plan to return home. Pt pending pt/ot. SW will continue to monitor and assist as needed. Care Management Social Functional Assessment Patient Name: Siria Shafer Age: [age] year old Sex: female Previous admit date: N/A Current diagnosis and co-morbidities: Unruptured cerebral aneurysm [I67.1] Readmission Questions: Was patient discharged from any acute care hospital within the last 30 days: No Alcohol Use Screening (AUDIT-C) Q1: How often do you have a drink containing alcohol?: Monthly or less SCORE: 2 Q2: How many drinks containing alcohol do you have on a typical day when you are drinking?: 1 or 2 Q3: How often do you have six or more drinks on one occasion?: Weekly Total Score (AUDIT-C): 4 Social Functional Assessment: Other mental status: Pt sleeping and at bedside. Caregiver Limitations: No caregiver issues identified Name and phone number of primary caregiver/support system: Tessy Shafer () [phone],Joan warren Bradrohan Lo (sister and brother law) [phone] MPOA: No Living Arrangement: Home Home/Caregiver address: [address] [place] [address] Baseline functional assessment-ADLS: Independent Current functional status same as prior: Yes On Service with Home Health or Provider Sevices: No Hemodialysis: No Does patient have a PCP: Yes Name of PCP: Dr. Boyer Will the patient be able to obtain his/her medications: Yes Funding Resources: [facility] Anticipated Discharge Needs: Continue Medical Eval Mode of Transportation: Family Name and phone number of the friend or family member picking up the patient: Tessy Shafer () [phone] Potential Discharge Barriers: Pending medical evaluation;Pending P/T O/T recommendation In the last 12 months, was there a time when you were not able to pay the mortgage or rent on time?: Patient declined In the last 12 months, was there a time when you did not have a steady place to sleep or slept in a [place] [facility] facility (including now)?: Patient declined In a typical week, how many times do you talk on the phone with family, friends, or neighbors?: Once a week Are you , , , , never , or living with a partner?: On average, how many days per week do you engage in moderate to strenuous exercise (like a brisk walk)?: 6 days On average, how many minutes do you engage in exercise at this level?: 30 min How hard is it for you to pay for the very basics like food, housing, medical care, and heating?: Patient declined Within the past 12 months, you worried that your food would run out before you got the money to buy more.: Patient declined Within the past 12 months, the food you bought just didn't last and you didn't have money to get more.: Patient declined SFA Complete: Social Functional Assessment complete: Yes Role of Care Management explained. Nina Crockett LMSW CLC Care Management [email or web address] 2024-03-26 10:03:37 Associated Order(s): CONSULT PS PASTORAL CARE Saw patient in response to a consult order. She was sleepy and trying to eat breakfast and still in recovery from surgery. Her was present and supportive. 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 The sports marketing coordinator offered empathy, trust-building, facilitation of personal and medical story, and prayer. Hand Method Lasting Machine Operator assesses that patient is doing well and has a strong sofy and support system for her medical journey. Gratitude for the visit was expressed. Tanisha Boss [facility] Hand Method Lasting Machine Operator (office) [phone] [place] [facility] History and Physical Notes Date/Time Note Provider Source 2024-09-19 08:33:26 H&P was reviewed and patient was examined and there was no change in patients condition. [facility] 2024-03-28 13:00:49 AMG History & Physical DATE: 03/28/2024 SERVICE: Internal Medicine CHIEF COMPLAINT: Headache post aneurysm repair HISTORY OF PRESENT ILLNESS Siria Shafer is a 63 year old female who presents to [facility] with a history of ADHD, asthma, hyperlipidemia. Patient is admitted for left internal carotid artery aneurysm repair, clipping done. Patient is out of the ICU. Awake and alert sitting in a chair, complaining of headache, right groin pain. Sister at the bedside. Patient denies any nausea vomiting, fever, chest pain, shortness of breath. Stable at 65-70. Blood pressure is 153/78 mm.. Lab work WBC count 50,020. Count 3 59,000, sodium 136, potassium 3.7, BUN 8, creatinine 0.3, CT head done on showed postsurgical changes left frontal craniotomy, left ICA aneurysm clipping extradural postoperative collection subjacent to the craniotomy and trace subarachnoid hemorrhage over the left convexity. Past medical history ADHD, asthma, hyperlipidemia Past surgical history Hysterectomy, right elbow repair Family history Father-throat cancer Mother-Reich, hypertension, diabetes Social history Tobacco-smokes 3 cigarettes/day Alcohol-drinks socially Denies drug abuse ALLERGIES Siria is allergic to amoxicillin, codeine, and penicillin. MEDICATIONS Current Facility-Administered Medications: hydralAZINE (APRESOLINE) injection 10 mg, 10 mg, Slow IV Push, Q4HPRN, Lele Leary MD, 10 mg at 03/28/24 0046 enoxaparin (LOVENOX) injection 40 mg, 40 mg, Subcutaneous, Q24H, Debo Taylor AGACNP, 40 mg at 03/28/24 0844 levETIRAcetam (KEPPRA) tablet 500 mg, 500 mg, Oral, BID, Rizwan Branch MD, 500 mg at 03/28/24 0730 niCARdipine (CARDENE I.V.) 40 mg in NaCL 200 mL (RTU) infusion, 2.5-15 mg/hr, IV Infusion, TITRATE, Adele Sauer MD, Stopped at 03/26/24 0929 sennosides-docusate sodium (SENOKOT-S) 8.6-50 mg per tablet 1 tablet, 1 tablet, Oral, DAILY, Rizwan Branch MD, 1 tablet at 03/28/24 0730 acetaminophen (TYLENOL) tablet 650 mg, 650 mg, Oral, Q6H, Edward Hdez MD, 650 mg at 03/28/24 1213 morpHINE (4 mg/mL) injection 4 mg, 4 mg, Slow IV Push, Q3HPRN, Micaela Peña MD, 4 mg at 03/28/24 0729 ondansetron (ZOFRAN (PF)) injection 4 mg, 4 mg, Slow IV Push, Q6HPRN, Edward Hdez MD, 4 mg at 03/28/24 0958 oxyBUTYnin chloride (DITROPAN) tablet 5 mg, 5 mg, Oral, QAM, Edward Hdez MD, 5 mg at 03/28/24 0730 oxyCODONE immediate release tablet 5 mg, 5 mg, Oral, Q4HPRN, Edward Hdez MD, 5 mg at 03/28/24 1030 polyethylene glycol 3350 powder 17 g, 17 g, Oral, PRN - SEE INSTRUCTIONS, Edward Hdez MD, 17 g at 03/28/24 0731 Current Discharge Medication List STOP taking these medications oxybutynin XL 5 mg 24 hr tablet Comments: Reason for Stopping: atorvastatin 10 mg tablet Comments: Reason for Stopping: cholecalciferol, vitamin D3, (VITAMIN D3 ORAL) Comments: Reason for Stopping: conjugated estrogens (PREMARIN) 0.625 mg tablet Comments: Reason for Stopping: ferrous sulfate (IRON ORAL) Comments: Reason for Stopping: TRAMADOL HCL (TRAMADOL ORAL) Comments: Reason for Stopping: ALBUTEROL SULFATE (VENTOLIN INHALE) Comments: Reason for Stopping: dextroamphetamine-amphetamine (ADDERALL) 30 mg tablet Comments: Reason for Stopping: ESTROGENS, CONJUGATED (PREMARIN ORAL) Comments: Reason for Stopping: LORazepam (ATIVAN) 1 mg tablet Comments: Reason for Stopping: PAST MEDICAL HISTORY Past Medical History: Diagnosis Date ADHD Asthma Hyperlipemia PAST SURGICAL HISTORY Past Surgical History: Procedure Laterality Date ANEURYSM CLIPPING Left 03/25/2024 Surgeon: Ric Schneider MD; Location: [facility] OR LOCATION HYSTERECTOMY OTHER Right 2012 Rt. elbow surgery OTHER Left 07/2015 tennis elbow release PAST SOCIAL HISTORY Social History Socioeconomic History Marital status: Tobacco Use Smoking status: Every Day Types: Cigarettes Passive exposure: Past Smokeless tobacco: Former Tobacco comments: 1-2 cigs occasional Vaping Use Vaping status: Some Days Substances: Nicotine, THC, CBD, Flavoring Substance and Sexual Activity Alcohol use: Yes Alcohol/week: 0.0 standard drinks of alcohol Comment: ocassional Drug use: Never Sexual activity: Yes Partners: Male Social Determinants of Health Financial Resource Strain: Patient Declined (03/26/2024) Overall Financial Resource Strain (CARDIA) Difficulty of Paying Living Expenses: Patient declined Food Insecurity: Patient Declined (03/26/2024) Hunger Vital Sign Worried About Running Out of Food in the Last Year: Patient declined Ran Out of Food in the Last Year: Patient declined Physical Activity: Sufficiently Active (03/26/2024) Exercise Vital Sign Days of Exercise per Week: 6 days Minutes of Exercise per Session: 30 min Social Connections: Unknown (03/26/2024) Social Connection and Isolation Panel [NHANES] Frequency of Communication with Friends and Family: Once a week Marital Status: Housing Stability: Patient Declined (03/26/2024) Housing Stability Vital Sign Unable to Pay for Housing in the Last Year: Patient declined Unstable Housing in the Last Year: Patient declined PAST FAMILY HISTORY Family History Problem Relation Age of Onset No Significant Medical Problems Mother REVIEW OF SYSTEMS REVIEW OF SYSTEMS Constitutional-no fever, no recent change in weight Head eyes ENT-no recent trauma, no recent change in vision or hearing Neck-no tenderness Cardiovascular -no chest pain, no palpitations, no shortness of breath, no peripheral edema Respiratory-no shortness of breath, no cough Gastrointestinal-no abdominal pain, no nausea vomiting, no hematochezia, no hematemesis, no diarrhea, no constipation Genitourinary-no dysuria no hematuria Endocrine-no heat or cold intolerance Hematological-no easy bruising, no bleeding Extremities-no edema no cyanosis Right groin pain Neurological-no focal deficits, c/o headache, no seizures, no altered mental status, no loss of consciousness Musculoskeletal-no joint pains, no muscle aches Skin-no rashes Psychiatry-no depression, no anxiety, no suicidal or homicidal thoughts PHYSICAL EXAMINATION Vitals: 03/28/24 0900 03/28/24 1000 03/28/24 1030 03/28/24 1201 BP: 133/75 (!) 145/72 (!) 144/75 Pulse: 62 59 59 Resp: 15 9 16 Temp: 36.7 ?C (98.1 ?F) TempSrc: Oral SpO2: 96% 96% 95% Weight: Height: General examination-patient is not in acute distress Head eyes ENT-left frontal craniotomy otis in place, face is symmetric, mucosa moist Neck-supple, no masses, no thyromegaly, no lymphadenopathy [id number] heard, regular heart rate, no murmurs Lungs-clear to auscultation Abdomen-soft, nondistended, bowel sounds heard, nontender Neurological-alert and oriented x3, no focal deficits Skin-no rashes Lower extremities-no edema no cyanosis Psychiatric-mood appropriate Right groin --no hematoma, no swelling, no redness LABS AND IMAGING Recent Results (from the past 24 hour(s)) Basic Metabolic Panel (NA, K, CL, CO2, GLUCOSE, BUN, CREATININE, CA) Collection Time: 03/28/24 4:32 AM Result Value Ref Range NA 136 135 - 145 mmol/L K 3.7 3.5 - 5.0 mmol/L CL 108 98 - 108 mmol/L CO2 TOTAL 16 (L) 23 - 31 mmol/L AGAP 12 2 - 16 BUN 8 7 - 23 mg/dL GLUCOSE 113 (H) 70 - 110 mg/dL CREATININE 0.31 (L) 0.50 - 1.04 mg/dL CALCIUM 9.5 8.6 - 10.6 mg/dL eGFR 119.9 mL/min/1.73m2 Cbc with Diff Collection Time: 03/28/24 4:32 AM Result Value Ref Range WBC 15.59 (H) 4.30 - 11.10 10*3/?L RBC 3.88 (L) 3.93 - 5.25 10*6/?L HGB 12.0 11.6 - 15.0 g/dL HCT 36.3 35.7 - 45.2 % MCV 93.6 80.6 - 95.5 fL MCH 30.9 25.9 - 32.8 pg MCHC 33.1 31.6 - 35.1 g/dL RDW-SD 45.8 39.0 - 49.9 fL RDW-CV 13.4 12.0 - 15.5 % PLT 359 (H) 166 - 358 10*3/?L MPV 9.0 (L) 9.5 - 12.9 fL NRBC/100 WBC 0.0 0.0 - 10.0 /100 WBCs NRBC x10 3 <0.01 10*3/?L GRAN MAT (NEUT) % 78.0 % IMM GRAN % 0.80 % LYMPH % 14.1 % MONO % 6.3 % EOS % 0.4 % BASO % 0.4 % GRAN MAT x10 3 (ANC) 12.16 (H) 1.88 - 7.09 10*3/uL IMM GRAN x10 3 0.12 (H) 0.00 - 0.06 10*3/uL LYMPH x10 3 2.20 1.32 - 3.29 10*3/uL MONO x10 3 0.98 (H) 0.33 - 0.92 10*3/uL EOS x10 3 0.07 0.03 - 0.39 10*3/uL BASO x10 3 0.06 0.01 - 0.07 10*3/uL Magnesium Collection Time: 03/28/24 4:32 AM Result Value Ref Range MAGNESIUM 2.3 1.7 - 2.4 mg/dL Radiology XR CHEST 1 VW Result Date: 03/27/2024 No acute cardiopulmonary abnormality. Preliminary Report Dictated by Resident: Jose Royal I, Anu Healy MD., have reviewed this study and agree with the above report. ASSESSMENT AND PLAN Siria Shafer is a 63 year old female who presents with: Left ICA aneurysm -- s/p craniotomy and clipping Neurosurgery follow-up Pain medication for headache CT scan on 03/26/24 showed postoperative changes Leukocytosis --likely reactive Trending down HTN -- add amlodipine and monitor Other comorbidities--ADHD, asthma, hyperlipidemia, tobacco abuse VTE prophylaxis-Lovenox Discussed with the patient and the sister at the bedside Consult pain management if the patient continues to have pain Natalya Villa MD 03/28/2024 1:01 PM [facility] - Health 2024-03-25 12:54:29 [facility] critical care H&P note: CC: Cerebral aneurysm clipping, HPI: Siria Shafer is a 63 year old female w/ PMH of left ICA aneurysm who was admitted for the aneurysm clipping. The patient tolerated procedure well. He will be monitored in the MICU/IMU closely. CURRENT MEDICATIONS: Current Facility-Administered Medications: acetaminophen (TYLENOL) tablet 650 mg, 650 mg, Oral, Q6H, Edward Hdez MD ceFAZolin (ANCEF) 2,000 mg in NaCl 0.9% (NS) 100 mL MINI-BAG, 2,000 mg, IV Piggyback, Q8H ABX, Edward Hdez MD [START ON 03/26/2024] lactulose (CEPHULAC) 10 gram/15 mL (15 mL) oral solution 30 mL, 30 mL, Oral, DAILY, Edward Hdez MD levETIRAcetam (KEPPRA) in NACL (ISO-OS) 500 mg/100 mL RTU, 500 mg, IV Piggyback, BID, Edward Hdez MD lidocaine-epinephrine (XYLOCAINE WITH EPINEPHRINE) 1 %-1:100,000 injection, , , PRN, DevanRic MD, 10 mL at 03/25/24 0759 morpHINE injection 4 mg, 4 mg, Slow IV Push, Q3HPRN, Edward Hdez MD NaCl 0.9% (NS) IV infusion 1,000 mL, 1,000 mL, IV Infusion, CONTINUOUS, Edward Hdez MD ondansetron (ZOFRAN (PF)) injection 4 mg, 4 mg, Slow IV Push, Q6HPRN, Edward Hdez MD [START ON 03/26/2024] oxyBUTYnin chloride (DITROPAN) tablet 5 mg, 5 mg, Oral, QAM, Edward Hdez MD oxyCODONE immediate release tablet 5 mg, 5 mg, Oral, Q4HPRN, Edward Hdez MD pantoprazole (PROTONIX) injection 40 mg, 40 mg, Slow IV Push, Q24H, Edward Hdez MD papaverine injection, , , PRN, Ric Schneider MD, 60 mg at 03/25/24 1017 polyethylene glycol 3350 powder 17 g, 17 g, Oral, PRN - SEE INSTRUCTIONS, Edward Hdez MD thrombin topical solution, , , PRN, Ric Schneider MD, 5,000 Units at 03/25/24 0924 vancomycin (VANCOCIN) 1 g in sodium chloride 0.9 % irrigation, , , PRN, DevanRic MD, 1 g at 03/25/24 1149 Facility-Administered Medications Ordered in Other Encounters: acetaminophen (OFIRMEV) IV piggyback, , IV Infusion, ONCE INTRA PROCEDURE, Jaskaran Menon MD, 1,000 mg at 03/25/24 1201 albuterol (VENTOLIN) inhaler, , Inhalation, ONCE INTRA PROCEDURE, Jaskaran Menon MD, 2 Puff at 03/25/24 1229 ceFAZolin (ANCEF) injection, , Slow IV Push, ONCE INTRA PROCEDURE, Jaskaran Menon MD, 2 g at 03/25/24 1200 dexamethasone (DECADRON PHOSPHATE) injection, , IV Push, ONCE INTRA PROCEDURE, Jaskaran Menon MD, 4 mg at 03/25/24 0801 esmoloL (BREVIBLOC) injection, , Slow IV Push, ONCE INTRA PROCEDURE, Jaskaran Menon MD, 50 mg at 03/25/24 1241 FENTanyl PF (SUBLIMAZE (PF)) injection, , Slow IV Push, ONCE INTRA PROCEDURE, Gopi Houser MD, 50 mcg at 03/25/24 1209 glycopyrrolate (ROBINUL) injection, , Intravenous, ONCE INTRA PROCEDURE, Jaskaran Menon MD, 0.3 mg at 03/25/24 1119 hydralAZINE (APRESOLINE) injection, , IV Push, ONCE INTRA PROCEDURE, Jaskaran Menon MD, 20 mg at 03/25/24 1243 indocyanine green (CARDIO-GREEN) injection, , Intravenous, ONCE INTRA PROCEDURE, Jaskaran Menon MD, 17.5 mg at 03/25/24 1109 lactated ringers IV infusion, , IV Infusion, CONTINUOUS PRN, Gopi Houser MD, Last Rate: 75 mL/hr at 03/25/24 0734, New Bag at 03/25/24 0734 lactated ringers IV infusion, , IV Infusion, CONTINUOUS PRN, Jaskaran Menon MD, New Bag at 03/25/24 0710 levETIRAcetam (KEPPRA) in NACL (ISO-OS) 1,000 mg/100 mL RTU, , IV Piggyback, ONCE INTRA PROCEDURE, Jaskaran Menon MD, 1,000 mg at 03/25/24 0800 lidocaine 1% (XYLOCAINE) 100 mg/10 mL (1 %) injection, , Slow IV Push, ONCE INTRA PROCEDURE, Gopi Houser MD, 5 mL at 03/25/24 0717 niCARdipine (CARDENE) 25 mg in NaCl 0.9% (NS) 250 mL infusion, , IV Infusion, CONTINUOUS PRN, Jaskaran Menon MD, Last Rate: 200 mL/hr at 03/25/24 1247, 20 mg/hr at 03/25/24 1247 niCARdipine (CARDENE) injection, , Buccal, ONCE INTRA PROCEDURE, Jaskaran Menon MD, 200 mcg at 03/25/24 1241 NORepinephrine (LEVOPHED) injection, , Intravenous, CONTINUOUS PRN, Jaskaran Menon MD, Stopped at 03/25/24 1126 propofoL IV infusion, , IV Infusion, CONTINUOUS PRN, Gopi Houser MD, Stopped at 03/25/24 1233 remifentaniL (ULTIVA) injection, , Slow IV Push, CONTINUOUS PRN, Gopi Houser MD, Stopped at 03/25/24 1236 succinylcholine (QUELICIN) injection, , IV Push, ONCE INTRA PROCEDURE, Gopi Houser MD, 100 mg at 03/25/24 0717 PAST MEDICAL HISTORY: Past Medical History: Diagnosis Date ADHD Asthma Hyperlipemia PAST SURGCIAL HISTORY: Past Surgical History: Procedure Laterality Date HYSTERECTOMY OTHER Right 2012 Rt. elbow surgery OTHER Left 07/2015 tennis elbow release FAMILY HISTORY: Family History Problem Relation Age of Onset No Significant Medical Problems Mother SOCIAL HISTORY: Social History Socioeconomic History Marital status: Spouse name: Not on file Number of children: Not on file Years of education: Not on file Highest education level: Not on file Occupational History Not on file Tobacco Use Smoking status: Every Day Types: Cigarettes Passive exposure: Past Smokeless tobacco: Former Tobacco comments: 1-2 cigs occasional Vaping Use Vaping status: Some Days Substances: Nicotine, THC, CBD, Flavoring Substance and Sexual Activity Alcohol use: Yes Alcohol/week: 0.0 standard drinks of alcohol Comment: ocassional Drug use: Never Sexual activity: Yes Partners: Male Other Topics Concern Not on file Social History Narrative Not on file Social Determinants of Health Financial Resource Strain: Not on file Food Insecurity: Not on file Transportation Needs: Not on file Physical Activity: Not on file Stress: Not on file Social Connections: Not on file Intimate Partner Violence: Not on file Housing Stability: Not on file ROS: ROS Intake/Output: Intake/Output Summary (Last 24 hours) at 03/25/2024 1254 Last data filed at 03/25/2024 1201 Gross per 24 hour Intake 2300 ml Output 2600 ml Net -300 ml Physical Exam: Temp: [36.4 ?C (97.6 ?F)] Pulse: [54] Resp: [18] BP: (156)/(83) Arterial Line BP: (80-234)/(42-162) Constitutional: Somnolence, HEENT: pupils equal, round, reactive to light; extraocular movements intact; oropharynx clear; moist mucous membranes Resp: clear to auscultation bilaterally Cardio: S1, S2 normal; no murmurs, rubs or gallops GI: soft; non-tender; non-distended; normoactive bowel sounds MSK: no clubbing, cyanosis, or edema Integ: no rashes Neuro: cranial nerves II through XII grossly intact; sensation grossly intact; muscle strength 5 out of 5 in all four extremities Psych: REVIEW OF DATA: CMP NA (mmol/L) Date Value 03/25/2024 136 K (mmol/L) Date Value 03/25/2024 3.9 CALCIUM (mg/dL) Date Value 03/25/2024 9.5 CL (mmol/L) Date Value 03/25/2024 106 BUN (mg/dL) Date Value 03/25/2024 18 CREATININE (mg/dL) Date Value 03/25/2024 0.47 (L) GLUCOSE (mg/dL) Date Value 03/25/2024 92 CO2 TOTAL (mmol/L) Date Value 03/25/2024 25 AC TC02 (mmol/L) Date Value 03/25/2024 24 CBC WBC (10*3/?L) Date Value 03/25/2024 12.93 (H) RBC (10*6/?L) Date Value 03/25/2024 4.02 PLT (10*3/?L) Date Value 03/25/2024 386 (H) HGB (g/dL) Date Value 03/25/2024 12.4 HCT (%) Date Value 03/25/2024 36.6 RADIOLOGY No final results containing an impression from the past 48 hours were found. 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 -Continue neurocheck every hour, - Continue keep SBP <140 mmHg, - Continue pain management, - Will repeat CT scan of chest if any change, - Continue to follow with neurosurgery consult recommendation, - Continue to monitor the patient in the MICU/IMU today, Micaela Peña MD Pulmonary, Critical Care, and Sleep Medicine Due to a high probability of clinically significant deterioration, the patient required my highest level of preparedness to intervene emergently and I personally spent 45 minutes of critical care time directly and personally managing the patient. This critical care time included obtaining a history; examining the patient; pulse oximetry; ordering and review of studies; arranging urgent treatment with development of a management plan; evaluation of patient's response to treatment; frequent reassessment; and, discussions with other providers. IM-CRITICAL CARE MEDICINE [facility] 2024-03-25 06:12:41 NEUROSURGERY HISTORY AND PHYSICAL Attending Neurosurgeon: Devan Reason for Admission: unruptured cerebral aneurysm HPI: Siria Shafer is a 63 year old female with PMH of HLD, ADHD, and asthma, presenting to neurosurgery clinic for evaluation of recently discovered cerebral aneurysm. She was recently evaluated in [facility] ED with anxiety attack and sudden onset of GARCIA, and incidentally found to have a 6mm ledt ICA terminus aneurysm. Presently, she denies any headaches, nausea, vomiting, weakness, numbness, or visual disturbances. Has no known family history of cerebral aneurysms. She is a current smoke- smokes 1-2 cigarettes. Last here for her DSA on 01/26/24. Now here for surgery. Past Medical History: Past Medical History: Diagnosis Date ADHD Asthma Hyperlipemia Past Surgical History: Past Surgical History: Procedure Laterality Date HYSTERECTOMY OTHER Right 2012 Rt. elbow surgery OTHER Left 07/2015 tennis elbow release ROS A 10 system ROS was negative apart from the pertinent positives noted in the HPI above. Physical Exam Vitals: Vitals: 03/20/24 0854 Weight: 52.2 kg (115 lb 1.3 oz) Awake, alert, oriented x4 PERRL bilaterally at 3mm, EOMI Face symmetric, Tongue midline UPPER EXTREMITY STRENGTH EXAM: R 5/5 5/5 5/5 5/5 5/5 D(C56) B(C56) T(C7) Loftsman(C8) I (T1) L 5/5 5/5 5/5 5/5 5/5 LOWER EXTREMITY STRENGTH EXAM: R 5/5 5/5 5/5 5/5 5/5 IP(L23) Q(L2-4) TA(L5) EHL(L5) G(S1) L 5/5 5/5 5/5 5/5 5/5 Sensation intact to LT throughout No drift Imaging: Cerebral angiogram 01/26/24 - There is an anterior pointing left ICA terminus aneurysm that measures 6 x 4 mm with a neck of 4 mm. The aneurysm is irregular in appearance. Assessment: Siria Shafer is a 63 year old female with a left ICA terminus aneurysm here for clipping. Plan: OR for left craniotomy and ICA terminus aneurysm clipping Edward Hdez MD Neurosurgery, PGY-7 [facility] Inquiries, Page [phone] [facility] Inquiries, ([phone]) Associated attestation - Ric Schneider MD - 03/25/2024 6:36 AM CDT No change in H+P. OR for left ICA aneurysm clipping. [facility] Procedure Notes Date/Time Note Provider Source 2024-09-19 08:56:04 PROCEDURE: CATARACT EXTRACTION WITH INTRAOCULAR IMPLANT DATE OF SURGERY:09/19/2024 SURGEON: Paulo Hendricks MD PROCEDURE: Extracapsular cataract extraction with intraocular lens implantation, via phacoemulsification of the Right eye. PREOPERATIVE DIAGNOSIS: Cataract Right eye. POSTOPERATIVE DIAGNOSIS: Cataract Right eye. ANESTHESIA: Local MAC ESTIMATED BLOOD LOSS: None PROCEDURE IN DETAIL: The patient was brought to the operating room where they were given IV sedation. The patient was then given a Retrobulbar injection with a 50-50 mixture of Marcaine 0.75% and Xylocaine 2%, 3-1/2 mL to the Right eye. They were then prepped and draped in the usual sterile manner. A lid speculum was placed in the Right eye. BSS was placed on the cornea. A crescent blade was used to create a 2.2 mm incision at the corneal limbus at the 1:00 position. A 15 blade was used to create a stab incision at the corneal limbus at the 10:00 position. A keratome was used to enter the anterior chamber. The anterior chamber was filled with Viscoat. A cystotome needle was used to start the capsulorrhexis. Utrata forceps completed a 360 degree curvilinear capsulorrhexis. BSS on a blunt cannula was used to hydrodissect and hydrodelineate the lens nucleus and the lens freely rotated. Phacoemulsification was used to remove the nuclear material in a divide and conquer technique. The irrigation and aspiration were used to remove the remaining cortical material. Provisc on a blunt cannula was injected into the posterior capsule and anterior chamber. A CNA0T0 18.0 diopter acrylic lens was injected into the posterior capsule through the original corneal scleral incision. The remaining provisc was irrigated and aspirated from the eye. BSS on a blunt cannula was used to inflate the anterior chamber. A Weck-Lotus sponge was used to check the wound for leaks and none was found. A combination of dexamethasone and antibiotics was injected into the conjunctiva adjacent to the original corneal scleral wound. The lid speculum was removed from the eye. Tobradex was placed on the conjunctiva. The eye was patched and shielded. The patient was discharged in the operating room in good condition. INTRAOPERATIVE COMPLICATIONS: None PATIENT NAME: Siria Shafer [facility] REC#: [id number] VISIT #: ROOM #: [facility] [address] [place] [id number] [facility] 2024-09-19 08:55:40 Brief Operative Note Date Of Operation: 09/19/2024 Surgeons Name: PAULO HENDRICKS MD Pre Operative Diagnosis: CATARACT RIGHT EYE Post Operative Diagnosis: CATARACT RIGHT EYE Operation Performed: UNDER LOCAL ANESTHESIA THE EYE WAS/WERE EXPOSED USING A LID SPECULUM. ENTRY INTO THE EYE THROUGH A MINIMAL INCISION WAS MADE FOR THE SURGICAL REMOVAL OF THE NATURAL LENS (CATARACT) AND AN ARTIFICIAL INTRAOCULAR LENS IMPLANT WAS INSERTED WITHOUT COMPLICATION. EBL: NONE Patient's Condition: PATIENT WAS DISCHARGED FROM THE FACILITY IN STABLE CONDITION. PLEASE SEE THE PATIENT DISCHARGE INSTRUCTIONS. Please see dictated operative report for additional detail. [facility]
[2024-09-27] MEDS ORDERED: KETOROLAC 30 MG/ML INJ ONE (07:19)
[2024-09-27] MEDS ORDERED: ONDANSETRON 4 MG/2 ML VIAL ONE (07:19)
[2024-09-27] MEDS ORDERED: NA CHLORIDE 0.9% 1,000 ML ONE (07:19)
--- NOTE | 2024-09-27 07:33 | RAD REPORT ---
EXAMINATION: CT ABDOMEN AND PELVIS WITHOUT CONTRAST CLINICAL INDICATION: Right flank pain TECHNIQUE: CT abdomen and pelvis was performed, without IV contrast, as per department protocol. Axia l, sagittal and coronal reconstructions were obtained. One or more of the following dose reduction techniques were used: Automated exposure control, adjustment of the mA and kV according to the patien t size, and iterative reconstruction. Unless otherwise specified, incidental findings do not require dedicated imaging follow-up. COMPARISON: 12/21/2023 FINDINGS: The lack of intravenous contrast limits the sensitivity of this exam for evaluation of solid visceral organs, vascular structures, and retroperitoneum. LOWER CHEST: The visualized lung bases are clear. LIVER:13 mm low-density lesion medial right lobe of the liver. This is favored to be benign and appea r similar to prior study. No aggressive liver lesion or biliary dilatation seen. Grossly unremarkable gallbladder. SPLEEN: Normal size. No focal lesion. PANCREAS: No mass, ductal dilation, or oziel-pancreatic fluid. ADRENALS: Normal; no mass. KIDNEYS AND URETERS: Normal size and contour. No hydronephrosis. URINARY BLADDER: Normal contour. GASTROINTESTINAL TRACT: No evidence of bowel obstruction, significant free fluid, free air or abscess . There is moderate diverticulosis coli of the sigmoid colon without diverticulitis. APPENDIX: Normal appendix. LYMPH NODES: No lymphadenopathy. MUSCULOSKELETAL: Mild multilevel spinal degenerative changes. ADDITIONAL FINDINGS: None. IMPRESSION: No acute or concerning abnormalities in the abdomen or pelvis, with evaluation limited by lack of IV contrast.
[2024-09-27 07:43] LABS: Absolute Basophils 0.2 K/uL (0-0.5); Absolute Eosinophils 0.4 K/uL (0-0.5); Absolute Lymphocytes (CBC) 2.8 K/uL (0.7-4.9); Absolute Monocytes 0.8 K/uL (0.1-1.3); Absolute Neutrophil 7.4 K/uL (1.8-8.0); Basophils % 1.4 % (0-1.3); Eosinophils % 3.1 % (0-4.4); Hematocrit 37.7 % (36.0-45.0); Hemoglobin 12.6 g/dL (12.0-15.0); Lymphocytes % 24.2 % (15.3-44.8); MCH 29.8 pg (27.0-35.0); MCHC 33.5 g/dL (32.0-36.0); MPV 7.3 fL (7.6-11.3); Monocytes % 7.3 % (3.3-12.3); Platelets 505 thou/uL (152-406); RBC Red Blood Cell Count 4.23 M/uL (3.86-4.86); Red Cell Distribution Width 14.3 % (12.1-15.2)
[2024-09-27] MEDS ORDERED: MORPHINE 4 MG/ML SYR ONE (07:46)
[2024-09-27 07:57] LABS: ALT/SGPT 21 U/L (13-56); Albumin 3.5 g/dL (3.4-5.0); Albumin/Globulin Ratio 0.9 (1.1-1.8); Alkaline Phosphatase 74 U/L (45-117); Anion Gap 8.8 mEq/L (5.0-15.0); BUN Blood Urea Nitrogen 11 mg/dL (7-18); Bicarbonate 24 mEq/L (21-32); Bilirubin Total 0.3 mg/dL (0.2-1.0); Globulin 3.7 g/dL (2.3-3.5); Glomerular Filtration Rate 102 ml/min (=/>90); Glucose Level 102 mg/dL (74-106); Potassium 3.8 mEq/L (3.5-5.1); Protein, Total 7.2 g/dL (6.4-8.2); Sodium Level 138 mEq/L (136-145)
[2024-09-27 08:00] LABS: Urine Bacteria 20-50 /HPF (<20); Urine Bilirubin NEGATIVE (Negative); Urine Blood Negative (Negative); Urine Clarity Turbid (Clear); Urine Color Light-Yellow (Yellow); Urine Culture Reflex Order NOT NEEDED; Urine Glucose NEGATIVE (Negative); Urine Ketones NEGATIVE (Negative); Urine Microscopic Reflex YN ORDER UMIC; Urine Mucus 1+ /HPF (None Seen); Urine Nitrite NEGATIVE (Negative); Urine Protein NEGATIVE (Negative); Urine RBC <5 /HPF (None Seen); Urine Urobilinogen Normal (Normal); Urine WBC <5 /HPF (<5); Urine pH 6.5 (5.0-7.0)
[2024-09-27 08:01] LABS: AST/SGOT < 10 U/L (15-37)
[2024-09-27] MEDS ORDERED: FAMOTIDINE 20 MG/2 ML VIAL IV ONE (08:22)
--- NOTE | 2024-09-27 08:38 | RAD REPORT ---
EXAM: Right upper quadrant ultrasound. CLINICAL HISTORY: ABD PAIN COMPARISON: None. FINDINGS: Gallbladder: Normal. Bile ducts: No intrahepatic or extrahepatic biliary dilatation. Common bile duct measures 3 mm. Limited imaging of the liver shows no concerning finding. IMPRESSION: Unremarkable exam.
--- NOTE | 2024-09-27 10:04 | EDPHYS ---
Physician Documentation [facility] Name: Siria Meyers Age: 64 yrs Sex: Female : 1960 Arrival Date: 09/27/2024 Time: 06:48 Bed 5 Private MD: ED Physician Johnson Georges HPI: 09/27 07:16 This 64 yrs old Female presents to ER via Unassigned with complaints of ms3 Abdominal Pain, Nausea. 07:16 64-year-old female with past medical history of asthma presents emergency department ms3 for right flank pain there is rated a 10/10. Patient states her pain began at 2 AM. She denies any alleviating or inciting factors. Patient endorses nausea. Patient denies vomiting, fevers, chills.. Historical: - Allergies: 07:10 Amoxicillin; aa5 07:10 Codeine; aa5 - Home Meds: 07:17 inhaler [Active]; aa5 - PMHx: 07:10 Asthma; aa5 - PSHx: 07:10 Right eye cataracts; aa5 - Immunization history:: Adult Immunizations unknown. - Infectious Disease History:: Denies. - Social history:: Smoking status: Patient denies any tobacco usage or history of. ROS: 07:16 Constitutional: Negative for fever, and chills. Cardiovascular: Negative for chest ms3 pain, and palpitations. Respiratory: Negative for shortness of breath, cough, wheezing, and pleuritic chest pain, 07:16 MS/Extremity: Negative for injury and deformity, Skin: Negative for injury, rash, and discoloration, 07:16 Abdomen/GI: Positive for Right flank pain, Exam: 07:16 Constitutional: This is a well developed, well nourished patient who is awake, alert, ms3 and in no acute distress. Head/Face: Normocephalic, atraumatic. Cardiovascular: Regular rate and rhythm with a normal S1 and S2. No gallops, murmurs, or rubs. Normal PMI, no JVD. No pulse deficits. Respiratory: Lungs have equal breath sounds bilaterally, clear to auscultation and percussion. No rales, rhonchi or wheezes noted. No increased work of breathing, no retractions or nasal flaring. 07:16 Back: CVA tenderness, is absent, vertebral tenderness, is not appreciated, muscle spasm, is not present, Vital Signs: 07:05 BP 156 / 92; Pulse 64; Resp 18 S; Temp 97.8(TE); Pulse Ox 100% on R/A; Weight 52.62 kg aa5 (R); Height 5 ft. 3 in. (R); 08:27 BP 138 / 76; Pulse 57; Resp 16 S; Pulse Ox 97% on R/A; aa5 09:32 BP 122 / 75; Pulse 58; Resp 16; Pulse Ox 99% on R/A; iw 07:05 Body Mass Index 20.55 (52.62 kg, 160.02 cm) aa5 MDM: 07:13 Medical Screening Exam initiated ms3 07:16 Differential diagnosis: Nonspecific abd pain, gastritis, Nephrolithiasis. ms3 10:08 Data reviewed: vital signs, nurses notes. I considered the following discharge ms3 prescriptions or medication management in the emergency department Medications were administered in the Emergency Department. See MAR. Counseling: I had a detailed discussion with the patient and/or guardian regarding the historical points, exam findings, and any diagnostic results supporting the discharge/admit diagnosis, lab results, radiology results, the need for outpatient follow up, to return to the emergency department if symptoms worsen or persist or if there are any questions or concerns that arise at home. Special discussion: I discussed with the patient/guardian in detail that at this point there is no indication for admission to the hospital. It is understood, however, that if the symptoms persist or worsen the patient needs to return immediately for re-evaluation. ED course: Discussed labs, CT and US with patient. CT does not show nephrolithiasis, RUQ US does not show cholelithiasis Discussed negative d dimer with patient. All questions answered. Return precautions given to include worsening conditions, or any other concerns. On re-evaluation patient is a/o x4, nad, non-toxic, ambulatory in ED.. 09/27 07:14 Order name: CBC with Diff; Complete Time: 07:48 ms3 09/27 07:14 Order name: CMP; Complete Time: 08:06 ms3 09/27 07:14 Order name: Urinalysis w/ reflexes; Complete Time: 08:06 ms3 09/27 09:14 Order name: D-Dimer; Complete Time: 09:46 ms3 09/27 07:14 Order name: CT Abd/Pelvis - Without Contrast; Complete Time: 07:48 ms3 09/27 07:51 Order name: US Abdomen Limited; Complete Time: 08:58 ms3 09/27 07:14 Order name: IV Saline Lock; Complete Time: 07:25 ms3 09/27 07:14 Order name: Labs collected and sent; Complete Time: 07:25 ms3 Administered Medications: 07:25 Drug: TORadol - Ketorolac IVP 15 mg IVP once Route: IVP; Site: right antecubital; aa5 07:45 Follow up: Response: No adverse reaction aa5 07:25 Drug: Ondansetron IVP 4 mg IVP once; over 2 minutes Route: IVP; Site: right antecubital;aa5 07:45 Follow up: Response: No adverse reaction aa5 07:25 Drug: NS 0.9% IV 1000 ml IV at 1 bolus Per protocol; to be given as a bolus over 60 aa5 minutes Route: IV; Rate: 1 bolus; Site: right antecubital; 08:25 Follow up: IV Status: Completed infusion; IV Intake: 1000ml aa5 07:52 Drug: morphine IVP or IV 4 mg IVP once over 4 mins Route: IVP; Infused Over: 4 mins; aa5 Site: right antecubital; 08:26 Follow up: Response: No adverse reaction; Pain is decreased aa5 08:26 Drug: Famotidine IVP 20 mg IVP once; dilute with 10 mL 0.9% NaCl; give over 2 minutes aa5 Route: IVP; Site: right antecubital; 08:32 Follow up: Response: No adverse reaction aa5 Disposition Summary: 09/27/24 10:03 Discharge Ordered Notes: Location: Home ms3 Condition: Stable ms3 Diagnosis - Abdominal pain, Generalized ms3 Followup: ms3 - With: Aníbal Wahl, DO - When: 2 - 3 days - Reason: Recheck today's complaints Discharge Instructions: - Discharge Summary Sheet ms3 - Abdominal Pain, Adult ms3 Forms: - Medication Reconciliation Form ms3 - Antibiotic Education ms3 - Prescription Opioid Use ms3 - Patient Portal Instructions ms3 - Leadership Thank You Letter ms3 Prescriptions: - Tramadol 50 mg Oral tablet - take 1 tablet ORAL route every 8 hours as needed; 9 tablet; Refills: 0, Product ms3 Selection Permitted Signatures: Dispatcher [employer] EDMS Halley Willoughby, RN RN aa5 Johnson Georges DO DO ms3 Corrections: (The following items were deleted from the chart) 07:14 07:10 PMHx: diabetes mellitus; aa5 aa5 07:15 07:15 CBC+H.LAB.BRZ ordered. EDMS EDMS 07:15 07:15 COMPREHENSIVE METABOLIC PANEL+C.LAB.BRZ ordered. EDMS EDMS 07:15 07:15 Urinalysis+U.LAB.BRZ ordered. EDMS EDMS 07:15 07:15 Abdomen Pelvis Wo Con+CT.RAD.BRZ ordered. EDMS EDMS 07:51 07:51 Abdomen Limited+US.RAD.BRZ ordered. EDMS EDMS
--- NOTE | 2024-09-27 10:04 | ER ---
Nurse's Notes [facility] Name: Siria Meyers Age: 64 yrs Sex: Female : 1960 Arrival Date: 09/27/2024 Time: 06:48 Bed 5 Private MD: Diagnosis: Abdominal pain, Generalized Presentation: 09/27 07:05 Chief complaint: Patient states: RUQ pain radiating around to back that began at 0200, aa5 reports nausea, denies vomiting. 07:05 Onset of symptoms was September 27, 2024. aa5 07:05 Acuity: ARIELLA 3 aa5 07:05 Method Of Arrival: Ambulatory aa5 07:05 Coronavirus screen: nausea. Ebola Screen: Patient denies travel to an Ebola-affected [facility] area in the 21 days before illness onset. Initial Sepsis Screen: Does the patient meet any 2 criteria? No. Patient's initial sepsis screen is negative. Does the patient have a suspected source of infection? No. Patient's initial sepsis screen is negative. Risk Assessment: Do you want to hurt yourself or someone else? Patient reports no desire to harm self or others. Historical: - Allergies: 07:10 Amoxicillin; aa5 07:10 Codeine; aa5 - Home Meds: 07:17 inhaler [Active]; aa5 - PMHx: 07:10 Asthma; aa5 - PSHx: 07:10 Right eye cataracts; aa5 - Immunization history:: Adult Immunizations unknown. - Infectious Disease History:: Denies. - Social history:: Smoking status: Patient denies any tobacco usage or history of. Screenin:10 [facility] ED Fall Risk Assessment (Adult) History of falling in the last 3 months, aa5 including since admission No falls in past 3 months (0 pts) Confusion or Disorientation No (0 pts) Intoxicated or Sedated No (0 pts) Impaired Gait No (0 pts) Mobility Assist Device Used No (0 pt) Altered Elimination No (0 pt) Score/Fall Risk Level 0 - 2 = Low Risk Oriented to surroundings, Maintained a safe environment, Educated pt \T\ family on fall prevention, incl call for assistance when getting out of bed. Abuse screen: Denies threats or abuse. Nutritional screening: No deficits noted. Tuberculosis screening: No symptoms or risk factors identified. Assessment: 07:05 General: Appears uncomfortable, Behavior is calm, cooperative. Pain: Complains of pain aa5 in right upper quadrant Pain radiates to right mid back Quality of pain is described as crampy, sharp, Pain began 0200 Is continuous. Neuro: Level of Consciousness is awake, alert, obeys commands, Oriented to person, place, time, situation. Cardiovascular: Patient's skin is warm and dry. Respiratory: Airway is patent Respiratory effort is even, unlabored, Respiratory pattern is regular, symmetrical. GI: Abdomen is non-distended, Bowel sounds present X 4 quads. Abd is soft and non tender X 4 quads. Reports nausea, Patient currently denies vomiting. : No signs and/or symptoms were reported regarding the genitourinary system. EENT: No signs and/or symptoms were reported regarding the EENT system. Derm: Skin is pink, warm \T\ dry. Musculoskeletal: Range of motion: intact in all extremities. 07:45 Reassessment: Patient is alert, oriented x 3, equal unlabored respirations, skin aa5 warm/dry/pink. Pain: Pain currently is 8 out of 10 on a pain scale. Noted to be guarding, moaning. 07:45 Reassessment: MD notified of pain level. . aa5 08:25 Reassessment: Patient is alert, oriented x 3, equal unlabored respirations, skin aa5 warm/dry/pink. Pt appears more comfortable than previous assessment. . Pain: Pain currently is 6 out of 10 on a pain scale. 09:31 Reassessment: Patient appears in no apparent distress at this time. Patient and/or iw family updated on plan of care and expected duration. Pain level reassessed. Patient is alert, oriented x 3, equal unlabored respirations, skin warm/dry/pink. d-dimer sent. Vital Signs: 07:05 BP 156 / 92; Pulse 64; Resp 18 S; Temp 97.8(TE); Pulse Ox 100% on R/A; Weight 52.62 kg aa5 (R); Height 5 ft. 3 in. (R); 08:27 BP 138 / 76; Pulse 57; Resp 16 S; Pulse Ox 97% on R/A; aa5 09:32 BP 122 / 75; Pulse 58; Resp 16; Pulse Ox 99% on R/A; iw 07:05 Body Mass Index 20.55 (52.62 kg, 160.02 cm) aa5 ED Course: 06:50 Patient arrived in ED. [email or web address] 07:02 Johnson Georges DO is Attending Physician. ms3 07:05 Arm band placed on Patient placed in an exam room, on a stretcher. aa5 07:05 Patient has correct armband on for positive identification. Bed in low position. Call aa5 light in reach. Side rails up X 1. Pulse ox on. NIBP on. 07:10 Halley Willoughby, RN is Primary Nurse. aa5 07:16 Triage completed. aa5 07:21 Initial lab(s) drawn, by me, sent to lab. Inserted saline lock: 20 gauge in right iw antecubital area, using aseptic technique. Blood collected. Flushed with 10 mL NS. 07:26 CT Abd/Pelvis - Without Contrast In Process Unspecified. EDMS 07:26 Urine collected: sent to lab. aa5 07:47 No provider procedures requiring assistance completed. aa5 08:22 US Abdomen Limited In Process Unspecified. EDMS 09:31 D-Dimer Sent. iw 10:02 Aníbal Wahl DO is Referral Physician. ms3 Administered Medications: 07:25 Drug: TORadol - Ketorolac IVP 15 mg IVP once Route: IVP; Site: right antecubital; aa5 07:45 Follow up: Response: No adverse reaction aa5 07:25 Drug: Ondansetron IVP 4 mg IVP once; over 2 minutes Route: IVP; Site: right antecubital;aa5 07:45 Follow up: Response: No adverse reaction aa5 07:25 Drug: NS 0.9% IV 1000 ml IV at 1 bolus Per protocol; to be given as a bolus over 60 aa5 minutes Route: IV; Rate: 1 bolus; Site: right antecubital; 08:25 Follow up: IV Status: Completed infusion; IV Intake: 1000ml aa5 07:52 Drug: morphine IVP or IV 4 mg IVP once over 4 mins Route: IVP; Infused Over: 4 mins; aa5 Site: right antecubital; 08:26 Follow up: Response: No adverse reaction; Pain is decreased aa5 08:26 Drug: Famotidine IVP 20 mg IVP once; dilute with 10 mL 0.9% NaCl; give over 2 minutes aa5 Route: IVP; Site: right antecubital; 08:32 Follow up: Response: No adverse reaction aa5 Medication: 07:36 VIS not applicable for this client. aa5 Intake: 08:25 IV: 1000ml; Total: 1000ml. aa5 Outcome: 10:03 Discharge ordered by MD. little3 10:15 Patient left the ED. iw Signatures: Dispatcher [employer] EDBrooklyn Metcalf RN RN iw Halley Willoughby RN RN aa5 Johnson Georges DO DO ms3 Caren Rousseau [email or web address] Corrections: (The following items were deleted from the chart) 07:14 07:10 PMHx: diabetes mellitus; aa5 aa5
[2024-09-27 10:19] VITALS: TEMP 97.8
[2024-09-27 10:22] VITALS: BP 122/75; O2SAT 99
== END 2024-09-27 10:15 | disposition home or self-care (01) ==
LOC: ER 06:48
DX: R10.84 Generalized abdominal pain (principal)
CPT/HCPCS: 96361; 85025; 81001; 36415; 85379; 80053; 74176; 76705; 96375; 96374; 99284; J2405; J7030